=== PATIENT | female | born 1945 | race Caucasian/White ===

== ENCOUNTER → 2016-11-22 | Outpatient (CLI) | payer BC ==
[~2016-11-22] MED LIST: CLXOPS3 OP; FAMO20TA11 PO; LISI-725 PO; MULT-506 PO; SIMV20TA2 PO
[2016-11-22 11:07] LABS: ALT/SGPT 51 U/L (12-78); BLOOD UREA NITROGEN 17 mg/dl (7-18); BUN/CREATININE RATIO 21.3 (10-20); CARBON DIOXIDE 27 mmol/L (21-32); CHLORIDE 109 mmol/L (98-107); CREATININE 0.79 mg/dl (0.60-1.20); GLUCOSE 89 mg/dl (70-99); POTASSIUM 4.1 mmol/L (3.5-5.1); SODIUM 143 mmol/L (136-145); TRIGLYCERIDES 68 mg/dl (0-150); VERY LOW DENSITY LIPOPROT CALC 14 mg/dl
[2016-11-22 11:10] LABS: ALB/GLOB RATIO 0.9 (0.9-2); ALKALINE PHOSPHATASE 109 U/L (45-117); AST/SGOT 48 U/L (15-37); CHOLESTEROL 118 mg/dl (0-200); CHOLESTEROL/HDL RATIO 1.8; HDL CHOLESTEROL 66 mg/dl; LDL CHOLESTEROL CALCULATED 38 mg/dl
== END | disposition home or self-care (01) ==
LOC: C.LAB 09:26
PROVIDERS: ATTEND Family Medicine
DX: I10 Essential (primary) hypertension (principal); E78.5 Hyperlipidemia, unspecified; E55.9 Vitamin D deficiency, unspecified

== ENCOUNTER → 2017-11-28 | Outpatient (CLI) | payer BC ==
[2017-11-28 10:02] LABS: ALBUMIN 3.8 gm/dl (3.4-5.0); ALT/SGPT 71 U/L (12-78); BLOOD UREA NITROGEN 20 mg/dl (7-18); CALCIUM 9.7 mg/dl (8.5-10.1); CARBON DIOXIDE 23 mmol/L (21-32); CHOLESTEROL 106 mg/dl (0-200); CREATININE 0.81 mg/dl (0.60-1.20); GLUCOSE 88 mg/dl (70-99); POTASSIUM 3.8 mmol/L (3.5-5.1); SODIUM 139 mmol/L (136-145)
[2017-11-28 10:05] LABS: ALKALINE PHOSPHATASE 117 U/L (45-117); AST/SGOT 61 U/L (15-37); LDL CHOLESTEROL CALCULATED 32 mg/dl; TOTAL PROTEIN 7.8 gm/dl (6.4-8.2)
== END | disposition home or self-care (01) ==
LOC: C.LAB 06:45
PROVIDERS: ATTEND Nurse Practitioner Family
DX: E78.5 Hyperlipidemia, unspecified (principal); I10 Essential (primary) hypertension

== ENCOUNTER 2021-08-04 12:41 | Inpatient (IN) ==
[2021-08-04 14:44] LABS: Basophils # (auto) 0.01 K/uL (0-0.2); Basophils % (auto) 0.1 %; Eosinophils # (auto) 0.02 K/uL (0-0.5); Eosinophils % (auto) 0.2 %; Hematocrit (blood only) 35.8 % (37-47); Immature Granulocytes # (auto) 0.01 K/uL (0.00-0.02); Immature Granulocytes % (auto) 0.1 %; Lymphocytes # (auto) 1.76 K/uL (1.2-3.4); Lymphocytes % (auto) 20.7 %; Mean Corpuscular Hemoglobin 30.6 pg (25-34); Mean Corpuscular Hgb Conc 33.5 g/dL (32-36); Mean Corpuscular Volume 91.3 fL (80-100); Mean Platelet Volume 11.5 fL (7.4-10.4); Monocytes # (auto) 1.38 K/uL (0.11-0.59); Monocytes % (auto) 16.2 %; Neutrophils # (auto) 5.34 K/uL (1.4-6.5); Neutrophils % (auto) 62.7 %; Platelet Count 132 K/uL (130-400); RDW Coefficient of Variation 21.1 % (11.5-14.5); Red Blood Count 3.92 M/uL (4.2-5.4); White Blood Count 8.52 K/uL (4.8-10.8)
[2021-08-04 14:56] LABS: Alanine Aminotransferase 921 (12-78); BUN Creatinine Ratio 15.6 (10-20); Blood Urea Nitrogen 14 mg/dl (7-18); Calcium 8.1 mg/dl (8.5-10.1); Carbon Dioxide 22 mmol/L (21-32); Chloride 100 mmol/L (98-107); Est GFR (African American) 76.1 ml/min; Est GFR (Non-African American) 65.6 ml/min; Glucose 158 mg/dl (70-99); Lipase 1348 U/L (73-393); Sodium 131 mmol/L (136-145)
[2021-08-04 15:01] LABS: Albumin Globulin Ratio 0.4 (0.9-2); Alkaline Phosphatase 485 U/L (45-117); Aspartate Aminotransferase 2788 U/L (15-37); Bilirubin,Total 16.2 mg/dl (0.2-1); Globulin 4.6 gm/dl (2.5-4.0); Total Protein 6.6 gm/dl (6.4-8.2)
[2021-08-04 15:15] LABS: Anisocytosis Present; Polychromasia 1+; Target Cells 2+
--- NOTE | 2021-08-04 15:22 | Emergency Department Note ---
History of Present Illness General Chief complaint: Shortness of Breath/Dyspnea Stated complaint: WEAKNESS, SOB, CONGESTION, FEVER Time Seen by Provider: 08/04/21 14:47 Source: patient History of Present Illness Provider complaint: Shortness of breath Onset (ago): week(s) Location: chest Pain Consistency: + intermittent Maximum Pain Intensity: 0 Quality: + other (Short of breath) Relieved By: + rest Associated symptoms: + cough, + nausea/vomiting (Vomited once), + shortness of breath and + weakness; no chest pain or no fever/chills This is a 76-year-old female who presents with shortness of breath for the past week. She was diagnosed with Covid 2 weeks ago. She is vaccinated but has not received the booster shot. Her last shot was in September. She states that she developed bronchitis-like symptoms 2 weeks ago. She then developed shortness of breath about a week ago. She has been coughing throughout but denies any fever, loss of taste or smell or diarrhea. She has had no chest pain or abdominal pain. She does state that she vomited once several days ago but not since. She noted that her urine started to look very dark several days ago and then 2 days ago noticed that her skin was jaundiced. She states she does not drink alcohol regularly. Last time she had alcohol was about a month ago. She also complains of pain to her thighs. She states it feels like a cramping pain and it is worse when she tries to get up. She has difficulty walking due to the pain and also feels that her legs are weak. She has not noticed any swelling to her legs. Home Medications Medication Instructions Recorded Confirmed Type amlodipine 5 mg tablet 5 mg PO DAILY 08/04/21 08/04/21 History atorvastatin 80 mg tablet 80 mg PO DAILY 08/04/21 08/04/21 History ezetimibe 10 mg tablet 10 mg PO DAILY 08/04/21 08/04/21 History Allergies Allergy/AdvReac Type Severity Reaction Status Date / Time No Known Allergies Allergy Unknown Verified 08/04/21 16:27 Past Med/Surg History Medical History High cholesterol Hypertension Social History Smoking Status: Never smoker Feels Safe at Home: Yes Review of Systems See HPI for pertinent positives & negatives. and A total of 10 systems reviewed and were otherwise negative Physical Exam Vital Signs Vital Signs - 24 hr 08/04/21 12:53 08/04/21 16:41 08/04/21 18:00 Temperature 36.5 C 36.7 C Temperature Source Temporal Artery Scan Oral Pulse Rate 101 H Pulse Rate [Finger] 90 90 Pulse Rhythm Regular Pulse Strength Normal Respiratory Rate 20 18 18 Respiratory Effort / Characteristics Non-Labored Spontaneous Respiratory Depth Normal Respiratory Pattern Regular Blood Pressure 131/75 Blood Pressure [Right Arm] 85/42 L 85/42 L Blood Pressure Mean 93 Blood Pressure Mean [Right Arm] 56 56 Blood Pressure Position Sitting Pulse Oximetry 97 97 99 Oxygen Delivery Method Room Air Room Air Room Air Sepsis Recent Fever Within 48 Hours No Sepsis New/Unexplained Change in Mental Status N/A Sepsis Action Taken by Nursing No Action Required Constitutional: Vital signs reviewed. Eyes: Pupils are equal round reactive to light. Scleral icterus. ENT: Pharynx is clear without erythema or exudate. Mucous membranes are dry. Neck supple without meningeal signs. Respiratory: Clear to auscultation bilaterally. Breath sounds are equal bilaterally. Cardiovascular: Regular rate and rhythm. No rubs or gallops. GI: Soft, nondistended and nontender. Bowel sounds are present. Musculoskeletal: Nonpitting edema of the lower extremities. No lower extremity tenderness. Normal distal pulses. Integumentary: Jaundiced. Neurological: The patient is awake and alert. No focal deficits. Motor strength is 5 out of 5 in the distal lower extremities. Unable to assess proximal strength due to pain. Psychiatric: Normal affect. Not anxious appearing. Course Administered Medications Discontinued Medications Potassium Chloride (K Carlos / Wtr) 10 meq in 100 mls @ 100 mls/hr IV Q1H CHAUNCEY Stop: 08/04/21 18:14 Last Infusion: 08/04/21 20:41 Dose: 100 mls/hr Documented by: [id number] Admin: 08/04/21 19:10 Dose: 100 mls/hr Documented by: [id number] Infusion: 08/04/21 18:52 Dose: 100 mls/hr Documented by: [id number] Admin: 08/04/21 17:52 Dose: 100 mls/hr Documented by: [id number] Sodium Chloride (Nss 1000ml) 1,000 mls @ 999 mls/hr IV .Q1H1M ONE Stop: 08/04/21 19:25 Last Admin: 08/04/21 20:42 Dose: 999 mls/hr Documented by: [id number] Piperacillin Sod/Tazobactam (Sod 4.5 gm/ Dextrose) 120 mls @ 200 mls/hr IV NOW ONE; Protocol Stop: 08/04/21 19:00 Last Admin: 08/04/21 21:31 Dose: Not Given Documented by: [id number] Acetylcysteine 12,300 mg/ (Dextrose) 261.5 mls @ 200 mls/hr IV ONCE ONE; Protocol Stop: 08/04/21 19:46 Last Admin: 08/04/21 21:32 Dose: 200 mls/hr Documented by: [id number] Critical Care Time Critical Care Time: Yes Total Critical Care Time: 35 I have personally spent approximately 35 minutes of critical care time in the direct management of this patient. This includes bedside care, interpretation of diagnostic studies, and testing, discussion with consultants, patient, and family members, and other required patient management activities. These minutes are in excess of all separately billable procedures. Medical Decision Making Differential Diagnosis Pneumonia, dehydration, COVID-19, hepatitis, biliary obstruction, pancreatitis, choledocholithiasis Medical Records Attestation: I reviewed the patient's medical records. I did perform a limited focused review of portions of the patient's old chart on the electronic medical record. The patient has had no recent pertinent visits to this hospital. Home Medications Current Medication List: was personally reviewed by me Laboratory Data Attestation: I reviewed the patient's lab results. Result diagrams: 08/04/21 Unknown 08/04/21 Unknown Lab Results 08/04/21 08/04/21 08/04/21 Range/Units 14:19 17:43 17:43 PT (9.0-12.0) Seconds INR (0.9-1.1) APTT (21.0-31.0) Seconds PTT Ratio Phosphorus 1.4 L* (2.5-4.9) mg/dl Magnesium 2.6 H (1.8-2.4) mg/dl Acetaminophen Cancelled Hep Bs Antigen (Neg) Hepatitis C Antibody (Neg) Monoscreen Negative (Negative) SARS-CoV-2, RNA, NAAT (NEGATIVE) 08/04/21 08/04/2121 Range/Units 17:43 17:43 19:00 PT 13.4 H (9.0-12.0) Seconds INR 1.4 H (0.9-1.1) APTT 39.9 H (21.0-31.0) Seconds PTT Ratio 1.5 Phosphorus (2.5-4.9) mg/dl Magnesium (1.8-2.4) mg/dl Acetaminophen Hep Bs Antigen Neg (Neg) Hepatitis C Antibody Neg (Neg) Monoscreen (Negative) SARS-CoV-2, RNA, NAAT NEGATIVE (NEGATIVE) Imaging Data Radiologist's Impression: Chest X-Ray 08/04/21 15:18 XR chest 2V PA/lateral HISTORY: 76 years-old Female covid eval for pna acute shortness of breath COMPARISON: None TECHNIQUE: AP and lateral views of the chest FINDINGS: The cardiac mediastinal and hilar silhouettes are within normal limits. Coarse mitral annular calcifications. No pneumothorax, pleural effusion, airspace consolidation or overt pulmonary edema. No acute fracture. Degenerative changes of the shoulders and spine. IMPRESSION: No acute process. ACT 112: Negative or not required by law. The above report was generated using voice recognition software. It may contain grammatical, syntax or spelling errors. Electronically signed by: Can Oshea M.D. 08/04/2021 3:39 PM Liver Ultrasound 08/04/21 15:18 US liver HISTORY: 76 years-old Female jaundice/pancreatitis eval for bioliary obstructio acute jaundice with upper abdominal pain COMPARISON: None TECHNIQUE: Multiple real-time sonographic images of the abdominal right upper quadrant were obtained assessing grayscale appearance and color flow FINDINGS: The imaged pancreas is unremarkable. Mild nonspecific heterogeneity of the liver. Mild marginal nodularity. No hepatic mass or intrahepatic biliary ductal dilation. The common bile duct is normal measuring 4 mm. Cholecystectomy. The imaged right kidney is unremarkable without hydronephrosis. IMPRESSION: 1. Cholecystectomy. 2. No biliary ductal dilation. 3. Heterogeneity of the liver with questioned marginal nodularity. Correlate with LFTs to exclude cirrhosis. ACT 112: Negative or not required by law. The above report was generated using voice recognition software. It may contain grammatical, syntax or spelling errors. Electronically signed by: Can Oshea M.D. 08/04/2021 5:55 PM Venous Doppler Study 08/04/21 15:23 BILATERAL LOWER EXTREMITY VENOUS DOPPLER HISTORY: Acute pain and swelling of the lower legs pain eval for DVT COMPARISON STUDY: None. FINDINGS: There is normal compressibility, flow, and augmentation within the bilateral lower extremity deep venous systems. IMPRESSION: No DVT within the right or left lower extremity. ACT 112: Negative or not required by law. Electronically signed by: Can Oshea M.D. 08/04/2021 5:44 PM ECG Data Attestation: I personally reviewed and interpreted this ECG as follows: Indication: + SOB/dyspnea Rate (beats per minute): 96 Rhythm: + normal sinus ECG Intervals/blocks: + Prolonged QT ECG ST segments: no ST elevation ECG Findings: + LVH Comparison ECG Date: no prior available MDM Narrative I did evaluate the patient as noted above. The patient has contracted COVID-19 about 2 weeks ago. She is presenting here today with pain and weakness in her l egs as well as jaundice. IV access was established. I did place an order for continuous cardiac monitoring. The monitor showed normal sinus rhythm at a rate of 99 bpm. I did order and personally review the patient's 12-lead EKG as described above. She has a prolonged QT interval which may be related to her hypokalemia. No acute ischemia is noted. She does have evidence of LVH. No old EKGs available for comparison. I did order and personally reviewed the images of the patient's chest x-ray as described above. There is no evidence of pneumonia. I did order a urine analysis. I did order and review the patient's blood work as noted in the electronic medical record. CBC does not demonstrate leukocytosis or anemia. Platelet count is 132. Electrolytes demonstrate a sodium of 131 and a potassium of 3. I did treat her with IV KCl. Calcium is 8.1. LFTs are grossly abnormal with a ALT and AST of 921 and 2788 respectively. Total bili is 16.2. Alk phos is 45 and lipase is 1348. She states she is not a drinker and has not had alcohol for over a month. She denies using Tylenol or acetaminophen. She states she only takes ibuprofen. She denies taking any combination medications. Monospot is negative. Hepatitis B antigen and hepatitis C antibody are negative. INR is elevated at 1.4. I did order an ultrasound of the right upper quadrant and Doppler of the lower extremities bilaterally. I did review the images myself as well as the radiology report as described above. There is no evidence of biliary obstruction. There is no evidence of DVT in the lower extremities. I did discuss the test results with the patient. I did discuss the case with the hospitalist as well as Dr. Betancourt from gastroenterology. Dr. Betancourt recommended treating the patient with acetylcysteine. I did order Acetadote IV based on a weight-based protocol. She was given a bolus over an hour and then a subsequent infusion. She will require further imaging to evaluate for pancreatic head mass and MRCP. She had a positive home test for COVID-19 but we did test her here and it was negative. Impression & Plan Hyperbilirubinemia, Hepatitis, Acute hypokalemia, Hypocalcemia, Acute pancreatitis, Bilateral leg pain, Ambulatory dysfunction Discharge Plan Visit Data Chief Complaint: Shortness of Breath/Dyspnea Stated Complaint: WEAKNESS, SOB, CONGESTION, FEVER ED Provider: Lai Aiken Discharge Problem: Hyperbilirubinemia, Hepatitis, Acute hypokalemia, Hypocalcemia, Acute pancreatitis, Bilateral leg pain, Ambulatory dysfunction Patient Disposition: Being Evaluated by Hospitalist
--- NOTE | 2021-08-04 15:40 | XRay Report ---
XR chest 2V PA/lateral HISTORY: 76 years-old Female covid eval for pna acute shortness of breath COMPARISON: None TECHNIQUE: AP and lateral views of the chest FINDINGS: The cardiac mediastinal and hilar silhouettes are within normal limits. Coarse mitral annular calcifi cations. No pneumothorax, pleural effusion, airspace consolidation or overt pulmonary edema. No acute fracture. Degenerative changes of the shoulders and spine. IMPRESSION: No acute process. ACT 112: Negative or not required by law. The above report was generated using voice recognition software. It may contain grammatical, syntax o r spelling errors. Electronically signed by: Can Oshea M.D. 08/04/2021 3:39 PM
[2021-08-04 17:10] LABS: C Reactive Protein 4.42 mg/dl (0-0.29)
--- NOTE | 2021-08-04 17:45 | Ultrasound Report ---
BILATERAL LOWER EXTREMITY VENOUS DOPPLER HISTORY: Acute pain and swelling of the lower legs pain eval for DVT COMPARISON STUDY: None. FINDINGS: There is normal compressibility, flow, and augmentation within the bilateral lower extremit y deep venous systems. IMPRESSION: No DVT within the right or left lower extremity. ACT 112: Negative or not required by law. Electronically signed by: Can Oshea M.D. 08/04/2021 5:44 PM
[2021-08-04] MEDS: POTASSIUM CHLORIDE / WTR 10 MEQ/100 ML PLCT IV SCH ×2 (17:52→19:10)
--- NOTE | 2021-08-04 17:56 | Ultrasound Report ---
US liver HISTORY: 76 years-old Female jaundice/pancreatitis eval for bioliary obstructio acute jaundice with upper abdominal pain COMPARISON: None TECHNIQUE: Multiple real-time sonographic images of the abdominal right upper quadrant were obtained assessing grayscale appearance and color flow FINDINGS: The imaged pancreas is unremarkable. Mild nonspecific heterogeneity of the liver. Mild marginal nodul arity. No hepatic mass or intrahepatic biliary ductal dilation. The common bile duct is normal measur ing 4 mm. Cholecystectomy. The imaged right kidney is unremarkable without hydronephrosis. IMPRESSION: 1. Cholecystectomy. 2. No biliary ductal dilation. 3. Heterogeneity of the liver with questioned marginal nodularity. Correlate with LFTs to exclude cir rhosis. ACT 112: Negative or not required by law. The above report was generated using voice recognition software. It may contain grammatical, syntax o r spelling errors. Electronically signed by: Can Oshea M.D. 08/04/2021 5:55 PM
[2021-08-04 18:05] LABS: INR 1.4 (0.9-1.1); Partial Thromboplastin Ratio 1.5; Partial Thromboplastin Time 39.9 Seconds (21.0-31.0); Prothrombin Time 13.4 Seconds (9.0-12.0)
[2021-08-04] MEDS ORDERED: PIPERACILLIN/TAZOBACTAM 4.5 GM in DEXTROSE 5% 100 ML IV ONE (18:25)
[2021-08-04] MEDS ORDERED: PIPERACILL/TAZOBAC CONSULT ACTIVE PRN (18:25)
[2021-08-04] MEDS ORDERED: SODIUM CHLORIDE 0.9% 1000ML 1,000 ML IV ONE (18:25)
[2021-08-04 18:34] LABS: Hepatitis B Surf Ag Rflx Conf Neg (Neg)
[2021-08-04] MEDS ORDERED: AcetylCYSTEINE 12,300 MG in DEXTROSE 5% 200 ML IV ONE (18:47)
[2021-08-04] MEDS ORDERED: AcetylCYSTEINE 8,200 MG in DEXTROSE 5% 1,000 ML IV ONE (18:47)
[2021-08-04 19:02] LABS: Hepatitis C IgG 13Yrs+Old_Rflx Neg (Neg)
[2021-08-04 20:28] LABS: Magnesium 2.6 mg/dl (1.8-2.4); Phosphorus 1.4 mg/dl (2.5-4.9)
--- NOTE | 2021-08-04 22:13 | History & Physical Report ---
Date of Service August 04, 2021 Assessment & Plan (1) Acute liver failure: Plan: No hepatic encephalopathy Hepatitis viral panel, EBV, CMV, HSV, LANCE, anti-smooth muscle antibodies Start 21 hour acetylcysteine IV protocol Discussed with Dr Betancourt. Patient unable to tolerate MRCP therefore will get CT with and without contrast to assess for pancreatic mass Repeat INR at 10 PM to assess for acute progression. If significantly increasing will discuss with [facility] for potential transfer. (2) Hypertension: Plan: Hold amlodipine (3) High cholesterol: Plan: Hold atorvastatin and ezetimibe (4) Acute hypokalemia: Plan: KCl 10 milliequivalents x2 IV given in the ER Repeat with next labs Plan: VTE prophylaxis - deferred due to increased bleeding risk in liver failure Diet - NPO Disposition - admit to PCU pending clinical improvement Admission and Anticipated Discharge Date Admission Date: August 04, 2021 History of Present Illness Chief Complaint: Jaundice Primary Care Provider: Jasiel Sauceda MD Nasrin Ramirez is a 76-year-old female with no prior history of liver disease who presents to the ER with jaundice. She reports chronic bronchitis but possibly worsening cough and cold symptoms in the last 3 to 4 weeks. No significant sore throat. She reports having a home test for Covid 19 2 weeks ago which was positive, however PCR testing 7 days ago was negative. For the past week she is getting increasingly fatigued. Over the last 2 days she has noted significant yellowing of her skin and eyes. She reports no recent alcohol use (approximately 1 month ago). She denies any fever, chills, urinary symptoms, abdominal pain, change in bowels, melena, bright red blood in stool. In the ER LFTs noted to be significantly elevated with total bilirubin of 16.2. Fortunately platelets within normal limits, INR 1.4. Ultrasound liver did not show any obstructing cause. She was referred to medicine for admission ongoing management of acute liver failure. Allergies Allergy/AdvReac Type Severity Reaction Status Date / Time No Known Allergies Allergy Unknown Verified 08/04/21 16:27 Home Medications Medication Instructions Recorded Confirmed Type amlodipine 5 mg tablet 5 mg PO DAILY 08/04/21 08/04/21 History atorvastatin 80 mg tablet 80 mg PO DAILY 08/04/21 08/04/21 History ezetimibe 10 mg tablet 10 mg PO DAILY 08/04/21 08/04/21 History Past Med/Surg History Medical History High cholesterol Hypertension Social History Smoking Status: Never smoker Feels Safe at Home: Yes Review of Systems Review of Systems: All systems reviewed & are unremarkable except as noted in HPI & below Physical Exam Constitutional: well nourished; no acute distress Eyes: sclerae not anicteric ENMT: external ear and nose normal, oropharynx normal Neck: trachea midline, no thyromegaly Respiratory: normal respiratory effort, lungs clear to auscultation Cardiovascular: RRR, no murmur, no edema Gastrointestinal (Abdomen): Inspection/Auscultation: + hypoactive bowel sounds; abdomen not distended Percussion/Palpation: abdomen soft; abdomen nontender, no guarding and abdomen not rigid Musculoskeletal: no cyanosis or clubbing, extremities motor strength 5/5 Skin: + jaundice Neurologic: moves all extremities and awake; not confused Speech / Cognition: normal speech Motor/Sensory: no pronator drift Psychiatric: A+Ox3, euthymic affect Genitourinary: no CVA tenderness Results & Data Results & Data ([facility]) Vital Signs (Past 12 Hours) Vital Signs Temp Pulse Pulse Resp BP BP Pulse Ox 08/04/21 20:47 91 H 17 98 08/04/21 20:45 96 H 17 125/82 98 08/04/21 18:00 36.7 C 90 18 85/42 L 99 08/04/21 16:41 90 18 85/42 L 97 08/04/21 12:53 36.5 C 101 H 20 131/75 97 Diagnostic Findings XR chest 2V PA/lateral HISTORY: 76 years-old Female covid eval for pna acute shortness of breath COMPARISON: None TECHNIQUE: AP and lateral views of the chest FINDINGS: The cardiac mediastinal and hilar silhouettes are within normal limits. Coarse mitral annular calcifications. No pneumothorax, pleural effusion, airspace consolidation or overt pulmonary edema. No acute fracture. Degenerative changes of the shoulders and spine. IMPRESSION: No acute process. US liver HISTORY: 76 years-old Female jaundice/pancreatitis eval for bioliary obstructio acute jaundice with upper abdominal pain COMPARISON: None TECHNIQUE: Multiple real-time sonographic images of the abdominal right upper quadrant were obtained assessing grayscale appearance and color flow FINDINGS: The imaged pancreas is unremarkable. Mild nonspecific heterogeneity of the liver. Mild marginal nodularity. No hepatic mass or intrahepatic biliary ductal dilation. The common bile duct is normal measuring 4 mm. Cholecystectomy. The imaged right kidney is unremarkable without hydronephrosis. IMPRESSION: 1. Cholecystectomy. 2. No biliary ductal dilation. 3. Heterogeneity of the liver with questioned marginal nodularity. Correlate with LFTs to exclude cirrhosis. BILATERAL LOWER EXTREMITY VENOUS DOPPLER HISTORY: Acute pain and swelling of the lower legs pain eval for DVT COMPARISON STUDY: None. FINDINGS: There is normal compressibility, flow, and augmentation within the bilateral lower extremity deep venous systems. IMPRESSION: No DVT within the right or left lower extremity. Medications Administered ER medications given: Acetylcysteine 21-hour protocol IV ECG Indication: other (Hypokalemia) Rate (beats per minute): 96 Rhythm: normal sinus Findings: + T-wave inversion (Inferior) Comparison ECG Date: from (September 13, 2011) Change: the following changes noted (T wave inversions are new) Code Status & VTE Plan Code Status Full VTE Prophylaxis Plan VTE Prophylaxis will be ordered: Yes PG Care Time/CCT Total # of Minutes Spent Total Time Spent with Patient: Total time spent is greater than 50% in coordination of care (as documented) at patient's floor/unit and/or counseling patient: Coding Level of Care Code 80661 Initial Inpt Care Lvl 3 Diagnoses Acute liver failure K72.00 Hypertension I10 High cholesterol E78.00 Acute hypokalemia E87.6
[2021-08-04] MEDS ORDERED: OPTIRAY 320 100ml IV ONE (22:52)
--- NOTE | 2021-08-04 23:18 | CT Scan Report ---
CT abdomen pelvis wo/w con CLINICAL HISTORY: Acute liver failure, pancreatic protocol ?mass TECHNIQUE: Helical axial images of the abdomen and pelvis were obtained. Automated dose lowering tech niques and/or adjustment according to patient size were utilized for this exam. This exam was perfor med with and without intravenous contrast. COMPARISON: None available at the time of this dictation. FINDINGS: Lower chest: Bibasilar atelectasis versus scarring is seen. Liver: Nodular contour of the liver is seen compatible with cirrhosis. Gallbladder and biliary tree: Patient is status post cholecystectomy. No intra- or extrahepatic bilia ry ductal dilation. Pancreas: There is a 6 mm hypodensity in the pancreatic head which does not demonstrate significant e nhancement. No enhancing pancreatic mass is seen. The pancreatic duct is normal in caliber. Spleen: Splenule is incidentally noted. Adrenals: Unremarkable. Kidneys and ureters: Unremarkable. Bladder: Unremarkable. Reproductive organs: Unremarkable. Bowel: Diverticulosis is seen without evidence of diverticulitis. There is mild wall thickening and f at stranding about the cecum. Lymph nodes Retroperitoneal: Subcentimeter lymph nodes are noted. Mesenteric: Subcentimeter lymph nodes are noted. Pelvic: Unremarkable. Peritoneum: Mild fat stranding is seen about the right lower quadrant. Vessels: Unremarkable. Abdominal wall: Unremarkable. Bones: Unremarkable. IMPRESSION: 1. Nodular contour of the liver, compatible with cirrhosis. 2. No suspicious pancreatic mass is seen. 6 mm hypodensity in the pancreatic head may represent panc reatic cyst versus IPMN. If there is clinical concern, MRCP can be performed on a nonemergent basis. 3. Mild wall thickening and fat stranding about the cecum is nonspecific. Clinical correlation is re commended. ACT 112: Negative or not required by law. Electronically signed by: Nadeem Subramanian M.D. 08/04/2021 11:17 PM
[2021-08-04 23:36] LABS: Appearance Urine Turbid (Clear); Bacteria Urine Automated 4+ (Negative); Blood Urine 3+ (Negative); Color Urine Orange; Epithelial Cell Urine Auto >30 /lpf (0-5); Glucose Urine UA Negative (Negative); Ketones Urine Negative (Negative); Leukocyte Esterase Urine 1+ (Negative); Nitrite Urine Positive (Negative); Protein Urine 2+ (Negative); Specific Gravity Urine 1.016 (1.000-1.030); Urobilinogen Urine Negative (Negative); pH Urine 5.5 (4.5-7.5)
[2021-08-04 23:41] LABS: Bilirubin Urine 3+ (Negative)
[2021-08-04 23:55] LABS: INR 1.5 (0.9-1.1); Prothrombin Time 14.8 Seconds (9.0-12.0)
[2021-08-05 00:35] LABS: Base Excess ABG -4.2 mEq/L (-9-1.8); HCO3 ABG 18 mmol/L (19-24); Oxygen Saturation ABG 98.1 % (90-95); PCO2 ABG 26 mmHg (35-46); PO2 ABG 103 mmHg (80-95); pH ABG 7.47 (7.35-7.45)
[2021-08-05 00:37] LABS: Allen Test POS (Pos)
[2021-08-05 00:49] LABS: Albumin Level 1.6 gm/dl (3.4-5.0); BUN Creatinine Ratio 18.2 (10-20); Calcium 7.7 mg/dl (8.5-10.1); Creatinine Clr Calc Pharmacy 69.1 ml/min; Est GFR (African American) 89.6 ml/min; Est GFR (Non-African American) 77.3 ml/min; Potassium 3.4 mmol/L (3.5-5.1)
[2021-08-05] MEDS ORDERED: POTASSIUM PHOS 3 MMOL/1 ML INFUSION IV STA (00:58)
[2021-08-05 01:10] LABS: Albumin Globulin Ratio 0.4 (0.9-2); Bilirubin,Total 14.1 mg/dl (0.2-1); Globulin 4.2 gm/dl (2.5-4.0); Total Protein 5.8 gm/dl (6.4-8.2)
[2021-08-05] MEDS ORDERED: POTASSIUM PHOSPHATE 15 MMOL in SODIUM CHLORIDE 0.9% 250 ML IV ONE (01:15)
[2021-08-05 01:35] LABS: Appearance Urine Clear (Clear); Bacteria Urine Automated 4+ (Negative); Bilirubin Urine 2+ (Negative); Blood Urine 3+ (Negative); Color Urine Dark Yellow; Epithelial Cell Urine Auto 20-30 /lpf (0-5); Glucose Urine UA Negative (Negative); Ketones Urine 1+ (Negative); Leukocyte Esterase Urine 1+ (Negative); Nitrite Urine Negative (Negative); Protein Urine 2+ (Negative); Specific Gravity Urine 1.038 (1.000-1.030); Urobilinogen Urine Negative (Negative); pH Urine 6.5 (4.5-7.5)
[2021-08-05 06:45] LABS: Mean Corpuscular Hgb Conc 33.6 g/dL (32-36)
[2021-08-05 06:53] LABS: INR 1.6 (0.9-1.1)
[2021-08-05 07:12] LABS: Albumin Level 1.6 gm/dl (3.4-5.0); BUN Creatinine Ratio 18.6 (10-20); Calcium 7.9 mg/dl (8.5-10.1); Creatinine Clr Calc Pharmacy 74.8 ml/min; Est GFR (African American) 95.6 ml/min; Est GFR (Non-African American) 82.5 ml/min
[2021-08-05 07:36] LABS: Basophils # (auto) 0.01 K/uL (0-0.2); Basophils % (auto) 0.1 %; Echinocytes 1+; Eosinophils # (auto) 0.06 K/uL (0-0.5); Eosinophils % (auto) 0.9 %; Hemoglobin 11.1 g/dL (12.0-16.0); Immature Granulocytes # (auto) 0.01 K/uL (0.00-0.02); Immature Granulocytes % (auto) 0.1 %; Lymphocytes # (auto) 2.01 K/uL (1.2-3.4); Lymphocytes % (auto) 29.9 %; Mean Corpuscular Hemoglobin 30.2 pg (25-34); Mean Corpuscular Volume 89.9 fL (80-100); Monocytes # (auto) 1.26 K/uL (0.11-0.59); Monocytes % (auto) 18.8 %; Neutrophils # (auto) 3.37 K/uL (1.4-6.5); Neutrophils % (auto) 50.2 %; Platelet Count 95 K/uL (130-400); Platelet Estimate Decreased (Normal); Polychromasia 1+; RDW Coefficient of Variation 20.6 % (11.5-14.5); RDW Standard Deviation 65.9 fL (36.4-46.3); Red Blood Count 3.67 M/uL (4.2-5.4); Target Cells 1+; White Blood Count 6.72 K/uL (4.8-10.8)
[2021-08-05 08:16] LABS: Albumin Globulin Ratio 0.4 (0.9-2); Bilirubin,Total 13.3 mg/dl (0.2-1); Globulin 3.9 gm/dl (2.5-4.0); Total Protein 5.5 gm/dl (6.4-8.2)
--- NOTE | 2021-08-05 10:17 | Electrocardiogram Report ---
Test Reason : Blood Pressure : / mmHG Vent. Rate : 096 BPM Atrial Rate : 096 BPM P-R Int : 136 ms QRS Dur : 092 ms QT Int : 394 ms P-R-T Axes : 000 -09 -14 degrees QTc Int : 497 ms Normal sinus rhythm Early Transition Voltage criteria for left ventricular hypertrophy Nonspecific T wave abnormality Prolonged QT Abnormal ECG When compared with ECG of 13-SEP-2011 13:04, T wave inversion now evident in Inferior leads Nonspecific T wave abnormality now evident in Anterolateral leads QT has lengthened ?? limb lead reversal and inappropriate precordial lead placement Confirmed by Beltran Sheldon ([id number]) on 08/05/2021 10:17:18 AM Referred By: REFERRED SELF Confirmed By:Beltran Sheldon
[2021-08-05] MEDS ORDERED: POTASSIUM CHLORIDE CRTAB 20 MEQ TABCR PO STA (12:49)
--- NOTE | 2021-08-05 15:16 | Hospitalist Progress Note ---
Date of Service August 05, 2021 Assessment & Plan (1) Acute liver failure: Plan: Etiology is uncertain Patient denies significant alcohol use or any recent hepatotoxic medications Hepatitis viral panel, EBV, CMV, HSV, LANCE, anti-smooth muscle antibodies all requested CT abdomen shows evidence of cirrhosis GI on consult, appreciate recs (2) Hypertension: Plan: Hold amlodipine (3) Pancreatitis: Plan: elevated lipase could be due to gall stone pancreatitis US did not show any evidence of gall stones continue hydration (4) Rhabdomyolysis: Plan: Elevated CPK, source likely from the liver itself will monitor will obtain alpha feto proteins (5) High cholesterol: Plan: Hold atorvastatin and ezetimibe (6) Acute hypokalemia: Plan: KCl 10 milliequivalents x2 IV given in the ER Repeat with next labs Plan: VTE prophylaxis - deferred due to increased bleeding risk in liver failure Diet - NPO Disposition - admit to PCU pending clinical improvement Admission and Anticipated Discharge Date Admission Date: August 04, 2021 Subjective patient seen and examined, denies abdominal pain, nausea or vomiting Review of Systems Review of Systems: All systems reviewed are negative, apart from the ones contained in the history. Physical Exam Physical Exam: The patient is awake, alert and oriented 3, well developed and well nourished, normocephalic and atraumatic, lying in bed and in no acute distress. HEENT--PERRL, EOMI, mucous membranes and oropharynx mildly dry Neck--supple. No JVD. No bruits. Thyroid normal, trachea midline, no adenopathy. Heart--normal S1 and S2. No murmurs, rubs or gallops. Lungs--clear bilaterally, no respiratory distress, no accessory muscle use. Abdomen--normal bowel sounds and soft. Mild epigastric and left sided abdominal pain Extremities--no cyanosis or clubbing. No edema. Dermatologic--normal skin turgor, normal color, no abnormal lymph nodes, no rash. Neurologic--cranial nerves II through XII grossly intact. Rheumatologic--normal range of motion. Psychiatric--normal affect. Results & Data Results & Data ([facility]) Vital Signs (Past 12 Hours) Vital Signs Pulse Resp BP Pulse Ox 08/05/21 10:38 87 20 120/61 95 08/05/21 05:04 90 18 122/71 95 Laboratory Results Laboratory Results - last 24 hr 12/10/21 12/10/21 12/10/21 00:16 14:19 17:43 WBC 8.52 RBC 3.92 L Hgb 12.0 Hct 35.8 L MCV 91.3 MCH 30.6 MCHC 33.5 RDW Std Deviation 69.0 H RDW Coeff of Janet 21.1 H Plt Count 132 MPV 11.5 H Immature Gran % (Auto) 0.1 Neut % (Auto) 62.7 Lymph % (Auto) 20.7 [place] % (Auto) 16.2 Eos % (Auto) 0.2 Baso % (Auto) 0.1 Neut # (Auto) 5.34 Lymph # (Auto) 1.76 [place] # (Auto) 1.38 H Eos # (Auto) 0.02 Baso # (Auto) 0.01 Immature Gran # (Auto) 0.01 Platelet Estimate Polychromasia 1+ Anisocytosis Present Target Cells 2+ Echinocytes PT INR APTT PTT Ratio ABG pH ABG pCO2 ABG pO2 ABG HCO3 ABG O2 Saturation ABG Base Excess Satya Test Barometric Pressure Oxygen Given Sodium Potassium Chloride Carbon Dioxide Anion Gap BUN Creatinine Est Cr Clr Drug Dosing Est GFR ( Amer) Est GFR (Non-Af Amer) BUN/Creatinine Ratio Glucose Lactate Calcium Phosphorus 1.4 L* Magnesium 2.6 H Total Bilirubin AST ALT Alkaline Phosphatase Total Creatine Kinase C-Reactive Protein Total Protein Albumin Globulin Albumin/Globulin Ratio Specimen Hemolysis Urine Color Urine Appearance Urine pH Ur Specific Pound Urine Protein Urine Glucose (UA) Urine Ketones Urine Blood Urine Nitrite Urine Bilirubin Urine Urobilinogen Ur Leukocyte Esterase Urine WBC (Auto) Urine RBC (Auto) U Hyaline Cast (Auto) U Epithel Cells (Auto) Urine Bacteria (Auto) Granular Casts Urine Yeast Acetaminophen Screen Acetaminophen Cancelled LANCE Screen Anti-Smooth Muscle Ab CMV IgM Ab CMV IgG Ab/TORCH EBV Capsid Ag IgG Ab EBV Capsid Ag IgM Ab EBV EA Restrict+Diffuse EBV Nuclear Antigen Ab EBV Antibody Interp Hepatitis A IgM Ab Hep Bs Antigen Hep B Core IgM Ab Hepatitis C Antibody Herpes Virus Source HSV I IgG Ab HSV I IgM TORCH HSV II IgG HSV II IgM TORCH HSV I DNA PCR HSV II DNA PCR Monoscreen SARS-CoV-2, RNA, NAAT 08/04/21 08/04/21 08/04/21 17:43 17:43 17:43 WBC RBC Hgb Hct MCV MCH MCHC RDW Std Deviation RDW Coeff of Janet Plt Count MPV Immature Gran % (Auto) Neut % (Auto) Lymph % (Auto) [place] % (Auto) Eos % (Auto) Baso % (Auto) Neut # (Auto) Lymph # (Auto) [place] # (Auto) Eos # (Auto) Baso # (Auto) Immature Gran # (Auto) Platelet Estimate Polychromasia Anisocytosis Target Cells Echinocytes PT INR APTT PTT Ratio ABG pH ABG pCO2 ABG pO2 ABG HCO3 ABG O2 Saturation ABG Base Excess Satya Test Barometric Pressure Oxygen Given Sodium Potassium Chloride Carbon Dioxide Anion Gap BUN Creatinine Est Cr Clr Drug Dosing Est GFR ( Amer) Est GFR (Non-Af Amer) BUN/Creatinine Ratio Glucose Lactate Calcium Phosphorus Magnesium Total Bilirubin AST ALT Alkaline Phosphatase Total Creatine Kinase C-Reactive Protein Total Protein Albumin Globulin Albumin/Globulin Ratio Specimen Hemolysis Urine Color Urine Appearance Urine pH Ur Specific Pound Urine Protein Urine Glucose (UA) Urine Ketones Urine Blood Urine Nitrite Urine Bilirubin Urine Urobilinogen Ur Leukocyte Esterase Urine WBC (Auto) Urine RBC (Auto) U Hyaline Cast (Auto) U Epithel Cells (Auto) Urine Bacteria (Auto) Granular Casts Urine Yeast Acetaminophen Screen Acetaminophen LANCE Screen Anti-Smooth Muscle Ab CMV IgM Ab CMV IgG Ab/TORCH EBV Capsid Ag IgG Ab EBV Capsid Ag IgM Ab EBV EA Restrict+Diffuse EBV Nuclear Antigen Ab EBV Antibody Interp Hepatitis A IgM Ab Pending Hep Bs Antigen Neg Hep B Core IgM Ab Pending Hepatitis C Antibody Neg Herpes Virus Source HSV I IgG Ab HSV I IgM TORCH HSV II IgG HSV II IgM TORCH HSV I DNA PCR HSV II DNA PCR Monoscreen Negative SARS-CoV-2, RNA, NAAT 08/04/21 08/04/21 08/04/21 17:43 19:00 20:10 WBC RBC Hgb Hct MCV MCH MCHC RDW Std Deviation RDW Coeff of Janet Plt Count MPV Immature Gran % (Auto) Neut % (Auto) Lymph % (Auto) [place] % (Auto) Eos % (Auto) Baso % (Auto) Neut # (Auto) Lymph # (Auto) [place] # (Auto) Eos # (Auto) Baso # (Auto) Immature Gran # (Auto) Platelet Estimate Polychromasia Anisocytosis Target Cells Echinocytes PT 13.4 H INR 1.4 H APTT 39.9 H PTT Ratio 1.5 ABG pH ABG pCO2 ABG pO2 ABG HCO3 ABG O2 Saturation ABG Base Excess Satya Test Barometric Pressure Oxygen Given Sodium Potassium Chloride Carbon Dioxide Anion Gap BUN Creatinine Est Cr Clr Drug Dosing Est GFR ( Amer) Est GFR (Non-Af Amer) BUN/Creatinine Ratio Glucose Lactate Calcium Phosphorus Magnesium Total Bilirubin AST ALT Alkaline Phosphatase Total Creatine Kinase C-Reactive Protein Total Protein Albumin Globulin Albumin/Globulin Ratio Specimen Hemolysis Urine Color Urine Appearance Urine pH Ur Specific Pound Urine Protein Urine Glucose (UA) Urine Ketones Urine Blood Urine Nitrite Urine Bilirubin Urine Urobilinogen Ur Leukocyte Esterase Urine WBC (Auto) Urine RBC (Auto) U Hyaline Cast (Auto) U Epithel Cells (Auto) Urine Bacteria (Auto) Granular Casts Urine Yeast Acetaminophen Screen Acetaminophen Cancelled LANCE Screen Anti-Smooth Muscle Ab CMV IgM Ab CMV IgG Ab/TORCH EBV Capsid Ag IgG Ab EBV Capsid Ag IgM Ab EBV EA Restrict+Diffuse EBV Nuclear Antigen Ab EBV Antibody Interp Hepatitis A IgM Ab Hep Bs Antigen Hep B Core IgM Ab Hepatitis C Antibody Herpes Virus Source HSV I IgG Ab HSV I IgM TORCH HSV II IgG HSV II IgM TORCH HSV I DNA PCR HSV II DNA PCR Monoscreen SARS-CoV-2, RNA, NAAT NEGATIVE 08/04/21 08/04/21 08/04/21 20:10 20:44 23:25 WBC RBC Hgb Hct MCV MCH MCHC RDW Std Deviation RDW Coeff of Janet Plt Count MPV Immature Gran % (Auto) Neut % (Auto) Lymph % (Auto) [place] % (Auto) Eos % (Auto) Baso % (Auto) Neut # (Auto) Lymph # (Auto) [place] # (Auto) Eos # (Auto) Baso # (Auto) Immature Gran # (Auto) Platelet Estimate Polychromasia Anisocytosis Target Cells Echinocytes PT 14.8 H INR 1.5 H APTT PTT Ratio ABG pH ABG pCO2 ABG pO2 ABG HCO3 ABG O2 Saturation ABG Base Excess Satya Test Barometric Pressure Oxygen Given Sodium Potassium Chloride Carbon Dioxide Anion Gap BUN Creatinine Est Cr Clr Drug Dosing Est GFR ( Amer) Est GFR (Non-Af Amer) BUN/Creatinine Ratio Glucose Lactate Calcium Phosphorus Magnesium Total Bilirubin AST ALT Alkaline Phosphatase Total Creatine Kinase C-Reactive Protein Total Protein Albumin Globulin Albumin/Globulin Ratio Specimen Hemolysis Urine Color Meeker Urine Appearance Turbid A Urine pH 5.5 Ur Specific Pound 1.016 Urine Protein 2+ H Urine Glucose (UA) Negative Urine Ketones Negative Urine Blood 3+ H Urine Nitrite Positive A Urine Bilirubin 3+ H Urine Urobilinogen Negative Ur Leukocyte Esterase 1+ H Urine WBC (Auto) 1-5 Urine RBC (Auto) 5-10 H U Hyaline Cast (Auto) 10-30 H U Epithel Cells (Auto) >30 H Urine Bacteria (Auto) 4+ H Granular Casts 10-20 H Urine Yeast Not Reportable Acetaminophen Screen Pending Acetaminophen LANCE Screen Anti-Smooth Muscle Ab CMV IgM Ab CMV IgG Ab/TORCH EBV Capsid Ag IgG Ab EBV Capsid Ag IgM Ab EBV EA Restrict+Diffuse EBV Nuclear Antigen Ab EBV Antibody Interp Hepatitis A IgM Ab Hep Bs Antigen Hep B Core IgM Ab Hepatitis C Antibody Herpes Virus Source HSV I IgG Ab HSV I IgM TORCH HSV II IgG HSV II IgM TORCH HSV I DNA PCR HSV II DNA PCR Monoscreen SARS-CoV-2, RNA, NAAT 08/04/21 08/04/21 08/04/21 23:25 23:25 23:25 WBC RBC Hgb Hct MCV MCH MCHC RDW Std Deviation RDW Coeff of Janet Plt Count MPV Immature Gran % (Auto) Neut % (Auto) Lymph % (Auto) [place] % (Auto) Eos % (Auto) Baso % (Auto) Neut # (Auto) Lymph # (Auto) [place] # (Auto) Eos # (Auto) Baso # (Auto) Immature Gran # (Auto) Platelet Estimate Polychromasia Anisocytosis Target Cells Echinocytes PT INR APTT PTT Ratio ABG pH ABG pCO2 ABG pO2 ABG HCO3 ABG O2 Saturation ABG Base Excess Satya Test Barometric Pressure Oxygen Given Sodium Potassium Chloride Carbon Dioxide Anion Gap BUN Creatinine Est Cr Clr Drug Dosing Est GFR ( Amer) Est GFR (Non-Af Amer) BUN/Creatinine Ratio Glucose Lactate 1.3 Calcium Phosphorus Magnesium Total Bilirubin AST ALT Alkaline Phosphatase Total Creatine Kinase C-Reactive Protein Total Protein Albumin Globulin Albumin/Globulin Ratio Specimen Hemolysis Urine Color Urine Appearance Urine pH Ur Specific Pound Urine Protein Urine Glucose (UA) Urine Ketones Urine Blood Urine Nitrite Urine Bilirubin Urine Urobilinogen Ur Leukocyte Esterase Urine WBC (Auto) Urine RBC (Auto) U Hyaline Cast (Auto) U Epithel Cells (Auto) Urine Bacteria (Auto) Granular Casts Urine Yeast Acetaminophen Screen Acetaminophen LANCE Screen Pending Anti-Smooth Muscle Ab Pending CMV IgM Ab Pending Pending CMV IgG Ab/TORCH Pending Pending EBV Capsid Ag IgG Ab Pending EBV Capsid Ag IgM Ab Pending EBV EA Restrict+Diffuse Pending EBV Nuclear Antigen Ab Pending EBV Antibody Interp Pending Hepatitis A IgM Ab Hep Bs Antigen Hep B Core IgM Ab Hepatitis C Antibody Herpes Virus Source Pending HSV I IgG Ab Pending HSV I IgM TORCH Pending HSV II IgG Pending HSV II IgM TORCH Pending HSV I DNA PCR Pending HSV II DNA PCR Pending Monoscreen SARS-CoV-2, RNA, NAAT 08/04/21 08/05/21 08/05/21 Unknown 00:11 00:11 WBC RBC Hgb Hct MCV MCH MCHC RDW Std Deviation RDW Coeff of Janet Plt Count MPV Immature Gran % (Auto) Neut % (Auto) Lymph % (Auto) [place] % (Auto) Eos % (Auto) Baso % (Auto) Neut # (Auto) Lymph # (Auto) [place] # (Auto) Eos # (Auto) Baso # (Auto) Immature Gran # (Auto) Platelet Estimate Polychromasia Anisocytosis Target Cells Echinocytes PT INR APTT PTT Ratio ABG pH 7.47 H ABG pCO2 26 L ABG pO2 103 H ABG HCO3 18 L ABG O2 Saturation 98.1 H ABG Base Excess -4.2 Satya Test POS Barometric Pressure 730.3 Oxygen Given ROOM AIR Sodium 134 L Potassium 3.4 L Chloride 102 Carbon Dioxide 19 L Anion Gap 12.0 H BUN 14 Creatinine 0.76 Est Cr Clr Drug Dosing 69.1 Est GFR ( Amer) 89.6 Est GFR (Non-Af Amer) 77.3 BUN/Creatinine Ratio 18.2 Glucose 107 H Lactate Calcium 7.7 L Phosphorus Magnesium Total Bilirubin 14.1 H AST 2273 H ALT 827 H Alkaline Phosphatase 392 H D Total Creatine Kinase C-Reactive Protein 4.42 H Total Protein 5.8 L Albumin 1.6 L Globulin 4.2 H Albumin/Globulin Ratio 0.4 L Specimen Hemolysis Urine Color Urine Appearance Urine pH Ur Specific Pound Urine Protein Urine Glucose (UA) Urine Ketones Urine Blood Urine Nitrite Urine Bilirubin Urine Urobilinogen Ur Leukocyte Esterase Urine WBC (Auto) Urine RBC (Auto) U Hyaline Cast (Auto) U Epithel Cells (Auto) Urine Bacteria (Auto) Granular Casts Urine Yeast Acetaminophen Screen Acetaminophen LANCE Screen Anti-Smooth Muscle Ab CMV IgM Ab CMV IgG Ab/TORCH EBV Capsid Ag IgG Ab EBV Capsid Ag IgM Ab EBV EA Restrict+Diffuse EBV Nuclear Antigen Ab EBV Antibody Interp Hepatitis A IgM Ab Hep Bs Antigen Hep B Core IgM Ab Hepatitis C Antibody Herpes Virus Source HSV I IgG Ab HSV I IgM TORCH HSV II IgG HSV II IgM TORCH HSV I DNA PCR HSV II DNA PCR Monoscreen SARS-CoV-2, RNA, NAAT 08/05/21 08/05/21 08/05/21 01:25 06:03 06:03 WBC 6.72 RBC 3.67 L Hgb 11.1 L Hct 33.0 L MCV 89.9 MCH 30.2 MCHC 33.6 RDW Std Deviation 65.9 H RDW Coeff of Janet 20.6 H Plt Count 95 L MPV 12.0 H Immature Gran % (Auto) 0.1 Neut % (Auto) 50.2 Lymph % (Auto) 29.9 [place] % (Auto) 18.8 Eos % (Auto) 0.9 Baso % (Auto) 0.1 Neut # (Auto) 3.37 Lymph # (Auto) 2.01 [place] # (Auto) 1.26 H Eos # (Auto) 0.06 Baso # (Auto) 0.01 Immature Gran # (Auto) 0.01 Platelet Estimate Decreased L Polychromasia 1+ Anisocytosis Target Cells 1+ Echinocytes 1+ PT 16.0 H INR 1.6 H APTT PTT Ratio ABG pH ABG pCO2 ABG pO2 ABG HCO3 ABG O2 Saturation ABG Base Excess Satya Test Barometric Pressure Oxygen Given Sodium Potassium Chloride Carbon Dioxide Anion Gap BUN Creatinine Est Cr Clr Drug Dosing Est GFR ( Amer) Est GFR (Non-Af Amer) BUN/Creatinine Ratio Glucose Lactate Calcium Phosphorus Magnesium Total Bilirubin AST ALT Alkaline Phosphatase Total Creatine Kinase C-Reactive Protein Total Protein Albumin Globulin Albumin/Globulin Ratio Specimen Hemolysis Urine Color Dark Yellow Urine Appearance Clear Urine pH 6.5 Ur Specific Pound 1.038 H Urine Protein 2+ H Urine Glucose (UA) Negative Urine Ketones 1+ H Urine Blood 3+ H Urine Nitrite Negative Urine Bilirubin 2+ H Urine Urobilinogen Negative Ur Leukocyte Esterase 1+ H Urine WBC (Auto) 10-30 H Urine RBC (Auto) 5-10 H U Hyaline Cast (Auto) 1-5 U Epithel Cells (Auto) 20-30 H Urine Bacteria (Auto) 4+ H Granular Casts Urine Yeast Not Reportable Acetaminophen Screen Acetaminophen LANCE Screen Anti-Smooth Muscle Ab CMV IgM Ab CMV IgG Ab/TORCH EBV Capsid Ag IgG Ab EBV Capsid Ag IgM Ab EBV EA Restrict+Diffuse EBV Nuclear Antigen Ab EBV Antibody Interp Hepatitis A IgM Ab Hep Bs Antigen Hep B Core IgM Ab Hepatitis C Antibody Herpes Virus Source HSV I IgG Ab HSV I IgM TORCH HSV II IgG HSV II IgM TORCH HSV I DNA PCR HSV II DNA PCR Monoscreen SARS-CoV-2, RNA, NAAT 08/05/21 06:03 WBC RBC Hgb Hct MCV MCH MCHC RDW Std Deviation RDW Coeff of Janet Plt Count MPV Immature Gran % (Auto) Neut % (Auto) Lymph % (Auto) [place] % (Auto) Eos % (Auto) Baso % (Auto) Neut # (Auto) Lymph # (Auto) [place] # (Auto) Eos # (Auto) Baso # (Auto) Immature Gran # (Auto) Platelet Estimate Polychromasia Anisocytosis Target Cells Echinocytes PT INR APTT PTT Ratio ABG pH ABG pCO2 ABG pO2 ABG HCO3 ABG O2 Saturation ABG Base Excess Satya Test Barometric Pressure Oxygen Given Sodium 133 L Potassium 3.0 L Chloride 105 Carbon Dioxide 21 Anion Gap 7.0 BUN 13 Creatinine 0.72 Est Cr Clr Drug Dosing 74.8 Est GFR ( Amer) 95.6 Est GFR (Non-Af Amer) 82.5 BUN/Creatinine Ratio 18.6 Glucose 101 H Lactate Calcium 7.9 L Phosphorus Magnesium Total Bilirubin 13.3 H AST 2296 H ALT 798 H Alkaline Phosphatase 405 H Total Creatine Kinase 16784 H C-Reactive Protein Total Protein 5.5 L Albumin 1.6 L Globulin 3.9 Albumin/Globulin Ratio 0.4 L Specimen Hemolysis Urine Color Urine Appearance Urine pH Ur Specific Pound Urine Protein Urine Glucose (UA) Urine Ketones Urine Blood Urine Nitrite Urine Bilirubin Urine Urobilinogen Ur Leukocyte Esterase Urine WBC (Auto) Urine RBC (Auto) U Hyaline Cast (Auto) U Epithel Cells (Auto) Urine Bacteria (Auto) Granular Casts Urine Yeast Acetaminophen Screen Acetaminophen LANCE Screen Anti-Smooth Muscle Ab CMV IgM Ab CMV IgG Ab/TORCH EBV Capsid Ag IgG Ab EBV Capsid Ag IgM Ab EBV EA Restrict+Diffuse EBV Nuclear Antigen Ab EBV Antibody Interp Hepatitis A IgM Ab Hep Bs Antigen Hep B Core IgM Ab Hepatitis C Antibody Herpes Virus Source HSV I IgG Ab HSV I IgM TORCH HSV II IgG HSV II IgM TORCH HSV I DNA PCR HSV II DNA PCR Monoscreen SARS-CoV-2, RNA, NAAT PG Care Time/CCT Total # of Minutes Spent Total Time Spent with Patient: Total time spent is greater than 50% in coordination of care (as documented) at patient's floor/unit and/or counseling patient: Coding Level of Care Code 62980 Subseq Hosp Care Lvl 2 Diagnoses Acute liver failure K72.00 Hypertension I10 High cholesterol E78.00 Acute hypokalemia E87.6 Pancreatitis K85.90 Rhabdomyolysis M62.82 Time Spent (min) 35
--- NOTE | 2021-08-05 15:23 | Gastrointestinal Consultation ---
Date of Consultation August 05, 2021 Assessment & Plan (1) Acute liver failure: Unknown etiology at present (Differential includes: acute viral hepatitis, autoimmune hepatitis, drug induced, Ischemic) She did complete the NAC protocol as advised Acute liver panel pending. I would recommend continuing supportive care at present. The overwhelming majority of patients who present with KEV will resolve with supportive care, and often times a definitive diagnosis is elusive I would recommend continuing supportive care and advancing her diet as tolerated Will check stat INR now, as it has not been checked since early this AM History of Present Illness Reason for Consultation: Acute Liver Injury Attending Physician: Elias Christy MD History of Present Illness Nasrin Ramirez is a 76 yo CF who presented to the ER with jaundice. She reported recent upper respiratory symptoms over the past few weeks, however, attributed this to her history of chronic bronchitis. She did note cough and fevers, and performed a home test for Covid 19 2 weeks ago which was positive, however PCR testing 7 days ago was negative. She also reported worsening fatigue, and admits that 4 days prior to admission she felt lightheaded, but denies syncope. She states that she did not notice jaundice, however, when a friend came over to visit yesterday, she noted the significant yellowing of her skin and eyes. She denies ever having a history of heavy drinking, and denies any use of OTC tylenol or pain medications that contain tylenol. Upon arrival to the ER, she was found to have significantly elevated total bilirubin of 16.2 and an INR of 1.4. Her Transaminases were also profoundly elevated. She did undergo a RUQ US, which was negative for cholelithiasis, CBD dilation or pancreatic head mass. I discussed the case in detail with Dr. Lopez and Dr. Cruz, and advised NAC protocol, which she did start last evening. At the time I saw the patient, she was feeling slightly better, her INR did increase to 1.6 overnight, however, her AST, ALT, Alk Phos, and Tbili did slightly improve. She denies any abdominal pain, fevers, chills, nausea, vomiting, hematemesis, melena, hematochezia, or pruritus. She does complain of dark urine. Nursing reports no confusion. She underwent a CT abd/pelvis with contrast, and was noted to have cirrhotic appearing morphology of the liver, but no other findings. Allergies Allergy/AdvReac Type Severity Reaction Status Date / Time No Known Allergies Allergy Unknown Verified 08/04/21 16:27 Home Medications Medication Instructions Recorded Confirmed Type amlodipine 5 mg tablet 5 mg PO DAILY 08/04/21 08/04/21 History atorvastatin 80 mg tablet 80 mg PO DAILY 08/04/21 08/04/21 History ezetimibe 10 mg tablet 10 mg PO DAILY 08/04/21 08/04/21 History Patient History Medical History High cholesterol Hypertension Social History Smoking Status: Unknown if ever smoked Hx Alcohol Use: Yes Alcohol type: hard liquor Hx Substance Use: No Preferred Language: Macedonian Communication Ability: Effective Hand Miter Operator Required: No Current Living Situation: Alone Feels Safe at Home: Yes Assistive Devices: Glasses Review of Systems Constitutional: as per Subjective / HPI Eyes: as per Subjective / HPI Ear, Nose, Mouth, Throat: as per Subjective / HPI Respiratory: as per Subjective / HPI Cardiovascular: as per Subjective / HPI Gastrointestinal: as per Subjective / HPI Musculoskeletal: as per Subjective / HPI Integumentary: as per Subjective / HPI Neurologic: as per Subjective / HPI Psychiatric: as per Subjective / HPI Endocrine: as per Subjective / HPI Hematologic / Lymphatic: as per Subjective / HPI Allergy / Immunological: as per Subjective / HPI Physical Exam Constitutional: + ill appearing (chronic); no acute distress and no altered mental status Eyes: sclerae not anicteric ENMT: external ear and nose normal, oropharynx normal Neck: trachea midline, no thyromegaly Respiratory: normal respiratory effort, lungs clear to auscultation Cardiovascular: RRR, no murmur, no edema Gastrointestinal (Abdomen): normal bowel sounds, soft, nontender, no hepatosplenomegaly Skin: + jaundice Psychiatric: A+Ox3, euthymic affect Results & Data ([facility]) Vital Signs (Past 12 Hours) Vital Signs Pulse Resp BP Pulse Ox 08/05/21 10:38 87 20 120/61 95 08/05/21 05:04 90 18 122/71 95 PG Care Time/CCT Total # of Minutes Spent Total Time Spent with Patient: Total time spent is greater than 50% in coordination of care (as documented) at patient's floor/unit and/or counseling patient: Coding Level of Care Code 31213 Initial Inpt Care Lvl 3 Diagnoses Acute liver failure K72.00
[2021-08-05] MEDS: SODIUM CHLORIDE 0.9% 1000ML 1,000 ML IV SCH (15:35)
[2021-08-05 16:56] LABS: INR 1.5 (0.9-1.1); Prothrombin Time 14.9 Seconds (9.0-12.0)
[2021-08-06] MEDS: SODIUM CHLORIDE 0.9% 1000ML 1,000 ML IV SCH (00:18)
[2021-08-06 04:45] LABS: Hepatitis A Antibody IgM NON-REACTIVE (NON-REACTIVE); Hepatitis B Core Antibody IgM NON-REACTIVE (NON-REACTIVE)
[2021-08-06 05:33] LABS: Hematocrit (blood only) 32.1 % (37-47); Mean Corpuscular Hgb Conc 34.3 g/dL (32-36); Mean Corpuscular Volume 90.4 fL (80-100); Mean Platelet Volume 11.6 fL (7.4-10.4); Platelet Count 109 K/uL (130-400); RDW Coefficient of Variation 20.7 % (11.5-14.5); RDW Standard Deviation 68.6 fL (36.4-46.3); Red Blood Count 3.55 M/uL (4.2-5.4); White Blood Count 7.49 K/uL (4.8-10.8)
[2021-08-06 06:19] LABS: Alanine Aminotransferase 747 (12-78); Albumin Level 1.5 gm/dl (3.4-5.0); Alkaline Phosphatase 388 U/L (45-117); Aspartate Aminotransferase 1962 U/L (15-37); Bilirubin,Total 12.8 mg/dl (0.2-1); Blood Urea Nitrogen 13 mg/dl (7-18); Carbon Dioxide 21 mmol/L (21-32); Chloride 108 mmol/L (98-107); Creatinine Clr Calc Pharmacy 65.6 ml/min; Est GFR (African American) 81.7 ml/min; Est GFR (Non-African American) 70.5 ml/min; Glucose 79 mg/dl (70-99); Potassium 2.9 mmol/L (3.5-5.1); Sodium 136 mmol/L (136-145); Total Protein 5.1 gm/dl (6.4-8.2)
[2021-08-06] MEDS ORDERED: POTASSIUM CHLORIDE CRTAB 20 MEQ TABCR PO STA (07:57)
--- NOTE | 2021-08-06 10:57 | Hospitalist Progress Note ---
Date of Service August 06, 2021 Assessment & Plan (1) Acute liver failure: Plan: Etiology is uncertain, however liver enzymes trending down Hepatitis viral panel, EBV, CMV, HSV, LANCE, anti-smooth muscle antibodies, all requested, result pending CT abdomen shows evidence of cirrhosis, patient denies significant alcohol use GI on consult, appreciate recs (2) Hypertension: Plan: Hold amlodipine (3) Pancreatitis: Plan: elevated lipase could be due to gall stone pancreatitis US did not show any evidence of gall stones continue hydration (4) Rhabdomyolysis: Plan: Elevated CPK, source likely from the liver itself will monitor will obtain alpha feto proteins (5) High cholesterol: Plan: Hold atorvastatin and ezetimibe (6) Acute hypokalemia: Plan: Replace Plan: VTE prophylaxis - deferred due to increased bleeding risk in liver failure Diet - advance as tolerated Disposition - admit to PCU pending clinical improvement Admission and Anticipated Discharge Date Admission Date: August 04, 2021 Subjective patient seen and examined, denies abdominal pain, nausea or vomiting, tolerating diet Review of Systems Review of Systems: All systems reviewed are negative, apart from the ones contained in the history. Physical Exam Physical Exam: The patient is awake, alert and oriented 3, well developed and well nourished, normocephalic and atraumatic, lying in bed and in no acute distress. HEENT--PERRL, EOMI, mucous membranes and oropharynx mildly dry Neck--supple. No JVD. No bruits. Thyroid normal, trachea midline, no adenopathy. Heart--normal S1 and S2. No murmurs, rubs or gallops. Lungs--clear bilaterally, no respiratory distress, no accessory muscle use. Abdomen--normal bowel sounds and soft. Mild epigastric and left sided abdominal pain Extremities--no cyanosis or clubbing. No edema. Dermatologic--normal skin turgor, normal color, no abnormal lymph nodes, no rash. Neurologic--cranial nerves II through XII grossly intact. Rheumatologic--normal range of motion. Psychiatric--normal affect. Results & Data Results & Data ([facility]) Vital Signs (Past 12 Hours) Vital Signs Temp Pulse Pulse Resp BP BP Pulse Ox 08/06/21 07:35 97.9 F 94 H 20 116/63 97 08/06/21 03:42 98.1 F 87 16 116/62 94 08/06/21 00:00 97.7 F 102 H 110 H 18 147/84 H 95 08/05/21 23:00 103 H 19 147/79 H 96 PG Care Time/CCT Total # of Minutes Spent Total Time Spent with Patient: Total time spent is greater than 50% in coordination of care (as documented) at patient's floor/unit and/or counseling patient: Coding Level of Care Code 71939 Subseq Hosp Care Lvl 2 Diagnoses Acute liver failure K72.00 Hypertension I10 Pancreatitis K85.90 Rhabdomyolysis M62.82 High cholesterol E78.00 Acute hypokalemia E87.6 Time Spent (min) 35
--- NOTE | 2021-08-06 16:30 | Gastroenterology Progress Note ---
Date of Service August 06, 2021 Assessment & Plan (1) Acute liver failure: Plan: Numbers from liver panel have improved Continue supportive care Admission and Anticipated Discharge Date Admission Date: August 04, 2021 Subjective Feeling well today. Tolerating PO intake. She denies fevers, chills, nausea, vomiting, diarrhea, hematemesis, melena or hematochezia. Review of Systems Constitutional: as per Subjective / HPI Eyes: as per Subjective / HPI Ear, Nose, Mouth, Throat: as per Subjective / HPI Respiratory: as per Subjective / HPI Cardiovascular: as per Subjective / HPI Gastrointestinal: as per Subjective / HPI Musculoskeletal: as per Subjective / HPI Integumentary: as per Subjective / HPI Neurologic: as per Subjective / HPI Psychiatric: as per Subjective / HPI Endocrine: as per Subjective / HPI Hematologic / Lymphatic: as per Subjective / HPI Allergy / Immunological: as per Subjective / HPI Physical Exam Constitutional: + ill appearing; no acute distress Eyes: sclerae not anicteric Neck: normal visual inspection Respiratory: normal respiratory effort, lungs clear to auscultation Gastrointestinal (Abdomen): normal bowel sounds, soft, nontender, no hepatosplenomegaly Psychiatric: A+Ox3, euthymic affect Results & Data Results & Data ([facility]) Vital Signs (Past 12 Hours) Vital Signs Temp Pulse Pulse Pulse Resp BP Pulse Ox 08/06/21 12:38 36.8 C 96 H 20 126/74 95 08/06/21 11:53 99 H 08/06/21 07:35 36.6 C 94 H 20 116/63 97 PG Care Time/CCT Total # of Minutes Spent Total Time Spent with Patient: Total time spent is greater than 50% in coordination of care (as documented) at patient's floor/unit and/or counseling patient: Coding Level of Care Code 95525 Subseq Hosp Care Lvl 3 Diagnoses Acute liver failure K72.00
--- NOTE | 2021-08-07 09:45 | Gastroenterology Progress Note ---
Date of Service August 07, 2021 Assessment & Plan (1) Acute liver failure: Plan: Suspect viral vs autoimmune -Await repeat liver panel from today -Continue to follow INR -ASMA, LANCE, AMA pending -Will need outpatient follow-up for cirrhosis management Admission and Anticipated Discharge Date Admission Date: August 04, 2021 Supervising Physician Co-Signing Physician Notes Agree with LEYDA Duarte as above Abd: Soft, NT, ND, +BS Continue current therapy and supportive care Will follow clinical course and make further recommendations as indicated. Subjective Patient is a 76 yo female with acute liver failure. Patient remains jaundiced. She denies abdominal pain. She reports some shortness of breath as she was just out of bed immediately prior to my arrival. She notes that the survey cad technician tried to obtain blood this morning, unfortunately they could not get it. She is awaiting IV team to come so that repeat labs can be obtained. T bili from yesterday was 12.8. She denies new problems otherwise. AMA, JENNIA, LANCE pending. INR 1.5 on 08/06/21. Review of Systems Constitutional: + fatigue; no fever and no chills Respiratory: no cough Cardiovascular: no chest pain Gastrointestinal: no abdominal pain and no blood in stools Integumentary: + yellowing of the skin Physical Exam Constitutional: WD/WN, vitals as above Respiratory: normal respiratory effort, lungs clear to auscultation Cardiovascular: Rate/Rhythm: + tachycardic Gastrointestinal (Abdomen): Inspection/Auscultation: abdomen normal to inspection and normal bowel sounds Percussion/Palpation: abdomen soft; abdomen nontender Skin: + jaundice Results & Data Results & Data ([facility]) Vital Signs (Past 12 Hours) Vital Signs Temp Pulse Pulse Resp BP BP Pulse Ox 08/07/21 07:45 95 H 08/07/21 07:20 37.2 C 101 H 22 125/54 L 96 08/07/21 04:50 37 C 99 H 16 133/63 93 08/06/21 23:00 36.8 C 96 H 104 H 17 117/66 94 PG Care Time/CCT Total # of Minutes Spent Total Time Spent with Patient: Total time spent is greater than 50% in coordination of care (as documented) at patient's floor/unit and/or counseling patient: Coding Level of Care Code 04354 Subseq Hosp Care Lvl 3 Diagnoses Acute liver failure K72.00
[2021-08-07 09:54] LABS: Basophils # (auto) 0.04 K/uL (0-0.2); Basophils % (auto) 0.5 %; Eosinophils # (auto) 0.13 K/uL (0-0.5); Eosinophils % (auto) 1.6 %; Hematocrit (blood only) 35.9 % (37-47); Immature Granulocytes # (auto) 0.03 K/uL (0.00-0.02); Immature Granulocytes % (auto) 0.4 %; Lymphocytes # (auto) 2.45 K/uL (1.2-3.4); Lymphocytes % (auto) 29.7 %; Mean Corpuscular Hemoglobin 31.4 pg (25-34); Mean Corpuscular Hgb Conc 33.4 g/dL (32-36); Mean Platelet Volume 11.7 fL (7.4-10.4); Monocytes # (auto) 0.77 K/uL (0.11-0.59); Monocytes % (auto) 9.3 %; Neutrophils # (auto) 4.83 K/uL (1.4-6.5); Neutrophils % (auto) 58.5 %; Platelet Count 139 K/uL (130-400); RDW Coefficient of Variation 21.1 % (11.5-14.5); RDW Standard Deviation 70.9 fL (36.4-46.3); Red Blood Count 3.82 M/uL (4.2-5.4); White Blood Count 8.25 K/uL (4.8-10.8)
[2021-08-07 10:04] LABS: Anisocytosis Present
[2021-08-07 10:32] LABS: Albumin Globulin Ratio 0.4 (0.9-2); Albumin Level 1.6 gm/dl (3.4-5.0); BUN Creatinine Ratio 15.1 (10-20); Bilirubin,Total 15.1 mg/dl (0.2-1); Creatinine Clr Calc Pharmacy 53.9 ml/min; Est GFR (African American) 66.7 ml/min; Est GFR (Non-African American) 57.5 ml/min; Globulin 4.1 gm/dl (2.5-4.0); Potassium 3.3 mmol/L (3.5-5.1); Total Protein 5.7 gm/dl (6.4-8.2)
[2021-08-07 10:45] LABS: INR 1.5 (0.9-1.1); Prothrombin Time 14.8 Seconds (9.0-12.0)
--- NOTE | 2021-08-07 13:20 | Medical Student Progress Note ---
Date of Service August 07, 2021 Assessment & Plan (1) Acute liver failure: Plan: 76-year-old female with past medical history high cholesterol and hypertension admitted to the hospital for acute liver failure. -Viral workup: Hep A - non-reactive Hep B Surface Antigen - negative Hep B Core IgM - nonreactive Hep C Antibody - Negative EBV, CMV, HSV still pending -Autoimmune workup: ASMA, LANCE, AMA still pending -Liver U/S showed cirrhosis with biliary obstruction -AST increased to 2300 from 1900 -ALT increased from 901 to 747 -Bilirubin increased from 12.8 t0 15 -INR stable at 1.5 -platelet count normal -Albumin 1.6 -Discuss with GI - -Patient's labs may still be peaking, continue to monitor (2) Rhabdomyolysis: Plan: -CK elevate, source likely from the liver itself -Resume IV fluids since CPK 63906 - Recheck CPK in AM (3) UTI (urinary tract infection): Plan: -urine culture positive for Klebsiella -start Ceftriaxone 1 g daily for 3 days (4) Acute hypokalemia: Plan: -Improving, increased from 2.9 to 3.3 -Continue to replace through IV (5) Hypertension: Plan: -Holding amlodipine. Blood pressure is stable. (6) High cholesterol: Plan: -Hold atorvastatin and ezetimibe due acute liver failure and elevated CPK. Plan: VTE prophylaxis - deferred due to increased bleeding risk in liver failure Diet - advance as tolerated Disposition - admit to PCU pending clinical improvement Admission and Anticipated Discharge Date Admission Date: August 04, 2021 Supervising Attestation Medical Student Supervision Note: I was personally present during medical student patient encounter and independently interviewed and examined the patient and verified the keane history and physical, reviewed labs and image studies, discussed the case with Laura Fajardo and agree with the findings and care plan. Await lab results for work up. Follow LFT Continue IVF Subjective No events overnight. Eating and drinking well today. She continues to be fatigued and weak, notably in the legs and thighs. Still jaundiced. No abdominal pain. No nausea or vomiting. No itching. She notes darkened tea colored urine but no urinary symptoms (increased frequency, urgency, or dysuria) Review of Systems Review of Systems: All systems reviewed & are unremarkable except as noted in Subjective Physical Exam Constitutional: WD/WN, vitals as above Eyes: Scleral icterus Cardiovascular: Rate/Rhythm: regular rate and regular rhythm Heart Sounds: normal S1 and normal S2 Extremities: + edema (non-pitting, 1+) Gastrointestinal (Abdomen): normal bowel sounds, soft, nontender, no hepatosplenomegaly Skin: Jaundiced Psychiatric: A+Ox3, euthymic affect Results & Data ([place]) Vital Signs (Past 12 Hours) Vital Signs Temp Pulse Pulse Resp BP Pulse Ox 08/07/21 10:55 36.9 C 90 24 120/72 99 08/07/21 07:45 95 H 08/07/21 07:20 37.2 C 101 H 22 125/54 L 96 08/07/21 04:50 37 C 99 H 16 133/63 93 Laboratory Results Abnormal lab results 08/07/21 08/07/21 08/07/21 Range/Units 09:40 09:40 10:15 RBC 3.82 L (4.2-5.4) M/uL Hct 35.9 L (37-47) % RDW Std Deviation 70.9 H (36.4-46.3) fL RDW Coeff of Janet 21.1 H (11.5-14.5) % MPV 11.7 H (7.4-10.4) fL [place] # (Auto) 0.77 H (0.11-0.59) K/uL Immature Gran # (Auto) 0.03 H (0.00-0.02) K/uL PT 14.8 H (9.0-12.0) Seconds INR 1.5 H (0.9-1.1) Sodium 134 L (136-145) mmol/L Potassium 3.3 L (3.5-5.1) mmol/L Carbon Dioxide 19 L (21-32) mmol/L Glucose 146 H (70-99) mg/dl Total Bilirubin 15.1 H (0.2-1) mg/dl AST 2343 H (15-37) U/L ALT 901 H (12-78) Alkaline Phosphatase 466 H D (45-117) U/L Total Protein 5.7 L (6.4-8.2) gm/dl Albumin 1.6 L (3.4-5.0) gm/dl Globulin 4.1 H (2.5-4.0) gm/dl Albumin/Globulin Ratio 0.4 L (0.9-2)
[2021-08-07] MEDS ORDERED: POTASSIUM CHLORIDE CRTAB 20 MEQ TABCR PO STA (14:07)
[2021-08-07] MEDS: LACTATED RINGER'S 1,000 ML IV SCH ×2 (14:34→19:53)
[2021-08-07] MEDS: cefTRIAXone SODIUM 2,000 MG in DEXTROSE 5% 50 ML IV SCH (20:00)
[2021-08-08 04:45] LABS: Basophils # (auto) 0.03 K/uL (0-0.2); Basophils % (auto) 0.3 %; Eosinophils # (auto) 0.21 K/uL (0-0.5); Eosinophils % (auto) 2.2 %; Hematocrit (blood only) 31.8 % (37-47); Immature Granulocytes # (auto) 0.02 K/uL (0.00-0.02); Immature Granulocytes % (auto) 0.2 %; Lymphocytes # (auto) 2.66 K/uL (1.2-3.4); Lymphocytes % (auto) 27.4 %; Mean Corpuscular Hemoglobin 31.6 pg (25-34); Mean Corpuscular Hgb Conc 34.6 g/dL (32-36); Mean Corpuscular Volume 91.4 fL (80-100); Mean Platelet Volume 11.2 fL (7.4-10.4); Monocytes # (auto) 1.55 K/uL (0.11-0.59); Monocytes % (auto) 15.9 %; Neutrophils # (auto) 5.25 K/uL (1.4-6.5); Platelet Count 114 K/uL (130-400); RDW Coefficient of Variation 21.1 % (11.5-14.5); RDW Standard Deviation 68.6 fL (36.4-46.3); Red Blood Count 3.48 M/uL (4.2-5.4); White Blood Count 9.72 K/uL (4.8-10.8)
[2021-08-08 04:54] LABS: INR 1.5 (0.9-1.1); Prothrombin Time 15.1 Seconds (9.0-12.0)
[2021-08-08 05:31] LABS: Anisocytosis Present; Echinocytes 1+; Rouleaux 1+
[2021-08-08 05:53] LABS: Albumin Globulin Ratio 0.4 (0.9-2); Albumin Level 1.4 gm/dl (3.4-5.0); Bilirubin,Total 13.1 mg/dl (0.2-1); Calcium 8.6 mg/dl (8.5-10.1); Creatinine Clr Calc Pharmacy 73.7 ml/min; Est GFR (Non-African American) 81.1 ml/min; Globulin 3.5 gm/dl (2.5-4.0); Potassium 3.9 mmol/L (3.5-5.1); Total Protein 4.9 gm/dl (6.4-8.2)
--- NOTE | 2021-08-08 07:56 | Medical Student Progress Note ---
Date of Service August 08, 2021 Assessment & Plan (1) Acute liver failure: Plan: 76-year-old female with past medical history high cholesterol and hypertension admitted to the hospital for acute liver failure. -Completed NAC protocol -No concerning alcohol use. Holding statin and ezetimibe. No concern for other hepatotoxic medications/supplements. -Liver U/S showed cirrhosis without biliary obstruction -Viral workup: Hepatitis panel negative EBV: Monoscreen negative, EBV antibodies pending CMV, HSV still pending -Autoimmune workup ASMA, LANCE, AMA still pending -Considering TILLEY, viral cause following results of workup -AST decreased to 1950 from 2300 -ALT decreased to 802 from 901 -Bilirubin decreased to 13.1 from 15.1 -INR continues to be stable at 1.5 -Platelet count decreased to 114 from 139 -Albumin decreased to 1.4 from 1.6 - GI consulted Awaiting pending labs Continuing to monitor Appreciate recommendations -MELD score - 19.6% - 3 month mortality unchanged since arrival continue to calculate with labs -Child Donnelly Score - 9, Child Class B continue to evaluate with labs (2) Rhabdomyolysis: Plan: Elevated CPK -Source likely from the liver -CPK increased today to 20,400 from 13,000 -will repeat tomorrow -continue with continuous IV fluids today -Continue monitoring for metabolic abnormalities - potassium corrected and normal calcium -Will continue to monitor kidney function - BUN and Cr stable (3) UTI (urinary tract infection): Plan: Simple Cystitis -Urine culture positive for Klebsiella -Continue Ceftriaxone 1 g daily for 3 days Started 08/07 (4) Acute hypokalemia: Plan: -Improved to 3.9 -Discontinued potassium replacement (5) Hypertension: Plan: -Holding amlodipine. Blood pressure is stable. (6) High cholesterol: Plan: -Hold atorvastatin and ezetimibe due acute liver failure and elevated CPK. Plan: VTE prophylaxis - Heparin [id number] Diet - regular Disposition - admit to PCU pending clinical improvement Admission and Anticipated Discharge Date Admission Date: August 04, 2021 Supervising Attestation Medical Student Supervision Note: I was personally present during medical student patient encounter and independently interviewed and examined the patient and verified the keane history and physical, reviewed labs and image studies, discussed the case with Laura Fajardo and agree with the findings and care plan. Improving LFT. continue current management - monitoring labs. IVF IV rocephin for UTI Subjective Today Emiliana is doing well. Continues to be fatigued and weak, notably in the lower extremities. Short of breath on ambulation. Continues to be jaundiced. No abdominal pain, N/V, fever or chills. Feels improved with the addition of the antibiotic for cystitis, no difficulty voiding. Eating and drinking well. No concerns or questions. Review of Systems Review of Systems: All systems reviewed & are unremarkable except as noted in Subjective Physical Exam Constitutional: Well-developed well-nourished. No acute distress. Resting comfortably in bed. Respiratory: normal respiratory effort, lungs clear to auscultation Cardiovascular: RRR, no murmur, no edema (+ edema (non-pitting, 1+)) Gastrointestinal (Abdomen): Normal bowel sounds. Abdomen is soft and nontender. No fluid wave. Skin: Jaundice Psychiatric: A+Ox3, euthymic affect Results & Data ([facility]) Vital Signs (Past 12 Hours) Vital Signs Temp Pulse Resp BP BP Pulse Ox 08/08/21 04:29 37 C 102 H 20 135/66 96 08/08/21 00:00 36.8 C 106 H 18 125/60 94 08/07/21 20:00 116 H 20 121/70 96 Laboratory Results Abnormal lab results 08/04/21 08/07/21 08/07/21 Range/Units 20:10 09:40 09:40 RBC 3.82 L (4.2-5.4) M/uL Hgb (12.0-16.0) g/dL Hct 35.9 L (37-47) % RDW Std Deviation 70.9 H (36.4-46.3) fL RDW Coeff of Janet 21.1 H (11.5-14.5) % Plt Count (130-400) K/uL MPV 11.7 H (7.4-10.4) fL [place] # (Auto) 0.77 H (0.11-0.59) K/uL Immature Gran # (Auto) 0.03 H (0.00-0.02) K/uL PT (9.0-12.0) Seconds INR (0.9-1.1) Sodium 134 L (136-145) mmol/L Potassium 3.3 L (3.5-5.1) mmol/L Carbon Dioxide 19 L (21-32) mmol/L BUN/Creatinine Ratio (10-20) Glucose 146 H (70-99) mg/dl Total Bilirubin 15.1 H (0.2-1) mg/dl AST 2343 H (15-37) U/L ALT 901 H (12-78) Alkaline Phosphatase 466 H D (45-117) U/L Total Protein 5.7 L (6.4-8.2) gm/dl Albumin 1.6 L (3.4-5.0) gm/dl Globulin 4.1 H (2.5-4.0) gm/dl Albumin/Globulin Ratio 0.4 L (0.9-2) Acetaminophen Screen <10 L (10-20) mg/L 08/07/21 08/08/21 08/08/21 Range/Units 10:15 04:23 04:23 RBC 3.48 L (4.2-5.4) M/uL Hgb 11.0 L (12.0-16.0) g/dL Hct 31.8 L (37-47) % RDW Std Deviation 68.6 H (36.4-46.3) fL RDW Coeff of Janet 21.1 H (11.5-14.5) % Plt Count 114 L (130-400) K/uL MPV 11.2 H (7.4-10.4) fL [place] # (Auto) 1.55 H (0.11-0.59) K/uL Immature Gran # (Auto) (0.00-0.02) K/uL PT 14.8 H 15.1 H (9.0-12.0) Seconds INR 1.5 H 1.5 H (0.9-1.1) Sodium (136-145) mmol/L Potassium (3.5-5.1) mmol/L Carbon Dioxide (21-32) mmol/L BUN/Creatinine Ratio (10-20) Glucose (70-99) mg/dl Total Bilirubin (0.2-1) mg/dl AST (15-37) U/L ALT (12-78) Alkaline Phosphatase (45-117) U/L Total Protein (6.4-8.2) gm/dl Albumin (3.4-5.0) gm/dl Globulin (2.5-4.0) gm/dl Albumin/Globulin Ratio (0.9-2) Acetaminophen Screen (10-20) mg/L 08/08/21 Range/Units 04:23 RBC (4.2-5.4) M/uL Hgb (12.0-16.0) g/dL Hct (37-47) % RDW Std Deviation (36.4-46.3) fL RDW Coeff of Janet (11.5-14.5) % Plt Count (130-400) K/uL MPV (7.4-10.4) fL [place] # (Auto) (0.11-0.59) K/uL Immature Gran # (Auto) (0.00-0.02) K/uL PT (9.0-12.0) Seconds INR (0.9-1.1) Sodium 134 L (136-145) mmol/L Potassium (3.5-5.1) mmol/L Carbon Dioxide (21-32) mmol/L BUN/Creatinine Ratio 21.0 H (10-20) Glucose (70-99) mg/dl Total Bilirubin 13.1 H (0.2-1) mg/dl AST 1946 H (15-37) U/L ALT 802 H (12-78) Alkaline Phosphatase 416 H D (45-117) U/L Total Protein 4.9 L (6.4-8.2) gm/dl Albumin 1.4 L (3.4-5.0) gm/dl Globulin (2.5-4.0) gm/dl Albumin/Globulin Ratio 0.4 L (0.9-2) Acetaminophen Screen (10-20) mg/L
[2021-08-08] MEDS: LACTATED RINGER'S 1,000 ML IV SCH ×3 (10:17→23:15)
--- NOTE | 2021-08-08 10:28 | Gastroenterology Progress Note ---
Date of Service August 08, 2021 Assessment & Plan (1) Acute liver failure: Plan: -Continue to trend LFTs & INR -Supportive care -Await remainder of autoimmune & viral studies -Will continue to follow for clinical changes and intervene as appropriate Admission and Anticipated Discharge Date Admission Date: August 04, 2021 Supervising Physician Co-Signing Physician Notes Agree with LEYDA Duarte as above Abd: Soft, NT, ND, +BS Continue current therapy and supportive care Will continue to follow clinical course and make further recommendations as needed. Subjective Patient is a 76 yo female with acute liver failure. Her bilirubin has decreased today to 13.1. AST 1946, ALT 802, Alk phos 416. Her INR has remained steady at 1.5. She continues to be jaundice, but notes that she sees improvement in her lower extremity edema. She denies nausea, abdominal pain, fever, or chills. She denies other complaints at the present time. Autoimmune labs, HSV & CMV pending. Review of Systems Constitutional: no fever and no chills Respiratory: no cough and no dyspnea Cardiovascular: no chest pain Gastrointestinal: no abdominal pain Integumentary: + yellowing of the skin Physical Exam Constitutional: well developed Respiratory: normal respiratory effort, lungs clear to auscultation Cardiovascular: Rate/Rhythm: + tachycardic Extremities: + edema Gastrointestinal (Abdomen): Inspection/Auscultation: abdomen normal to inspe ction Psychiatric: Orientation: alert and oriented x 3 Results & Data Results & Data ([facility]) Vital Signs (Past 12 Hours) Vital Signs Temp Pulse Resp BP Pulse Ox 08/08/21 04:29 37 C 102 H 20 135/66 96 08/08/21 00:00 36.8 C 106 H 18 125/60 94 PG Care Time/CCT Total # of Minutes Spent Total Time Spent with Patient: Total time spent is greater than 50% in coordination of care (as documented) at patient's floor/unit and/or counseling patient: Coding Level of Care Code 35318 Subseq Hosp Care Lvl 3 Diagnoses Acute liver failure K72.00
[2021-08-08] MEDS: cefTRIAXone SODIUM 2,000 MG in DEXTROSE 5% 50 ML IV SCH (18:25)
[2021-08-08] MEDS: HEPARIN SOD 5,000 UNIT/0.5 ML VIAL SQ SCH (21:35)
[2021-08-09] MEDS: LACTATED RINGER'S 1,000 ML IV SCH ×4 (04:41→19:39)
[2021-08-09 05:01] LABS: CMV IgG Antibody <0.60 U/mL; CMV IgM Antibody <30.00 AU/mL; EBV Virus Capsid Ag IgG Ab >750.00 U/mL; HSV Type 1 DNA Not Detected (Not Detected); HSV Type 1&2 DNA Source Serum; HSV Type 2 DNA Not Detected (Not Detected)
[2021-08-09 05:09] LABS: Hematocrit (blood only) 32.5 % (37-47); Hemoglobin 10.9 g/dL (12.0-16.0); Mean Corpuscular Hemoglobin 31.4 pg (25-34); Mean Corpuscular Hgb Conc 33.5 g/dL (32-36); Mean Corpuscular Volume 93.7 fL (80-100); Mean Platelet Volume 11.1 fL (7.4-10.4); Platelet Count 136 K/uL (130-400); RDW Coefficient of Variation 21.8 % (11.5-14.5); RDW Standard Deviation 71.7 fL (36.4-46.3); Red Blood Count 3.47 M/uL (4.2-5.4); White Blood Count 11.33 K/uL (4.8-10.8)
[2021-08-09 05:27] LABS: INR 1.5 (0.9-1.1); Prothrombin Time 14.6 Seconds (9.0-12.0)
[2021-08-09 05:43] LABS: Anisocytosis Present; Basophils # (auto) 0.05 K/uL (0-0.2); Basophils % (auto) 0.4 %; Echinocytes 1+; Eosinophils # (auto) 0.26 K/uL (0-0.5); Eosinophils % (auto) 2.3 %; Immature Granulocytes # (auto) 0.05 K/uL (0.00-0.02); Immature Granulocytes % (auto) 0.4 %; Lymphocytes # (auto) 2.68 K/uL (1.2-3.4); Lymphocytes % (auto) 23.7 %; Monocytes # (auto) 1.76 K/uL (0.11-0.59); Monocytes % (auto) 15.5 %; Neutrophils # (auto) 6.53 K/uL (1.4-6.5); Neutrophils % (auto) 57.7 %; Polychromasia 1+; Target Cells 1+
[2021-08-09 06:00] LABS: Albumin Level 1.4 gm/dl (3.4-5.0); BUN Creatinine Ratio 21.1 (10-20); Calcium 8.7 mg/dl (8.5-10.1); Est GFR (African American) 100.4 ml/min; Est GFR (Non-African American) 86.6 ml/min; Potassium 3.7 mmol/L (3.5-5.1)
[2021-08-09 06:19] LABS: Albumin Globulin Ratio 0.4 (0.9-2); Bilirubin,Total 13.2 mg/dl (0.2-1); Globulin 3.5 gm/dl (2.5-4.0); Total Protein 4.9 gm/dl (6.4-8.2)
[2021-08-09] MEDS: HEPARIN SOD 5,000 UNIT/0.5 ML VIAL SQ SCH ×2 (08:06→20:25)
--- NOTE | 2021-08-09 08:06 | Medical Student Progress Note ---
Date of Service August 09, 2021 Assessment & Plan (1) Acute liver failure: Plan: 76-year-old female with past medical history high cholesterol and hypertension admitted to the hospital for acute liver failure. -Completed NAC protocol -No concerning alcohol use. Holding statin and ezetimibe. No concern for other hepatotoxic medications/supplements. 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 crossreactivity of antibodies test for HIV -AFP noted to be positive at 10, differential includes viral hepatitis, decompensated chronic liver disease, and hepatocellular carcinoma although unlikely -Considering TILLEY, viral cause following results of workup -AST increased from 1946 to 1991 -ALT increased from 858 to 802 -Bilirubin 13.2 -INR continues to be stable at 1.5 -Albumin 1.4 - GI consulted Awaiting pending labs Continuing to monitor Appreciate recommendations (2) Rhabdomyolysis: Plan: Elevated CPK -Source likely from the liver -CPK decreased today to 13,000 from 20,000 -will repeat tomorrow -continue with aggressive IV fluids today with 200 ml/hr LR -Continue monitoring for metabolic abnormalities and kidney function (3) UTI (urinary tract infection): Plan: Simple Cystitis - Resolved -Urine culture positive for Klebsiella -Continue Ceftriaxone 1 g daily for 3 days Started 08/07 Completed 08/09 (4) Acute hypokalemia: Plan: -Stable at 3.7, continue to monitor -Discontinued potassium replacement (5) GERD (gastroesophageal reflux disease): Plan: - Controlled on omeprazole at home - Started on pantoprazole 40 mg QAM and Pepcid 20 mg BID PRN (6) Hypertension: Plan: -Holding amlodipine. Blood pressure is stable. (7) High cholesterol: Plan: -Hold atorvastatin and ezetimibe due acute liver failure and elevated CPK. Plan: VTE prophylaxis - Heparin [id number] Diet - regular code status: full code Disposition - on PCU pending clinical improvement Admission and Anticipated Discharge Date Admission Date: August 04, 2021 Supervising Attestation Medical Student Supervision Note: I was personally present during medical student patient encounter and inde pendently interviewed and examined the patient and verified the keane history and physical, reviewed labs and image studies, discussed the case with Laura Fajardo and agree with the findings and care plan. Awaiting Acute liver failure etiology lab results continue supportive care Subjective Doing well this morning. Eating and drinking well - self limiting to ease. Couldn't sleep lat night due to reflux. Takes OTC antacid at home which she hasn't had here. No other concerns or changes this morning. No fever or chills. No abdominal pain or nausea. No urinary changes. Review of Systems Review of Systems: All systems reviewed & are unremarkable except as noted in Subjective Gastrointestinal: + belching, + bloating and + heartburn Physical Exam Constitutional: WD/WN, vitals as above No acute distress. Resting comfortably in bed. Cardiovascular: RRR, no murmur, no edema Skin: Jaundiced. Results & Data ([facility]) Vital Signs (Past 12 Hours) Vital Signs Temp Pulse Resp BP Pulse Ox 08/09/21 07:00 36.7 C 101 H 20 137/84 93 08/09/21 03:10 37.2 C 103 H 21 146/71 H 96 08/08/21 23:08 37.1 C 100 H 18 130/73 96 Laboratory Results Abnormal lab results 08/04/21 08/04/21 08/05/21 Range/Units 20:10 23:25 16:14 WBC (4.8-10.8) K/uL RBC (4.2-5.4) M/uL Hgb (12.0-16.0) g/dL Hct (37-47) % RDW Std Deviation (36.4-46.3) fL RDW Coeff of Janet (11.5-14.5) % MPV (7.4-10.4) fL Neut # (Auto) (1.4-6.5) K/uL [place] # (Auto) (0.11-0.59) K/uL Immature Gran # (Auto) (0.00-0.02) K/uL PT (9.0-12.0) Seconds INR (0.9-1.1) Sodium (136-145) mmol/L BUN/Creatinine Ratio (10-20) Total Bilirubin (0.2-1) mg/dl AST (15-37) U/L ALT (12-78) Alkaline Phosphatase (45-117) U/L Total Creatine Kinase (26-192) U/L Total Protein (6.4-8.2) gm/dl Albumin (3.4-5.0) gm/dl Albumin/Globulin Ratio (0.9-2) Tumor Marker AFP 10.3 H ng/mL Acetaminophen Screen <10 L (10-20) mg/L EBV Capsid Ag IgG Ab >750.00 H U/mL EBV EA Restrict+Diffuse 49.00 H U/mL EBV Nuclear Antigen Ab 539.00 H U/mL 08/08/21 08/09/21 08/09/21 Range/Units 04:23 04:23 04:23 WBC 11.33 H (4.8-10.8) K/uL RBC 3.47 L (4.2-5.4) M/uL Hgb 10.9 L (12.0-16.0) g/dL Hct 32.5 L (37-47) % RDW Std Deviation 71.7 H (36.4-46.3) fL RDW Coeff of Janet 21.8 H (11.5-14.5) % MPV 11.1 H (7.4-10.4) fL Neut # (Auto) 6.53 H (1.4-6.5) K/uL [place] # (Auto) 1.76 H (0.11-0.59) K/uL Immature Gran # (Auto) 0.05 H (0.00-0.02) K/uL PT 14.6 H (9.0-12.0) Seconds INR 1.5 H (0.9-1.1) Sodium (136-145) mmol/L BUN/Creatinine Ratio (10-20) Total Bilirubin (0.2-1) mg/dl AST (15-37) U/L ALT (12-78) Alkaline Phosphatase (45-117) U/L Total Creatine Kinase 33620 H (26-192) U/L Total Protein (6.4-8.2) gm/dl Albumin (3.4-5.0) gm/dl Albumin/Globulin Ratio (0.9-2) Tumor Marker AFP ng/mL Acetaminophen Screen (10-20) mg/L EBV Capsid Ag IgG Ab U/mL EBV EA Restrict+Diffuse U/mL EBV Nuclear Antigen Ab U/mL 08/09/21 Range/Units 04:23 WBC (4.8-10.8) K/uL RBC (4.2-5.4) M/uL Hgb (12.0-16.0) g/dL Hct (37-47) % RDW Std Deviation (36.4-46.3) fL RDW Coeff of Janet (11.5-14.5) % MPV (7.4-10.4) fL Neut # (Auto) (1.4-6.5) K/uL [place] # (Auto) (0.11-0.59) K/uL Immature Gran # (Auto) (0.00-0.02) K/uL PT (9.0-12.0) Seconds INR (0.9-1.1) Sodium 133 L (136-145) mmol/L BUN/Creatinine Ratio 21.1 H (10-20) Total Bilirubin 13.2 H (0.2-1) mg/dl AST 1992 H (15-37) U/L ALT 858 H (12-78) Alkaline Phosphatase 440 H (45-117) U/L Total Creatine Kinase 70273 H (26-192) U/L Total Protein 4.9 L (6.4-8.2) gm/dl Albumin 1.4 L (3.4-5.0) gm/dl Albumin/Globulin Ratio 0.4 L (0.9-2) Tumor Marker AFP ng/mL Acetaminophen Screen (10-20) mg/L EBV Capsid Ag IgG Ab U/mL EBV EA Restrict+Diffuse U/mL EBV Nuclear Antigen Ab U/mL
[2021-08-09] MEDS ORDERED: FAMOTIDINE 20 MG TAB PO PRN (09:53)
--- NOTE | 2021-08-09 10:21 | Gastroenterology Progress Note ---
Date of Service August 09, 2021 Assessment & Plan (1) Acute liver failure: Plan: -Continue to monitor INR, T bili, AST, & ALT -Await autoimmune work-up -Supportive care -Avoid hepatotoxic agents (2) GERD (gastroesophageal reflux disease): Plan: -Protonix 40 mg daily. -Ok to use Pepcid 20 mg BID prn Admission and Anticipated Discharge Date Admission Date: August 04, 2021 Supervising Physician Co-Signing Physician Notes Agree with LEYDA Duarte as above Abd: Soft, NT, ND, +BS Continue current therapy and supportive care Will follow clinical course and make further recommendations as needed. Subjective Patient is a 76 yo female with acute liver injury. She notes that she is experiencing heartburn today. She does take Nexium daily at home. No pruritus. Persistent jaundice. She denies other new physical complaints. INR 1.5. T Bili 13.2. AST 1992, ALT 858. AMA, LANCE, ASMA pending. Review of Systems Constitutional: no fever and no chills Respiratory: no cough and no dyspnea Cardiovascular: no chest pain Gastrointestinal: heartburn Integumentary: + yellowing of the skin; no pruritus Physical Exam Constitutional: no acute distress Respiratory: normal respiratory effort, lungs clear to auscultation Cardiovascular: Rate/Rhythm: + tachycardic Heart Sounds: + murmur Extremities: + edema (improving) Gastrointestinal (Abdomen): normal bowel sounds, soft, nontender, no hepatosplenomegaly Skin: + jaundice Results & Data Results & Data ([facility]) Vital Signs (Past 12 Hours) Vital Signs Temp Pulse Resp BP Pulse Ox 08/09/21 07:00 36.7 C 101 H 20 137/84 93 08/09/21 03:10 37.2 C 103 H 21 146/71 H 96 08/08/21 23:08 37.1 C 100 H 18 130/73 96 PG Care Time/CCT Total # of Minutes Spent Total Time Spent with Patient: Total time spent is greater than 50% in coordination of care (as documented) at patient's floor/unit and/or counseling patient: Coding Level of Care Code 70735 Subseq Hosp Care Lvl 3 Diagnoses GERD (gastroesophageal reflux disease) K21.9 Acute liver failure K72.00
[2021-08-09] MEDS: PANTOprazole 40 MG TAB PO SCH (11:30)
[2021-08-09 13:56] LABS: Anti Mitochondrial Antibody POSITIVE (NEGATIVE)
[2021-08-09] MEDS: cefTRIAXone SODIUM 2,000 MG in DEXTROSE 5% 50 ML IV SCH (18:16)
[2021-08-09 22:06] LABS: Anti Nuclear Antibody Screen POSITIVE (NEGATIVE); CMV IgG Antibody <0.60 U/mL; CMV IgM Antibody <30.00 AU/mL; Herpes Simplex Ab IgG-2 <0.90 index; Smooth Muscle Antibody NEGATIVE (NEGATIVE)
[2021-08-10] MEDS: LACTATED RINGER'S 1,000 ML IV SCH ×4 (03:42→16:22)
[2021-08-10 06:05] LABS: Basophils # (auto) 0.03 K/uL (0-0.2); Basophils % (auto) 0.3 %; Eosinophils # (auto) 0.23 K/uL (0-0.5); Eosinophils % (auto) 1.9 %; Hematocrit (blood only) 31.3 % (37-47); Hemoglobin 10.5 g/dL (12.0-16.0); Immature Granulocytes # (auto) 0.11 K/uL (0.00-0.02); Immature Granulocytes % (auto) 0.9 %; Lymphocytes # (auto) 2.49 K/uL (1.2-3.4); Mean Corpuscular Hemoglobin 31.3 pg (25-34); Mean Corpuscular Hgb Conc 33.5 g/dL (32-36); Mean Corpuscular Volume 93.2 fL (80-100); Mean Platelet Volume 10.8 fL (7.4-10.4); Monocytes # (auto) 1.74 K/uL (0.11-0.59); Monocytes % (auto) 14.7 %; Neutrophils # (auto) 7.24 K/uL (1.4-6.5); Neutrophils % (auto) 61.2 %; Platelet Count 154 K/uL (130-400); RDW Coefficient of Variation 21.8 % (11.5-14.5); RDW Standard Deviation 70.4 fL (36.4-46.3); Red Blood Count 3.36 M/uL (4.2-5.4); White Blood Count 11.84 K/uL (4.8-10.8)
[2021-08-10 06:11] LABS: INR 1.4 (0.9-1.1); Prothrombin Time 14.2 Seconds (9.0-12.0)
[2021-08-10 06:35] LABS: Albumin Globulin Ratio 0.4 (0.9-2); Albumin Level 1.3 gm/dl (3.4-5.0); BUN Creatinine Ratio 19.7 (10-20); Bilirubin,Total 13.5 mg/dl (0.2-1); Calcium 8.6 mg/dl (8.5-10.1); Creatinine Clr Calc Pharmacy 82.2 ml/min; Est GFR (African American) 100.9 ml/min; Globulin 3.4 gm/dl (2.5-4.0); Magnesium 1.8 mg/dl (1.8-2.4); Phosphorus 2.7 mg/dl (2.5-4.9); Potassium 3.9 mmol/L (3.5-5.1); Total Protein 4.7 gm/dl (6.4-8.2)
[2021-08-10 06:58] LABS: Anisocytosis Present; Polychromasia 1+; Target Cells 1+
[2021-08-10] MEDS: HEPARIN SOD 5,000 UNIT/0.5 ML VIAL SQ SCH ×2 (08:15→20:36)
[2021-08-10] MEDS: PANTOprazole 40 MG TAB PO SCH (08:15)
--- NOTE | 2021-08-10 09:15 | Gastroenterology Progress Note ---
Date of Service August 10, 2021 Assessment & Plan (1) Acute liver failure: Plan: -Continue to monitor INR, T bili, AST, & ALT -Recommend liver biopsy given positive AMA, LANCE -Await ASMA -Obtain SPEP -Obtain UPEP & anti soluble liver antibody; if unable to do as inpatient can do as outpatient -Obtain anti LKM -Start Prednisone 60 mg daily in the event this truly represents autoimmune hepatitis -Supportive care -Avoid hepatotoxic agents -Patient will need a bilingual customer service specialist upon discharge or sooner if clinical picture worsens (2) GERD (gastroesophageal reflux disease): Plan: -Protonix 40 mg daily. -Ok to use Pepcid 20 mg BID prn Admission and Anticipated Discharge Date Admission Date: August 04, 2021 Supervising Physician Co-Signing Physician Notes Agree with LEYDA Duarte as above Abd: Soft, NT, ND, +BS Continue current therapy and supportive care Prednisone 60 mg by mouth daily started today Await results of Liver biopsy now Subjective Patient is a 76 yo female with acute liver failure. INR 1.4 this AM. T Bili 13.5, AST 1700, ALT 814, AP 422. AMA returned positive as did LANCE today. She denies changes to her symptoms. She notes improvement of her reflux since PPI addition. Review of Systems Constitutional: no fever and no chills Eyes: as per Subjective / HPI Ear, Nose, Mouth, Throat: as per Subjective / HPI Respiratory: no cough and no dyspnea Cardiovascular: no chest pain Gastrointestinal: heartburn Musculoskeletal: as per Subjective / HPI Integumentary: + yellowing of the skin; no pruritus Neurologic: as per Subjective / HPI Psychiatric: as per Subjective / HPI Endocrine: as per Subjective / HPI Hematologic / Lymphatic: as per Subjective / HPI Allergy / Immunological: as per Subjective / HPI Physical Exam Constitutional: WD/WN, vitals as above well developed; no acute distress Respiratory: normal respiratory effort, lungs clear to auscultation Cardiovascular: Rate/Rhythm: + tachycardic Heart Sounds: + murmur Extremities: + edema (improving) Gastrointestinal (Abdomen): normal bowel sounds, soft, nontender, no hepatosplenomegaly Inspection/Auscultation: abdomen normal to inspection and normal bowel sounds Percussion/Palpation: abdomen soft; abdomen nontender Skin: + jaundice Psychiatric: Orientation: alert and oriented x 3 Results & Data Results & Data ([facility]) Vital Signs (Past 12 Hours) Vital Signs Temp Pulse Pulse Resp BP Pulse Ox 08/10/21 07:37 36.7 C 99 H 24 120/68 94 08/10/21 03:27 37.2 C 96 H 22 121/62 93 08/10/21 00:21 95 H 08/10/21 00:00 36.9 C 97 H 20 125/62 94 PG Care Time/CCT Total # of Minutes Spent Total Time Spent with Patient: Total time spent is greater than 50% in coordination of care (as documented) at patient's floor/unit and/or counseling patient: Coding Level of Care Code 40802 Subseq Hosp Care Lvl 3 Diagnoses Acute liver failure K72.00 GERD (gastroesophageal reflux disease) K21.9
--- NOTE | 2021-08-10 09:53 | Medical Student Progress Note ---
Date of Service August 10, 2021 Assessment & Plan (1) Acute liver failure: Plan: 76-year-old female with past medical history high cholesterol and hypertension admitted to the hospital for acute liver failure. 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 - GI consulted liver biopsy completed today for concern of autoimmune hepatitis Start Prednisone 60 mg daily for prophylactic treatment of autoimmune hepatitis SPEP, UPEP, anti-LKM pending Appreciate recommendations -Liver studies downtrending AST decreased to 1700 from 1991 ALT increased from 814 from 858 Bilirubin 13.5 from 13.2 INR 1.4 from 1.5 Albumin 1.4 to 1.3 - Autoimmune workup LANCE positive AMA positive ASMA negative -Viral workup: Hepatitis panel negative EBV: Monoscreen negative EBV antibodies: EBV Capsid antigen IgG positive, EBV Early antigen positive, EBV Nuclear Antigen antibody positive, EBV IgM negative HSV1 and 2: DNA PCR negative HIV negative CMV pending -Liver U/S showed cirrhosis without biliary obstruction -Completed NAC protocol on admission. No concerning alcohol use. Holding statin and ezetimibe. No concern for other hepatotoxic medications/supplements. -AFP noted to be positive at 10, differential includes viral hepatitis, decompensated chronic liver disease, and hepatocellular carcinoma although unlikely (2) Rhabdomyolysis: Plan: Elevated CPK -Source likely from the liver -CPK decreased from 13,000 to 6,600. -Decrease IV fluids to 125 ml/hr LR -Continue monitoring for metabolic abnormalities and kidney function (3) UTI (urinary tract infection): Plan: Simple Cystitis - Resolved -Urine culture positive for Klebsiella -Continue Ceftriaxone 1 g daily for 3 days Started 08/07 Completed 08/09 (4) Acute hypokalemia: Plan: Resolved -Stable at 3.9, continue to monitor -Discontinued potassium replacement (5) GERD (gastroesophageal reflux disease): Plan: Continue pantoprazole 40 mg QAM and Pepcid 20 mg BID PRN (6) Hypertension: Plan: -Holding amlodipine. Blood pressure is stable within normal limits. (7) High cholesterol: Plan: -Hold atorvastatin and ezetimibe due acute liver failure and elevated CPK. Plan: VTE prophylaxis - Heparin [id number] FEN/GI: regular diet, LR@125ml/hr code status: full code Disposition - transfer to med/tele Admission and Anticipated Discharge Date Admission Date: August 04, 2021 Supervising Attestation Medical Student Supervision Note: I was personally present during medical student patient encounter and independently interviewed and examined the patient and verified the keane history and physical, reviewed labs and image studies, discussed the case with Laura Fajardo and agree with the findings and care plan. LFT down trending s/p Liver biopsy started on prednisone. decrease IVF - cpk level coming down Subjective No acute events overnight. Feeling better this morning. Spending more time sitting in the chair. Reflux resolved. Fatigue and weakness slowly improving. She notes increased leg edema. No shortness of breath. No abdominal pain. No changes in urination or BM. Review of Systems Review of Systems: All systems reviewed & are unremarkable except as noted in Subjective Physical Exam Constitutional: WD/WN, vitals as above no acute distress Respiratory: normal respiratory effort, lungs clear to auscultation Cardiovascular: Rate/Rhythm: + tachycardic Extremities: + edema (bilateral lower extremitiy, nonpitting, 2+) Gastrointestinal (Abdomen): normal bowel sounds, soft, nontender, no hepatosplenomegaly Skin: + jaundice Psychiatric: A+Ox3, euthymic affect Results & Data ([facility]) Vital Signs (Past 12 Hours) Vital Signs Temp Pulse Pulse Resp BP Pulse Ox 08/10/21 07:37 36.7 C 99 H 24 120/68 94 08/10/21 03:27 37.2 C 96 H 22 121/62 93 08/10/21 00:21 95 H 08/10/21 00:00 36.9 C 97 H 20 125/62 94 Laboratory Results Abnormal lab results 08/04/21 08/07/21 08/10/21 Range/Units 23:25 09:45 05:31 WBC 11.84 H (4.8-10.8) K/uL RBC 3.36 L (4.2-5.4) M/uL Hgb 10.5 L (12.0-16.0) g/dL Hct 31.3 L (37-47) % RDW Std Deviation 70.4 H (36.4-46.3) fL RDW Coeff of Janet 21.8 H (11.5-14.5) % MPV 10.8 H (7.4-10.4) fL Neut # (Auto) 7.24 H (1.4-6.5) K/uL [place] # (Auto) 1.74 H (0.11-0.59) K/uL Immature Gran # (Auto) 0.11 H (0.00-0.02) K/uL PT (9.0-12.0) Seconds INR (0.9-1.1) Sodium (136-145) mmol/L Total Bilirubin (0.2-1) mg/dl AST (15-37) U/L ALT (12-78) Alkaline Phosphatase (45-117) U/L Total Creatine Kinase (26-192) U/L Total Protein (6.4-8.2) gm/dl Albumin (3.4-5.0) gm/dl Albumin/Globulin Ratio (0.9-2) LANCE Screen POSITIVE A (NEGATIVE) Anti-Mitochondrial Ab POSITIVE A (NEGATIVE) HSV I IgG Ab 40.00 H index 08/10/21 08/10/21 08/10/21 Range/Units 05:31 05:31 05:31 WBC (4.8-10.8) K/uL RBC (4.2-5.4) M/uL Hgb (12.0-16.0) g/dL Hct (37-47) % RDW Std Deviation (36.4-46.3) fL RDW Coeff of Janet (11.5-14.5) % MPV (7.4-10.4) fL Neut # (Auto) (1.4-6.5) K/uL [place] # (Auto) (0.11-0.59) K/uL Immature Gran # (Auto) (0.00-0.02) K/uL PT 14.2 H (9.0-12.0) Seconds INR 1.4 H (0.9-1.1) Sodium 134 L (136-145) mmol/L Total Bilirubin 13.5 H (0.2-1) mg/dl AST 1700 H (15-37) U/L ALT 814 H (12-78) Alkaline Phosphatase 422 H (45-117) U/L Total Creatine Kinase 6634 H (26-192) U/L Total Protein 4.7 L (6.4-8.2) gm/dl Albumin 1.3 L (3.4-5.0) gm/dl Albumin/Globulin Ratio 0.4 L (0.9-2) LANCE Screen (NEGATIVE) Anti-Mitochondrial Ab (NEGATIVE) HSV I IgG Ab index
[2021-08-10] MEDS: predniSONE 20 MG TAB PO SCH (11:00)
--- NOTE | 2021-08-10 14:36 | Ultrasound Report ---
ULTRASOUND-GUIDED CORE NEEDLE LIVER PARENCHYMAL BIOPSY HISTORY: Acute liver failure, Concern for autoimmune hepatitis COMPARISON: Abdomen and pelvis CT 08/04/2021 PROCEDURE: Written informed consent was obtained. The epigastric region was prepped and draped in the usual sterile fashion. 1% lidocaine was used for local anesthesia. A total of one pass using an 18-g auge by 9 cm biopsy needle was made through the left hepatic lobe under ultrasound guidance. A single specimen was obtained and sent to pathology for further evaluation. The patient tolerated the proced ure well. There were no immediate complication. IMPRESSION: Successful ultrasound-guided core needle liver parenchymal biopsy. ACT 112: Negative or not required by law. Electronically signed by: Basil Coronado M.D. 08/10/2021 2:34 PM
[2021-08-10] MEDS: cefTRIAXone SODIUM 2,000 MG in DEXTROSE 5% 50 ML IV SCH (17:47)
[2021-08-11] MEDS: LACTATED RINGER'S 1,000 ML IV SCH ×2 (04:19→09:51)
[2021-08-11 05:55] LABS: Basophils # (auto) 0.01 K/uL (0-0.2); Basophils % (auto) 0.1 %; Eosinophils # (auto) 0.01 K/uL (0-0.5); Eosinophils % (auto) 0.1 %; Hematocrit (blood only) 31.5 % (37-47); Hemoglobin 10.7 g/dL (12.0-16.0); Immature Granulocytes # (auto) 0.09 K/uL (0.00-0.02); Immature Granulocytes % (auto) 0.7 %; Lymphocytes % (auto) 17.6 %; Mean Corpuscular Hemoglobin 31.6 pg (25-34); Mean Corpuscular Volume 92.9 fL (80-100); Mean Platelet Volume 10.9 fL (7.4-10.4); Monocytes # (auto) 1.24 K/uL (0.11-0.59); Monocytes % (auto) 9.5 %; Neutrophils # (auto) 9.42 K/uL (1.4-6.5); Platelet Count 171 K/uL (130-400); RDW Coefficient of Variation 21.6 % (11.5-14.5); RDW Standard Deviation 71.7 fL (36.4-46.3); Red Blood Count 3.39 M/uL (4.2-5.4); White Blood Count 13.07 K/uL (4.8-10.8)
[2021-08-11 06:29] LABS: Anisocytosis Present; Echinocytes 1+; Hypochromasia Present; Polychromasia 1+; Target Cells 1+
[2021-08-11 06:53] LABS: Albumin Globulin Ratio 0.4 (0.9-2); Albumin Level 1.3 gm/dl (3.4-5.0); BUN Creatinine Ratio 21.8 (10-20); Bilirubin,Total 13.8 mg/dl (0.2-1); Calcium 8.7 mg/dl (8.5-10.1); Creatinine Clr Calc Pharmacy 62.4 ml/min; Est GFR (African American) 76.1 ml/min; Est GFR (Non-African American) 65.6 ml/min; Globulin 3.7 gm/dl (2.5-4.0); Magnesium 1.9 mg/dl (1.8-2.4); Phosphorus 3.1 mg/dl (2.5-4.9); Potassium 4.3 mmol/L (3.5-5.1)
[2021-08-11] MEDS: PANTOprazole 40 MG TAB PO SCH (08:02)
[2021-08-11] MEDS: HEPARIN SOD 5,000 UNIT/0.5 ML VIAL SQ SCH ×2 (08:03→20:02)
[2021-08-11] MEDS: predniSONE 20 MG TAB PO SCH (08:03)
--- NOTE | 2021-08-11 08:51 | Gastroenterology Progress Note ---
Date of Service August 11, 2021 Assessment & Plan (1) Acute liver failure: Plan: -Continue to monitor liver panel & INR -Await results of liver biopsy -Continue 60 mg Prednisone for now (would plan to taper after 1 week) -Await remaining electrophoresis studies and antigen studies -If no improvement with steroids, would recommend transfer to a tertiary liver center Admission and Anticipated Discharge Date Admission Date: August 04, 2021 Supervising Physician Co-Signing Physician Notes Agree with LEYDA Duarte as above Abd: Soft, NT, ND, +BS Up approximately 10 kg since admission, consider diuresis as per Hospitalist team Continue Prednisone 60 mg by mouth daily Liver biopsy pending Subjective Patient is a 76 yo female with acute liver failure. AFP 10. WBC count elevated >13, though patient is on steroids. T Bili 13.8. AST 1389. ALT 811. AP 446. Patient is currently on 60 mg of Prednisone daily due to positive LANCE & AMA and concerns for possible AIH. She underwent a liver biopsy on 08/10/21. She reports she thinks she is volume overloaded today. She reports SOB & worsening LE edema. No new complaints otherwise. Viral work-up negative. INR 1.4. Current MELD 24. Labs have remained level for the past 3 days. As a clinical review: -CT abd indicated cirrhotic changes of the liver -No recent antibiotic use prior to admission -NAC protocol upon admission, though Tylenol level returned negative -No alcohol consumption -Hep A, B, C testing negative -EBV, CMV, HSV, HIV, COVID19 negative -AFP 10 -US and CT imaging without evidence for biliary obstruction -T Bili has remained at 13 for 3 days -INR 1.4-1.5 -MELD presently 24 -LANCE, AMA positive -ASMA negative -SPEP & Liver-kidney microsomal antibodies pending -Unable to obtain a UPEP and anti soluble liver antigen as an inpatient Review of Systems Constitutional: no fever and no chills Respiratory: + dyspnea on exertion Cardiovascular: + edema; no chest pain Gastrointestinal: no abdominal pain Physical Exam Constitutional: well developed Respiratory: normal respiratory effort; no respiratory distress Cardiovascular: Rate/Rhythm: regular rate Heart Sounds: + murmur Extremities: + edema Gastrointestinal (Abdomen): normal bowel sounds, soft, nontender, no hepatosplenomegaly Skin: + jaundice Psychiatric: Orientation: alert and oriented x 3 Results & Data Results & Data ([facility]) Vital Signs (Past 12 Hours) Vital Signs Temp Pulse Pulse Resp BP BP Pulse Ox 08/11/21 07:56 36.7 C 92 H 21 117/67 95 08/11/21 04:00 36.6 C 93 H 24 143/91 H 94 08/11/21 00:56 85 08/10/21 23:16 36.6 C 91 H 18 114/73 94 PG Care Time/CCT Total # of Minutes Spent Total Time Spent with Patient: Total time spent is greater than 50% in coordination of care (as documented) at patient's floor/unit and/or counseling patient: Coding Level of Care Code 95194 Subseq Hosp Care Lvl 3 Diagnoses Acute liver failure K72.00
--- NOTE | 2021-08-11 10:35 | Medical Student Progress Note ---
Date of Service August 11, 2021 Assessment & Plan (1) Acute liver failure: Plan: 76-year-old female with past medical history high cholesterol and hypertension admitted to the hospital for acute liver failure. 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 Started 08/10 Plan to taper after 1 week. SPEP and liver-kidney microsomal antibodies pending Depending on response to steroid, consider transfer to tertiary liver center Appreciate recommendations -Liver studies downtrending AST decreased to 1400 from 1700 ALT decreased to 811 from 814 Bilirubin 13.8 from 13.5 INR stable at 1.4-1.5 Albumin stable at 1.3 - Autoimmune workup LANCE positive AMA positive ASMA negative -Viral workup: Negative -Liver U/S showed cirrhosis without biliary obstruction -Completed NAC protocol on admission. No concerning alcohol use. Holding statin and ezetimibe. No concern for other hepatotoxic medications/supplements. -AFP noted to be positive at 10, differential includes viral hepatitis, decompensated chronic liver disease, and hepatocellular carcinoma although unlikely (2) Rhabdomyolysis: Plan: Elevated CPK -Source likely from the liver -CPK downtrending -Recheck today -Holding IV fluids (125 ml/hr LR) for the time being due to concerns of fluid overload. Reevaluate. -Continue monitoring for metabolic abnormalities and kidney function (3) UTI (urinary tract infection): Plan: Simple Cystitis - Resolved -Urine culture positive for Klebsiella -Continue Ceftriaxone 1 g daily for 3 days Started 08/07 Completed 08/09 (4) Acute hypokalemia: Plan: Resolved -Stable at 3.9, continue to monitor -Discontinued potassium replacement (5) GERD (gastroesophageal reflux disease): Plan: Continue pantoprazole 40 mg QAM and Pepcid 20 mg BID PRN (6) Hypertension: Plan: -Holding amlodipine. Blood pressure within normal limits. (7) High cholesterol: Plan: -Hold atorvastatin and ezetimibe due acute liver failure and elevated CPK. Plan: VTE prophylaxis - Heparin [id number] FEN/GI: regular diet code status: full code Disposition - transfer to med/tele Admission and Anticipated Discharge Date Admission Date: August 04, 2021 Supervising Attestation I have seen and evaluated the patient. I have discussed the case with Laura DINERO and agree with her plan as documented. Alberto Rodriguez MD PGY-3 Attending Physicain Medical Student Supervision Note: I independently interviewed and examined the patient and verified the keane history and physical, reviewed labs and image studies, discussed the case with the medical student Laura Fajardo and the Resident physician Dr. Kenia Rodriguez and agree with the findings and care plan. Improving liver enzyme levels. out of bed as much possible. hold IVF to avoid fluid overload. Per GI - -Continue to monitor liver panel & INR -Await results of liver biopsy -Continue 60 mg Prednisone for now (would plan to taper after 1 week) -Await remaining electrophoresis studies and antigen studies -If no improvement with steroids, would recommend transfer to a tertiary liver center [facility]. Subjective Today Emiliana is doing well. Concerned she might be fluid overloaded. Shortness of breath had improved but with starting morning IV fluid bag began to increase SOB and lower extremity edema. The IV fluids were discontinued. She has no other concerns. Eating and drinking well. Sitting in chair throughout the day. Feeling short of breath and fatigued. No abdominal pain or abdominal fullness. Urinating and moving bowels with no concerns. Review of Systems Review of Systems: All systems reviewed & are unremarkable except as noted in Subjective Physical Exam Constitutional: WD/WN, vitals as above No acute distress. Resting comfortably in bed. Respiratory: Normal respiratory effort. No respiratory stress. Increased crackles at lung bases bilaterally. Cardiovascular: Rate/Rhythm: regular rate and regular rhythm Extremities: + edema (3+ pitting edema bilaterally) Gastrointestinal (Abdomen): normal bowel sounds, soft, nontender, no hepatosplenomegaly Skin: Jaundiced. Psychiatric: A+Ox3, euthymic affect Results & Data ([facility]) Vital Signs (Past 12 Hours) Vital Signs Temp Pulse Pulse Resp BP BP Pulse Ox 08/11/21 07:56 36.7 C 92 H 21 117/67 95 08/11/21 04:00 36.6 C 93 H 24 143/91 H 94 08/11/21 00:56 85 08/10/21 23:16 36.6 C 91 H 18 114/73 94
[2021-08-11 12:40] LABS: ANA Titer > OR = 1:1280 titer
[2021-08-11] MEDS: cefTRIAXone SODIUM 2,000 MG in DEXTROSE 5% 50 ML IV SCH (17:45)
[2021-08-12 05:43] LABS: Hematocrit (blood only) 32.1 % (37-47); Hemoglobin 10.8 g/dL (12.0-16.0); Mean Corpuscular Hemoglobin 31.2 pg (25-34); Mean Corpuscular Hgb Conc 33.6 g/dL (32-36); Mean Corpuscular Volume 92.8 fL (80-100); Mean Platelet Volume 10.1 fL (7.4-10.4); Platelet Count 184 K/uL (130-400); RDW Coefficient of Variation 21.8 % (11.5-14.5); RDW Standard Deviation 71.7 fL (36.4-46.3); Red Blood Count 3.46 M/uL (4.2-5.4); White Blood Count 16.46 K/uL (4.8-10.8)
[2021-08-12 05:57] LABS: INR 1.4 (0.9-1.1); Prothrombin Time 14.2 Seconds (9.0-12.0)
[2021-08-12 06:38] LABS: Albumin Globulin Ratio 0.4 (0.9-2); Albumin Level 1.4 gm/dl (3.4-5.0); BUN Creatinine Ratio 27.2 (10-20); Bilirubin,Total 12.7 mg/dl (0.2-1); Calcium 8.6 mg/dl (8.5-10.1); Creatinine Clr Calc Pharmacy 68.4 ml/min; Est GFR (African American) 81.7 ml/min; Est GFR (Non-African American) 70.5 ml/min; Globulin 3.8 gm/dl (2.5-4.0); Magnesium 2.2 mg/dl (1.8-2.4); Phosphorus 2.6 mg/dl (2.5-4.9); Potassium 4.3 mmol/L (3.5-5.1); Total Protein 5.2 gm/dl (6.4-8.2)
[2021-08-12] MEDS: PANTOprazole 40 MG TAB PO SCH (07:38)
[2021-08-12] MEDS: predniSONE 20 MG TAB PO SCH (07:38)
[2021-08-12] MEDS: HEPARIN SOD 5,000 UNIT/0.5 ML VIAL SQ SCH ×2 (07:39→20:05)
--- NOTE | 2021-08-12 10:06 | Hospitalist Progress Note ---
Date of Service August 12, 2021 Assessment & Plan (1) Acute liver failure: Plan: 76-year-old female with past medical history high cholesterol and hypertension admitted to the hospital for acute liver failure. Acute Liver Failure - Completed NAC protocol on admission. No concerning alcohol use. Holding statin and ezetimibe. No concern for other hepatotoxic medications/supplements. - Autoimmune workup: LANCE positive, AMA positive, ASMA negative - Viral workup: Negative - Liver U/S showed cirrhosis without biliary obstruction - AFP noted to be positive at 10, differential includes viral hepatitis, decompensated chronic liver disease, and hepatocellular carcinoma although unlikely - GI consulted. - Liver biopsy completed 08/10/21 for concern of autoimmune hepatitis, path report is pending - Continue Prednisone 60 mg daily for now, started 08/10. Plan to taper after 1 week. - SPEP and liver-kidney microsomal antibodies, pending. - Depending on response to steroid, may consider transfer to tertiary liver center - Patient is net + ~13L since admission. Will trial diuresis with 40mg IV lasix x1 today. - Liver studies are improving. Continue to monitor with CMP and INR qAM. Rhabdomyolysis, Elevated CPK - CPK level upto 20k - Source likely from the liver - After IV hydration - CPK down to 700 Weakness/Deconditioning - Secondary to acute liver failure and rhabdomyolysis - PT/OT ordered Simple Cystitis - Urine culture positive for Klebsiella - Tx w/ Ceftriaxone 1 g daily x5 days -- 08/07/21 to 08/12/21 Electrolyte abnormalities: Hypokalemia, resolved - Continue to monitor BMP qAM and replete as indicated Chronic Conditions Hypertension: Holding amlodipine. Blood pressure within normal limits. GERD: continue pantoprazole 40mg po qAM and pepcid 20mg BID prn Hyperlipidemia: Hold atorvastatin and ezetimibe due acute liver failure and elevated CPK. VTE prophylaxis - Heparin [id number] FEN/GI: regular diet code status: full code Disposition: continue on med/tele (2) Rhabdomyolysis: (3) UTI (urinary tract infection): (4) Acute hypokalemia: (5) GERD (gastroesophageal reflux disease): (6) Hypertension: (7) High cholesterol: Admission and Anticipated Discharge Date Admission Date: August 04, 2021 Supervising Physician Co-Signing Physician Notes Resident Physician Supervision Note: I independently interviewed and examined the patient and verified the keane his tory and physical, reviewed labs and image studies and agree with resident Dr. Trejo findings and care plan. Subjective Patient seen and evaluated at bedside this morning. No acute events overnight. States that she overall feels tired but w/ no pain. Is sleeping and eating well. Some SOB with movement and getting OOB. Denies CP, abd pain, nausea, vomiting, headache. Review of Systems Review of Systems: See HPI Physical Exam Physical Exam: GENERAL: No acute distress. Well developed and well nourished. Vital signs reviewed as above. EYES: EOMI. Anicteric sclerae. HENT: Moist mucous membranes. RESPIRATORY: Clear to auscultation bilaterally. No wheezing, rales, or rhonchi. CARDIOVASCULAR: Regular rate and rhythm. + murmur. ABDOMEN: Soft, non-tender and non-distended. No palpable masses. Normal bowel sounds. EXTREMITIES: 1-2+ BLE edema. Non-tender. SKIN: Warm, dry. NEUROLOGIC: A/O x3. No focal neurological deficits. PSYCHIATRIC: Cooperative. Appropriate mood and affect. Results & Data Results & Data ([facility]) Vital Signs (Past 12 Hours) Vital Signs Temp Pulse Pulse Resp BP Pulse Ox 08/12/21 07:47 36.4 C L 98 H 16 138/78 98 08/12/21 04:00 36.7 C 97 H 22 114/59 L 93 08/12/21 01:00 82 08/11/21 22:08 36.5 C 88 18 138/68 95 Laboratory Results 08/12/21 08/12/21 08/12/21 Range/Units 05:33 05:33 05:33 WBC 16.46 H (4.8-10.8) K/uL RBC 3.46 L (4.2-5.4) M/uL Hgb 10.8 L (12.0-16.0) g/dL Hct 32.1 L (37-47) % MCV 92.8 (80-100) fL MCH 31.2 (25-34) pg MCHC 33.6 (32-36) g/dL RDW Std Deviation 71.7 H (36.4-46.3) fL RDW Coeff of Janet 21.8 H (11.5-14.5) % Plt Count 184 (130-400) K/uL MPV 10.1 (7.4-10.4) fL PT 14.2 H (9.0-12.0) Seconds INR 1.4 H (0.9-1.1) Sodium 132 L (136-145) mmol/L Potassium 4.3 (3.5-5.1) mmol/L Chloride 102 (98-107) mmol/L Carbon Dioxide 22 (21-32) mmol/L Anion Gap 8.0 (3-11) BUN 22 H (7-18) mg/dl Creatinine 0.82 (0.6-1.2) mg/dl Est Cr Clr Drug Dosing 68.4 ml/min Est GFR ( Amer) 81.7 ml/min Est GFR (Non-Af Amer) 70.5 ml/min BUN/Creatinine Ratio 27.2 H (10-20) Glucose 109 H (70-99) mg/dl Calcium 8.6 (8.5-10.1) mg/dl Phosphorus 2.6 (2.5-4.9) mg/dl Magnesium 2.2 (1.8-2.4) mg/dl Total Bilirubin 12.7 H (0.2-1) mg/dl AST 1041 H (15-37) U/L ALT 798 H (12-78) Alkaline Phosphatase 478 H (45-117) U/L Ammonia (11-32) umol/L Total Creatine Kinase 762 H (26-192) U/L Total Protein 5.2 L (6.4-8.2) gm/dl Albumin 1.4 L (3.4-5.0) gm/dl Globulin 3.8 (2.5-4.0) gm/dl Albumin/Globulin Ratio 0.4 L (0.9-2) Mitochondrial AB Titer (<1:20) titer LANCE Screen (NEGATIVE) LANEC Titer titer LANCE Pattern Anti-Mitochondrial Ab (NEGATIVE) Anti-Smooth Muscle Ab (NEGATIVE) CMV IgM Ab AU/mL CMV IgG Ab/TORCH U/mL HSV I IgG Ab index HSV I IgM TORCH (Negative) HSV II IgG index HSV II IgM TORCH (Negative) 08/11/21 08/11/21 08/07/21 Range/Units 14:06 14:06 09:45 WBC (4.8-10.8) K/uL RBC (4.2-5.4) M/uL Hgb (12.0-16.0) g/dL Hct (37-47) % MCV (80-100) fL MCH (25-34) pg MCHC (32-36) g/dL RDW Std Deviation (36.4-46.3) fL RDW Coeff of Janet (11.5-14.5) % Plt Count (130-400) K/uL MPV (7.4-10.4) fL PT (9.0-12.0) Seconds INR (0.9-1.1) Sodium (136-145) mmol/L Potassium (3.5-5.1) mmol/L Chloride (98-107) mmol/L Carbon Dioxide (21-32) mmol/L Anion Gap (3-11) BUN (7-18) mg/dl Creatinine (0.6-1.2) mg/dl Est Cr Clr Drug Dosing ml/min Est GFR ( Amer) ml/min Est GFR (Non-Af Amer) ml/min BUN/Creatinine Ratio (10-20) Glucose (70-99) mg/dl Calcium (8.5-10.1) mg/dl Phosphorus (2.5-4.9) mg/dl Magnesium (1.8-2.4) mg/dl Total Bilirubin (0.2-1) mg/dl AST (15-37) U/L ALT (12-78) Alkaline Phosphatase (45-117) U/L Ammonia < 10.0 L (11-32) umol/L Total Creatine Kinase 1744 H (26-192) U/L Total Protein (6.4-8.2) gm/dl Albumin (3.4-5.0) gm/dl Globulin (2.5-4.0) gm/dl Albumin/Globulin Ratio (0.9-2) Mitochondrial AB Titer 1:320 H (<1:20) titer LANCE Screen (NEGATIVE) LANCE Titer titer LANCE Pattern Anti-Mitochondrial Ab POSITIVE A (NEGATIVE) Anti-Smooth Muscle Ab (NEGATIVE) CMV IgM Ab AU/mL CMV IgG Ab/TORCH U/mL HSV I IgG Ab index HSV I IgM TORCH (Negative) HSV II IgG index HSV II IgM TORCH (Negative) 08/04/21 Range/Units 23:25 WBC (4.8-10.8) K/uL RBC (4.2-5.4) M/uL Hgb (12.0-16.0) g/dL Hct (37-47) % MCV (80-100) fL MCH (25-34) pg MCHC (32-36) g/dL RDW Std Deviation (36.4-46.3) fL RDW Coeff of Janet (11.5-14.5) % Plt Count (130-400) K/uL MPV (7.4-10.4) fL PT (9.0-12.0) Seconds INR (0.9-1.1) Sodium (136-145) mmol/L Potassium (3.5-5.1) mmol/L Chloride (98-107) mmol/L Carbon Dioxide (21-32) mmol/L Anion Gap (3-11) BUN (7-18) mg/dl Creatinine (0.6-1.2) mg/dl Est Cr Clr Drug Dosing ml/min Est GFR ( Amer) ml/min Est GFR (Non-Af Amer) ml/min BUN/Creatinine Ratio (10-20) Glucose (70-99) mg/dl Calcium (8.5-10.1) mg/dl Phosphorus (2.5-4.9) mg/dl Magnesium (1.8-2.4) mg/dl Total Bilirubin (0.2-1) mg/dl AST (15-37) U/L ALT (12-78) Alkaline Phosphatase (45-117) U/L Ammonia (11-32) umol/L Total Creatine Kinase (26-192) U/L Total Protein (6.4-8.2) gm/dl Albumin (3.4-5.0) gm/dl Globulin (2.5-4.0) gm/dl Albumin/Globulin Ratio (0.9-2) Mitochondrial AB Titer (<1:20) titer LANCE Screen POSITIVE A (NEGATIVE) LANCE Titer > OR = 1:1280 A titer LANCE Pattern A Anti-Mitochondrial Ab (NEGATIVE) Anti-Smooth Muscle Ab NEGATIVE (NEGATIVE) CMV IgM Ab <30.00 AU/mL CMV IgG Ab/TORCH <0.60 U/mL HSV I IgG Ab 40.00 H index HSV I IgM TORCH Negative (Negative) HSV II IgG <0.90 index HSV II IgM TORCH Negative (Negative) Resident Activity Tracking Resident Involvement: Resident Care Provided Care Provided: Adult Hospital Medicine
[2021-08-12] MEDS ORDERED: FUROSEMIDE 40 MG/4 ML VIAL IV ONE (15:30)
[2021-08-13 05:39] LABS: Hematocrit (blood only) 32.5 % (37-47); Hemoglobin 10.9 g/dL (12.0-16.0); Mean Corpuscular Hemoglobin 31.2 pg (25-34); Mean Corpuscular Hgb Conc 33.5 g/dL (32-36); Mean Corpuscular Volume 93.1 fL (80-100); Mean Platelet Volume 10.5 fL (7.4-10.4); Platelet Count 195 K/uL (130-400); RDW Standard Deviation 73.6 fL (36.4-46.3); Red Blood Count 3.49 M/uL (4.2-5.4); White Blood Count 15.62 K/uL (4.8-10.8)
[2021-08-13 05:47] LABS: INR 1.5 (0.9-1.1); Prothrombin Time 14.5 Seconds (9.0-12.0)
[2021-08-13 06:29] LABS: Albumin Globulin Ratio 0.4 (0.9-2); Albumin Level 1.5 gm/dl (3.4-5.0); BUN Creatinine Ratio 31.2 (10-20); Bilirubin,Total 11.8 mg/dl (0.2-1); Calcium 8.5 mg/dl (8.5-10.1); Creatinine Clr Calc Pharmacy 61.6 ml/min; Est GFR (Non-African American) 62.2 ml/min; Globulin 3.6 gm/dl (2.5-4.0); Magnesium 2.2 mg/dl (1.8-2.4); Phosphorus 2.8 mg/dl (2.5-4.9); Potassium 3.9 mmol/L (3.5-5.1); Total Protein 5.1 gm/dl (6.4-8.2)
--- NOTE | 2021-08-13 06:59 | Hospitalist Progress Note ---
Date of Service August 13, 2021 Assessment & Plan (1) Acute liver failure: Plan: 76-year-old female with past medical history high cholesterol and hypertension admitted to the hospital for acute liver failure, most likely 2/2 autoimmune hepatitis. Acute Liver Failure, some improvement - Completed NAC protocol on admission. No concerning alcohol use. Holding statin and ezetimibe. No concern for other hepatotoxic medications/supplements. - Autoimmune workup: LANCE positive, AMA positive, ASMA negative - Viral workup: Negative - Liver U/S showed cirrhosis without biliary obstruction - AFP noted to be positive at 10, - W/ elevated AMA, considered PBC. May also be overlap syndrome. However, no evidence of ductal dilatation on 08/04 US liver. Less likely PBC and in setting of improvement on steroids, will not trial UDCA. - GI consulted. - Liver biopsy completed 08/10/21 for concern of autoimmune hepatitis, path report is pending - Continue Prednisone 60 mg daily for now, started 08/10. Plan to taper after 1 week. - SPEP and liver-kidney microsomal antibodies, pending. - Depending on response to steroid, may consider transfer to tertiary liver center - Liver studies are improving. Continue to monitor with CMP and INR qAM. Adding direct bili to AM lab (no previous sample 2/2 slight hemolysis). hypervolemia - no echo in records - Patient is net + ~12L since admission. Trialed diuresis with 40mg IV lasix x1 08/12 and 08/13 - continue diuresis PRN - will be challenging with low serum albumin level Rhabdomyolysis, Elevated CPK - CPK level upto 20k - Source likely from the liver - After IV hydration - CPK down in 300s Weakness/Deconditioning - Secondary to acute liver failure and rhabdomyolysis - PT/OT ordered Simple Cystitis - Urine culture positive for Klebsiella - Tx w/ Ceftriaxone 1 g daily x5 days -- 08/07/21 to 08/12/21 Electrolyte abnormalities: Hypokalemia, resolved - Continue to monitor BMP qAM and replete as indicated Chronic Conditions Hypertension: Holding amlodipine. Blood pressure within normal limits. GERD: continue pantoprazole 40mg po qAM and pepcid 20mg BID prn Hyperlipidemia: Hold atorvastatin and ezetimibe due acute liver failure and elevated CPK. VTE prophylaxis - Heparin [id number] FEN/GI: regular diet. No IV fluids code status: full code Disposition: continue on med/tele OT: inpt rehab short term if not able to achieve goals PT: eval pending (2) Rhabdomyolysis: (3) UTI (urinary tract infection): (4) Acute hypokalemia: (5) GERD (gastroesophageal reflux disease): (6) Hypertension: (7) High cholesterol: Admission and Anticipated Discharge Date Admission Date: August 04, 2021 Supervising Physician Co-Signing Physician Notes Resident Physician Supervision Note: I independently interviewed and examined the patient and verified the keane history and physical, reviewed labs and image studies and agree with resident Dr. Beckman findings and care plan. Subjective Feeling well. Intermittent CHACON. Denies other symptoms. no fever, chest pain Review of Systems Review of Systems: All systems reviewed & are unremarkable except as noted in HPI & below Physical Exam Physical Exam: General: Grossly A&O. NAD. Cooperative. HEENT: Atraumatic, normocephalic. + scleral icterus. No obvious JVD. Pulm: Crackles at LLB, fainter or RLB. No respiratory distress. Cardiac: RRR, -mrg. Radial pulses intact and symmetrical. 2+ BLE. Abdominal: Nontender, nondistended, soft. Integ: +jaundice Results & Data Results & Data ([facility]) Vital Signs (Past 12 Hours) Vital Signs HR low-mid 90s. afeb. room air. BPs acceptable. Temp Pulse Pulse Resp BP Pulse Ox 08/13/21 04:25 36.8 C 92 H 17 112/61 94 08/13/21 00:00 88 08/12/21 23:00 37.1 C 90 16 130/67 93 08/12/21 19:27 36.6 C 96 H 22 130/66 95 Laboratory Results wbc 13.07->16.46->15.62. Hb stable 10.9. INR 1.5 stable. Na 131->132->135. Cr stable .91. BUN/Cr ~20-->31.2. T bili slight downtrending 13s->12.7->11.8. d bili not performed. AST 200s->100s-> 787. ALT slight downtrending 798->712. alk phos 464 stable. CK 20k-> downtrending ->304. alb 1.5L. Diagnostic Findings 08/04 ct abd nodular contour of liver, compatible w/ cirrhosis. 6mm hypodensity at pancreatic head. 08/10 liver biopsy pending. Resident Activity Tracking Resident Involvement: Resident Care Provided Care Provided: Adult Hospital Medicine
[2021-08-13] MEDS: predniSONE 20 MG TAB PO SCH (08:06)
[2021-08-13] MEDS: PANTOprazole 40 MG TAB PO SCH (08:06)
[2021-08-13] MEDS: HEPARIN SOD 5,000 UNIT/0.5 ML VIAL SQ SCH ×3 (10:17→20:04)
[2021-08-13] MEDS ORDERED: FUROSEMIDE 40 MG/4 ML VIAL IV STA (11:19)
[2021-08-13] MEDS ORDERED: POTASSIUM CHLORIDE CRTAB 20 MEQ TABCR PO STA (11:19)
[2021-08-13] MEDS ORDERED: FUROSEMIDE 40 MG/4 ML VIAL IV ONE (14:12)
[2021-08-14 05:19] LABS: INR 1.4 (0.9-1.1); Prothrombin Time 13.5 Seconds (9.0-12.0)
[2021-08-14 05:26] LABS: Hematocrit (blood only) 32.1 % (37-47); Hemoglobin 10.9 g/dL (12.0-16.0); Mean Corpuscular Hemoglobin 32.2 pg (25-34); Mean Corpuscular Volume 94.7 fL (80-100); Mean Platelet Volume 10.8 fL (7.4-10.4); Platelet Count 191 K/uL (130-400); RDW Coefficient of Variation 22.2 % (11.5-14.5); RDW Standard Deviation 76.1 fL (36.4-46.3); Red Blood Count 3.39 M/uL (4.2-5.4); White Blood Count 16.65 K/uL (4.8-10.8)
[2021-08-14 05:47] LABS: Albumin Globulin Ratio 0.4 (0.9-2); Albumin Level 1.4 gm/dl (3.4-5.0); BUN Creatinine Ratio 33.2 (10-20); Bilirubin,Total 10.8 mg/dl (0.2-1); Calcium 8.2 mg/dl (8.5-10.1); Est GFR (Non-African American) 63.8 ml/min; Globulin 3.7 gm/dl (2.5-4.0); Potassium 3.8 mmol/L (3.5-5.1); Total Protein 5.1 gm/dl (6.4-8.2)
[2021-08-14 06:34] LABS: Basophils # (auto) 0.01 K/uL (0-0.2); Basophils % (auto) 0.1 %; Eosinophils # (auto) 0.03 K/uL (0-0.5); Eosinophils % (auto) 0.2 %; Immature Granulocytes % (auto) 1.2 %; Lymphocytes # (auto) 3.84 K/uL (1.2-3.4); Lymphocytes % (auto) 23.1 %; Monocytes # (auto) 2.37 K/uL (0.11-0.59); Monocytes % (auto) 14.2 %; Neutrophils % (auto) 61.2 %; Polychromasia 1+; Target Cells 1+
[2021-08-14] MEDS: HEPARIN SOD 5,000 UNIT/0.5 ML VIAL SQ SCH ×2 (08:39→20:53)
[2021-08-14] MEDS: predniSONE 20 MG TAB PO SCH (08:39)
[2021-08-14] MEDS: PANTOprazole 40 MG TAB PO SCH (08:39)
--- NOTE | 2021-08-14 08:41 | Gastroenterology Progress Note ---
Date of Service August 14, 2021 Assessment & Plan (1) Acute liver failure: (2) Autoimmune hepatitis: Plan: Per discussion with Dr. Garcia, patient's liver biopsy demonstrates evidence of AIH, however further testing is being added to assess for any overlapping issue contributing to acute inflammation noted on biopsy. Patient has been on Prednisone 60 mg daily since 08/10/21 and LFTs are beginning to decline. -Await formal biopsy results -Continue to treat for AIH with Prednisone 60 mg daily through 08/16. After that dose is complete, would begin tapering by changing to 40 mg daily x 1 week, 30 mg daily x 2 weeks, and then a maintenance dose of 20 mg until outpatient hepatology evaluation (can consider Imuran at that point). -Continue to follow LFTs -Treatment of volume overload & supportive care per primary team Admission and Anticipated Discharge Date Admission Date: August 04, 2021 Supervising Physician Co-Signing Physician Notes I personally evaluated the patient and agree with the findings as documented by [Tanvi Amin, LEYDA] [FAVIAN Ramírez] Exam: abd: soft, nt, nd continue steroids would check serum IgG, IgM, and IgA levels at this time and would trend them over time to monitor treatment response Subjective Patient is a 76 yo female with acute liver failure. On Saturday 08/11, I did speak with Dr. Garcia of pathology who was reviewing her liver biopsy. Per our discussion, he noted that he indeed sees features of autoimmune hepatitis. He noted he plans to do further testing because in addition to findings of AIH, there was some acute inflammation that could suggest another overlapping issue. Patient has continued on Prednisone 60 mg daily. LFTs have begun to decline finally. T Bili is 10.8. AST 630, ALT 643, AP 435. INR 1.4. Patient has been treated for volume overload as well. She notes she is breathing better than previously. She denies acute issues otherwise. Jaundice is noted but improving. MELD currently 20 based on this morning's labs. Review of Systems Constitutional: no fever and no chills Respiratory: + cough (improving) and + dyspnea Cardiovascular: no chest pain Gastrointestinal: no abdominal pain Integumentary: + yellowing of the skin Psychiatric: no problem reported Physical Exam Constitutional: WD/WN, vitals as above Respiratory: normal respiratory effort Auscultation: + crackles Cardiovascular: Rate/Rhythm: + tachycardic Extremities: + edema Gastrointestinal (Abdomen): normal bowel sounds, soft, nontender, no hepatosplenomegaly Psychiatric: Orientation: alert and oriented x 3 Results & Data Results & Data ([facility]) Vital Signs (Past 12 Hours) Vital Signs Temp Pulse Pulse Pulse Resp BP Pulse Ox 08/14/21 08:27 95 H 18 122/69 96 08/14/21 04:00 36.3 C L 92 H 18 99/64 L 96 08/14/21 00:37 92 H 08/14/21 00:00 36.3 C L 85 18 105/56 L 96 PG Care Time/CCT Total # of Minutes Spent Total Time Spent with Patient: Total time spent is greater than 50% in coordination of care (as documented) at patient's floor/unit and/or counseling patient: Coding Level of Care Code 69706 Subseq Hosp Care Lvl 3 Diagnoses Acute liver failure K72.00 Autoimmune hepatitis K75.4
[2021-08-14] MEDS ORDERED: FUROSEMIDE 40 MG/4 ML VIAL IV ONE (09:45)
--- NOTE | 2021-08-14 12:45 | Hospitalist Progress Note ---
Date of Service August 14, 2021 Assessment & Plan (1) Acute liver failure: Plan: 76-year-old female with past medical history high cholesterol and hypertension admitted to the hospital for acute liver failure, most likely 2/2 autoimmune hepatitis. Acute Liver Failure, some improvement - Completed NAC protocol on admission. No concerning alcohol use. Holding statin and ezetimibe. No concern for other hepatotoxic medications/supplements. - Autoimmune workup: LANCE positive, AMA positive, ASMA negative - Viral workup: Negative - Liver U/S showed cirrhosis without biliary obstruction - AFP noted to be positive at 10, - W/ elevated AMA, considered PBC. May also be overlap syndrome. However, no evidence of ductal dilatation on 08/04 US liver. Less likely PBC and in setting of improvement on steroids, will not trial UDCA. - GI consulted. - Liver biopsy completed 08/10/21 consistent with autoimmune hepatitis, but being sent out to ensure no other co-existing issues, path report is pending - Continue Prednisone 60 mg daily for now, started 08/10. Plan to taper to 40 mg on 08/17. - SPEP and liver-kidney microsomal antibodies, pending. - Liver studies are improving. Continue to monitor with CMP and INR qAM. Will need hepatology f/u as outpatient. Hypervolemia - No echo in records. - Patient is net + ~12L since admission. Diuresis with 40mg IV Lasix x1 08/12, 08/13, and 08/14 - Continue diuresis PRN - Will add compression stockings in the AM when swelling is lower. Rhabdomyolysis, Elevated CPK - CPK level up to 20k - Source likely from the liver - After IV hydration - CPK down in 300s Weakness/Deconditioning - Secondary to acute liver failure and rhabdomyolysis - PT/OT ordered Simple Cystitis - Urine culture positive for Klebsiella - Tx w/ Ceftriaxone 1 g daily x5 days -- 08/07/21 to 08/12/21 Electrolyte abnormalities: Hypokalemia, resolved - Continue to monitor BMP qAM and replete as indicated Chronic Conditions Hypertension: Holding amlodipine. Blood pressure within normal limits today at 140/75. GERD: Continue pantoprazole 40mg po qAM and pepcid 20mg BID prn Hyperlipidemia: Hold atorvastatin and ezetimibe due acute liver failure and elevated CPK. VTE prophylaxis - Heparin Q59tros (2) Rhabdomyolysis: (3) UTI (urinary tract infection): (4) Acute hypokalemia: (5) GERD (gastroesophageal reflux disease): (6) Hypertension: (7) High cholesterol: Admission and Anticipated Discharge Date Admission Date: August 04, 2021 Subjective Doing well today. No major issues. Feels legs are pretty good in the AM, but then swell as the day goes on. Reports no fevers/chills, chest pain, shortness of breath, abdominal pain, nausea, or vomiting. Physical Exam Constitutional: WD/WN, vitals as above Eyes: EOM intact bilaterally; no conjunctival abnormality ENMT: external ear and nose normal, oropharynx normal Neck: trachea midline, no thyromegaly normal visual inspection Respiratory: normal respiratory effort, lungs clear to auscultation no respiratory distress Cardiovascular: RRR, no murmur, no edema Gastrointestinal (Abdomen): Inspection/Auscultation: abdomen normal to inspection; abdomen not distended Musculoskeletal: no cyanosis or clubbing, extremities motor strength 5/5 Skin: no rashes, warm and dry Neurologic: moves all extremities and awake Psychiatric: Orientation: alert, oriented to person and cooperative Results & Data Results & Data ([facility]) Vital Signs (Past 12 Hours) Vital Signs Temp Pulse Pulse Resp BP Pulse Ox 08/14/21 08:41 36.7 C 08/14/21 08:27 95 H 18 122/69 96 08/14/21 04:00 36.3 C L 92 H 18 99/64 L 96 PG Care Time/CCT Total # of Minutes Spent Total Time Spent with Patient: Total time spent is greater than 50% in coordination of care (as documented) at patient's floor/unit and/or counseling patient: Coding Level of Care Code 92013 Subseq Hosp Care Lvl 2 Diagnoses Acute liver failure K72.00 Rhabdomyolysis M62.82 UTI (urinary tract infection) N39.0 Acute hypokalemia E87.6 GERD (gastroesophageal reflux disease) K21.9 Hypertension I10 High cholesterol E78.00
[2021-08-14 16:36] LABS: Alpha 1 Globulin 0.3 g/dL (0.2-0.3); Alpha 2 Globulin 0.5 g/dL (0.5-0.9); Beta-1-Globulin 0.3 g/dL (0.4-0.6); Beta-2-Globulin 0.2 g/dL (0.2-0.5); Gamma Globulin 1.2 g/dL (0.8-1.7); Liver,Kidney Microsome IgG Ab <=20.0 U (<=20.0); Monoclonal Protein Band 1 DNR g/dL (NONE DETECTED); Monoclonal Protein Band 2 DNR g/dL (NONE DETECTED); Monoclonal Protein Band 3 DNR g/dL (NONE DETECTED); Total Protein 4.5 g/dL (6.1-8.1)
[2021-08-15 05:22] LABS: Hematocrit (blood only) 31.8 % (37-47); Hemoglobin 10.7 g/dL (12.0-16.0); Mean Corpuscular Hemoglobin 31.7 pg (25-34); Mean Corpuscular Hgb Conc 33.6 g/dL (32-36); Mean Corpuscular Volume 94.1 fL (80-100); Mean Platelet Volume 10.8 fL (7.4-10.4); Platelet Count 175 K/uL (130-400); RDW Coefficient of Variation 22.2 % (11.5-14.5); RDW Standard Deviation 75.3 fL (36.4-46.3); Red Blood Count 3.38 M/uL (4.2-5.4); White Blood Count 16.61 K/uL (4.8-10.8)
[2021-08-15 05:37] LABS: INR 1.4 (0.9-1.1); Prothrombin Time 13.7 Seconds (9.0-12.0)
[2021-08-15 05:51] LABS: Albumin Globulin Ratio 0.4 (0.9-2); Albumin Level 1.4 gm/dl (3.4-5.0); BUN Creatinine Ratio 32.1 (10-20); Creatinine Clr Calc Pharmacy 56.1 ml/min; Est GFR (African American) 64.3 ml/min; Est GFR (Non-African American) 55.5 ml/min; Globulin 3.6 gm/dl (2.5-4.0); Potassium 3.5 mmol/L (3.5-5.1)
[2021-08-15] MEDS: HEPARIN SOD 5,000 UNIT/0.5 ML VIAL SQ SCH ×2 (08:32→20:59)
[2021-08-15] MEDS: predniSONE 20 MG TAB PO SCH (08:32)
[2021-08-15] MEDS: PANTOprazole 40 MG TAB PO SCH (08:32)
--- NOTE | 2021-08-15 10:17 | Gastroenterology Progress Note ---
Date of Service August 15, 2021 Assessment & Plan (1) Autoimmune hepatitis: (2) Acute liver failure: Plan: -Continue steroids as per taper outline in GI progress note on 08/14/21 -Given itching and possibility for PBC, will add Ursodiol 600 mg BID and patient can follow-up with hepatology at [place] to determine whether she has an overlap of PBC & AIH. -Continue to monitor LFTs -Volume overload treatment per primary team Admission and Anticipated Discharge Date Admission Date: August 04, 2021 Supervising Physician Co-Signing Physician Notes I personally evaluated the patient and agree with the findings as documented by Tanvi Amin, PAC Exam: abd: soft, nt, nd Subjective Patient is a 76 yo female with acute liver failure. Biopsies returned with characteristics of AIH. She has been on Steroids since 08/10/21. Her LFTs are improving. T Bili today is 10.0. AST 525. ALT 569. Alk phos 410. Discussion with pathologist Dr. Garcia--patient's biopsies have features of AIH, and though AMA is elevated, no path findings of PBC are noted. There is acute inflammation not consistent with AIH, so Dr. Garcia did raise the question of an overlap. Pathology is being sent out to [place] for another opinion and this is where the patient will be seeing hepatology in the coming weeks. Emiliana reports some itching today. Her weight is up significantly from admission. Review of Systems Constitutional: no fever and no chills Cardiovascular: no chest pain Gastrointestinal: no abdominal pain Integumentary: + yellowing of the skin Psychiatric: no problem reported Physical Exam Constitutional: WD/WN, vitals as above well developed; no acute distress Respiratory: normal respiratory effort, lungs clear to auscultation normal respiratory effort; no respiratory distress Auscultation: + crackles Cardiovascular: Rate/Rhythm: + tachycardic Heart Sounds: + murmur Extremities: + edema Gastrointestinal (Abdomen): normal bowel sounds, soft, nontender, no hepatosplenomegaly Skin: + jaundice (improving) Psychiatric: Orientation: alert and oriented x 3 Results & Data Results & Data ([facility]) Vital Signs (Past 12 Hours) Vital Signs Temp Pulse Resp BP Pulse Ox 08/15/21 07:36 36.6 C 88 21 132/63 95 08/15/21 03:46 36.5 C 91 H 18 120/61 95 08/14/21 23:18 36.5 C 88 18 118/65 93 PG Care Time/CCT Total # of Minutes Spent Total Time Spent with Patient: Total time spent is greater than 50% in coordination of care (as documented) at patient's floor/unit and/or counseling patient: Coding Level of Care Code 92564 Subseq Hosp Care Lvl 3 Diagnoses Autoimmune hepatitis K75.4 Acute liver failure K72.00
[2021-08-15 10:31] LABS: Alpha 1 Globulin 0.3 g/dL (0.2-0.3); Alpha 2 Globulin 0.5 g/dL (0.5-0.9); Beta-1-Globulin 0.3 g/dL (0.4-0.6); Beta-2-Globulin 0.2 g/dL (0.2-0.5); Gamma Globulin 1.2 g/dL (0.8-1.7); Monoclonal Protein Band 1 DNR g/dL (NONE DETECTED); Monoclonal Protein Band 2 DNR g/dL (NONE DETECTED); Monoclonal Protein Band 3 DNR g/dL (NONE DETECTED); Total Protein 4.5 g/dL (6.1-8.1)
--- NOTE | 2021-08-15 12:12 | Hospitalist Progress Note ---
Date of Service August 15, 2021 Assessment & Plan (1) Acute liver failure: Plan: 76-year-old female with past medical history high cholesterol and hypertension admitted to the hospital for acute liver failure, most likely 2/2 autoimmune hepatitis. Acute Liver Failure, some improvement - Completed NAC protocol on admission. No concerning alcohol use. Holding statin and ezetimibe. No concern for other hepatotoxic medications/supplements. - Autoimmune workup: LANCE positive, AMA positive, ASMA negative, AKL negative. - Viral workup: Negative - Liver U/S showed cirrhosis without biliary obstruction - AFP noted to be positive at 10. - W/ elevated AMA, considered PBC. May also be overlap syndrome. However, no evidence of ductal dilatation on 08/04 US liver. Less likely PBC and in setting of improvement on steroids. - GI consulted. - Liver biopsy completed 08/10/21 consistent with autoimmune hepatitis, but being sent out to ensure no other co-existing issues, path report is pending - Continue Prednisone 60 mg daily for now, started 08/10. Plan to taper to 40 mg on 08/17. - SPEP pending. - Liver studies are improving. Continue to monitor with CMP and INR qAM. Will need hepatology f/u as outpatient. Hypervolemia - No echo in records. - Patient is net + ~12L since admission. Diuresis with 40mg IV Lasix x1 08/12, 08/13, and 08/14 - Continue diuresis PRN - Added compression stockings in the AM. Rhabdomyolysis, Elevated CPK - CPK level up to 20k - Source likely from the liver - After IV hydration - CPK down in 300s Weakness/Deconditioning - Secondary to acute liver failure and rhabdomyolysis - PT/OT ordered Simple Cystitis - Urine culture positive for Klebsiella - Tx w/ Ceftriaxone 1 g daily x5 days -- 08/07/21 to 08/12/21 Electrolyte abnormalities: Hypokalemia, resolved - Continue to monitor BMP qAM and replete as indicated Chronic Conditions Hypertension: Holding amlodipine. Blood pressure within normal limits today at 120/70. GERD: Continue pantoprazole 40mg po qAM and pepcid 20mg BID prn Hyperlipidemia: Hold atorvastatin and ezetimibe due acute liver failure and elevated CPK. VTE prophylaxis - Heparin O99tusa (2) Rhabdomyolysis: (3) UTI (urinary tract infection): (4) Acute hypokalemia: (5) GERD (gastroesophageal reflux disease): (6) Hypertension: (7) High cholesterol: Admission and Anticipated Discharge Date Admission Date: August 04, 2021 Subjective Doing well today. Some itching per GI note, but not mentioned to me. Reports no fevers/chills, chest pain, shortness of breath, abdominal pain, nausea, or vomiting. Physical Exam Constitutional: WD/WN, vitals as above Eyes: EOM intact bilaterally; no conjunctival abnormality ENMT: external ear and nose normal, oropharynx normal Neck: trachea midline, no thyromegaly normal visual inspection Respiratory: normal respiratory effort, lungs clear to auscultation no respiratory distress Cardiovascular: RRR, no murmur, no edema Gastrointestinal (Abdomen): Inspection/Auscultation: abdomen normal to inspection; abdomen not distended Musculoskeletal: no cyanosis or clubbing, extremities motor strength 5/5 Skin: no rashes, warm and dry Neurologic: moves all extremities and awake Psychiatric: Orientation: alert, oriented to person and cooperative Results & Data Results & Data ([facility]) Vital Signs (Past 12 Hours) Vital Signs Temp Pulse Pulse Resp BP Pulse Ox 08/15/21 11:27 36.5 C 97 H 24 120/69 91 08/15/21 08:00 87 08/15/21 07:36 36.6 C 88 21 132/63 95 08/15/21 03:46 36.5 C 91 H 18 120/61 95 PG Care Time/CCT Total # of Minutes Spent Total Time Spent with Patient: Total time spent is greater than 50% in coordination of care (as documented) at patient's floor/unit and/or counseling patient: Coding Level of Care Code 04833 Subseq Hosp Care Lvl 2 Diagnoses Acute liver failure K72.00 Rhabdomyolysis M62.82 UTI (urinary tract infection) N39.0 Acute hypokalemia E87.6 GERD (gastroesophageal reflux disease) K21.9 Hypertension I10 High cholesterol E78.00
[2021-08-15] MEDS: ursodioL 300 MG CAP PO SCH (17:07)
[2021-08-16 06:15] LABS: Hematocrit (blood only) 32.7 % (37-47); Hemoglobin 11.2 g/dL (12.0-16.0); Mean Corpuscular Hgb Conc 34.3 g/dL (32-36); Mean Corpuscular Volume 93.4 fL (80-100); Mean Platelet Volume 10.3 fL (7.4-10.4); Platelet Count 184 K/uL (130-400); RDW Coefficient of Variation 22.1 % (11.5-14.5); RDW Standard Deviation 73.7 fL (36.4-46.3); White Blood Count 18.42 K/uL (4.8-10.8)
[2021-08-16 06:24] LABS: INR 1.3 (0.9-1.1)
[2021-08-16 07:29] LABS: Albumin Globulin Ratio 0.4 (0.9-2); Albumin Level 1.4 gm/dl (3.4-5.0); BUN Creatinine Ratio 33.8 (10-20); Calcium 8.2 mg/dl (8.5-10.1); Creatinine Clr Calc Pharmacy 63.1 ml/min; Est GFR (Non-African American) 63.8 ml/min; Globulin 3.8 gm/dl (2.5-4.0); Total Protein 5.2 gm/dl (6.4-8.2)
[2021-08-16 08:25] LABS: Potassium 3.5 mmol/L (3.5-5.1)
[2021-08-16] MEDS: ursodioL 300 MG CAP PO SCH ×2 (09:11→17:10)
[2021-08-16] MEDS: predniSONE 20 MG TAB PO SCH (09:12)
[2021-08-16] MEDS: HEPARIN SOD 5,000 UNIT/0.5 ML VIAL SQ SCH ×2 (09:12→19:56)
[2021-08-16] MEDS: PANTOprazole 40 MG TAB PO SCH (09:12)
--- NOTE | 2021-08-16 14:24 | Hospitalist Progress Note ---
Date of Service August 16, 2021 Assessment & Plan (1) Acute liver failure: Plan: 76-year-old female with past medical history high cholesterol and hypertension admitted to the hospital for acute liver failure, most likely 2/2 autoimmune hepatitis. Acute Liver Failure, some improvement - Completed NAC protocol on admission. No concerning alcohol use. Holding statin and ezetimibe. No concern for other hepatotoxic medications/supplements. - Autoimmune workup: LANCE positive, AMA positive, ASMA negative, AKL negative. - Viral workup: Negative - Liver U/S showed cirrhosis without biliary obstruction - AFP noted to be positive at 10. - W/ elevated AMA, considered PBC. May also be overlap syndrome. However, no evidence of ductal dilatation on 08/04 US liver. Less likely PBC and in setting of improvement on steroids. - GI consulted. - Liver biopsy completed 08/10/21 consistent with autoimmune hepatitis, but being sent out to ensure no other co-existing issues, path report is pending - Taper prednisone to 40 mg on 08/17. - SPEP pending. - Ursodiol is helping itching, so will continue on discharge. - Liver studies are improving. Continue to monitor with CMP and INR qAM. Will need hepatology f/u as outpatient. - At this point, GI has signed off. Medically stable for discharge. Hypervolemia - No echo in records. - Patient is net + ~12L since admission. Diuresis with 40mg IV Lasix x1 08/12, 08/13, and 08/14 - Continue diuresis PRN - Added compression stockings in the AM, but too painful. Will allow to self- diurese. Rhabdomyolysis, Elevated CPK - CPK level up to 20k - Source likely from the liver - After IV hydration - CPK down in 300s Weakness/Deconditioning - Secondary to acute liver failure and rhabdomyolysis - PT/OT ordered -> Plan for home with home health. Simple Cystitis - Urine culture positive for Klebsiella - Tx w/ Ceftriaxone 1 g daily x5 days -- 08/07/21 to 08/12/21 Electrolyte abnormalities: Hypokalemia, resolved - Continue to monitor BMP qAM and replete as indicated Chronic Conditions Hypertension: Holding amlodipine. Blood pressure within normal limits today at 120/70. GERD: Continue pantoprazole 40mg po qAM and pepcid 20mg BID prn Hyperlipidemia: Hold atorvastatin and ezetimibe due acute liver failure and elevated CPK. VTE prophylaxis - Heparin [id number] (2) Rhabdomyolysis: (3) UTI (urinary tract infection): (4) Acute hypokalemia: (5) GERD (gastroesophageal reflux disease): (6) Hypertension: (7) High cholesterol: Admission and Anticipated Discharge Date Admission Date: August 04, 2021 Subjective No change today. Legs are doing some better. Reports no fevers/chills, chest pain, shortness of breath, abdominal pain, nausea, or vomiting. Physical Exam Constitutional: WD/WN, vitals as above Eyes: EOM intact bilaterally; no conjunctival abnormality ENMT: external ear and nose normal, oropharynx normal Neck: trachea midline, no thyromegaly normal visual inspection Respiratory: normal respiratory effort, lungs clear to auscultation no respiratory distress Cardiovascular: RRR, no murmur, no edema Gastrointestinal (Abdomen): Inspection/Auscultation: abdomen normal to inspection; abdomen not distended Musculoskeletal: no cyanosis or clubbing, extremities motor strength 5/5 Skin: no rashes, warm and dry Neurologic: moves all extremities and awake Psychiatric: Orientation: alert, oriented to person and cooperative Results & Data Results & Data ([facility]) Vital Signs (Past 12 Hours) Vital Signs Temp Pulse Pulse Pulse Resp BP Pulse Ox 08/16/21 11:33 97 H 16 125/72 95 08/16/21 08:00 36.7 C 85 87 18 119/77 95 08/16/21 03:32 36.5 C 86 20 97/64 L 96 PG Care Time/CCT Total # of Minutes Spent Total Time Spent with Patient: Total time spent is greater than 50% in coordination of care (as documented) at patient's floor/unit and/or counseling patient: Coding Level of Care Code 44052 Subseq Hosp Care Lvl 2 Diagnoses Acute liver failure K72.00 Rhabdomyolysis M62.82 UTI (urinary tract infection) N39.0 Acute hypokalemia E87.6 GERD (gastroesophageal reflux disease) K21.9 Hypertension I10 High cholesterol E78.00
[2021-08-17 05:09] LABS: Hematocrit (blood only) 33.4 % (37-47); Hemoglobin 11.2 g/dL (12.0-16.0); Mean Corpuscular Hemoglobin 31.9 pg (25-34); Mean Corpuscular Hgb Conc 33.5 g/dL (32-36); Mean Corpuscular Volume 95.2 fL (80-100); Mean Platelet Volume 10.9 fL (7.4-10.4); Platelet Count 205 K/uL (130-400); RDW Coefficient of Variation 21.8 % (11.5-14.5); RDW Standard Deviation 74.4 fL (36.4-46.3); Red Blood Count 3.51 M/uL (4.2-5.4); White Blood Count 15.49 K/uL (4.8-10.8)
[2021-08-17 05:16] LABS: INR 1.3 (0.9-1.1); Prothrombin Time 13.2 Seconds (9.0-12.0)
[2021-08-17 05:55] LABS: Albumin Globulin Ratio 0.4 (0.9-2); Albumin Level 1.4 gm/dl (3.4-5.0); BUN Creatinine Ratio 33.7 (10-20); Creatinine Clr Calc Pharmacy 61.7 ml/min; Est GFR (Non-African American) 62.2 ml/min; Globulin 3.8 gm/dl (2.5-4.0); Magnesium 2.2 mg/dl (1.8-2.4); Potassium 3.7 mmol/L (3.5-5.1); Total Protein 5.2 gm/dl (6.4-8.2)
[2021-08-17] MEDS: ursodioL 300 MG CAP PO SCH (07:09)
[2021-08-17] MEDS ORDERED: predniSONE 20 MG TAB PO SCH (09:00)
[2021-08-17] MEDS: PANTOprazole 40 MG TAB PO SCH (09:04)
[2021-08-17] MEDS: HEPARIN SOD 5,000 UNIT/0.5 ML VIAL SQ SCH (09:04)
--- NOTE | 2021-08-17 18:22 | Discharge Summary ---
Date of Service August 17, 2021 Admission HPI Per Admitting Provider Nasrin Ramirez is a 76-year-old female with no prior history of liver disease who presents to the ER with jaundice. She reports chronic bronchitis but possibly worsening cough and cold symptoms in the last 3 to 4 weeks. No significant sore throat. She reports having a home test for Covid 19 2 weeks ago which was positive, however PCR testing 7 days ago was negative. For the past week she is getting increasingly fatigued. Over the last 2 days she has noted significant yellowing of her skin and eyes. She reports no recent alcohol use (approximately 1 month ago). She denies any fever, chills, urinary symp toms, abdominal pain, change in bowels, melena, bright red blood in stool. In the ER LFTs noted to be significantly elevated with total bilirubin of 16.2. Fortunately platelets within normal limits, INR 1.4. Ultrasound liver did not show any obstructing cause. She was referred to medicine for admission ongoing management of acute liver failure. Principal Diagnosis Likely autoimmune hepatitis Discharge Exam Constitutional WD/WN, vitals as above Eyes EOM intact bilaterally; no conjunctival abnormality ENMT external ear and nose normal, oropharynx normal Neck trachea midline, no thyromegaly normal visual inspection Respiratory normal respiratory effort, lungs clear to auscultation no respiratory distress Cardiovascular RRR, no murmur, no edema Gastrointestinal (Abdomen) Inspection/Auscultation: abdomen normal to inspection; abdomen not distended Musculoskeletal no cyanosis or clubbing, extremities motor strength 5/5 Skin no rashes, warm and dry Neurologic moves all extremities and awake Psychiatric Orientation: alert, oriented to person and cooperative Discharge Data Allergies Allergy/AdvReac Type Severity Reaction Status Date / Time No Known Allergies Allergy Unknown Verified 08/04/21 16:27 Consultations 08/04/21 16:17 ED Decision to Admit Stat 08/04/21 22:07 Consult Gastroenterology Routine Ordered Studies 08/04/21 15:18 US liver Stat 08/04/21 15:23 US venous doppler LE BI Stat 08/04/21 19:43 CT abdomen pelvis wo/w con Urgent 08/10/21 09:56 US biopsy liver Urgent Hospital Course (1) Acute liver failure: 76-year-old female with past medical history high cholesterol and hypertension admitted to the hospital for acute liver failure, most likely 2/2 autoimmune hepatitis. Acute Liver Failure, some improvement - Completed NAC protocol on admission. No concerning alcohol use. Holding statin and ezetimibe. No concern for other hepatotoxic medications/supplements. - Autoimmune workup: LANCE positive, AMA positive, ASMA negative, AKL negative. - Viral workup: Negative - Liver U/S showed cirrhosis without biliary obstruction - AFP noted to be positive at 10. - W/ elevated AMA, considered PBC. May also be overlap syndrome. However, no evidence of ductal dilatation on 08/04 US liver. Less likely PBC and in setting of improvement on steroids. - GI consulted. - Liver biopsy completed 08/10/21 consistent with autoimmune hepatitis, but being sent out to ensure no other co-existing issues, path report is pending - Taper prednisone to 40 mg on 08/17. - SPEP pending. - Ursodiol is helping itching, so will continue on discharge. - Liver studies are improving. Continue to monitor with CMP and INR qAM. Will need hepatology f/u as outpatient. --> Will f/u with [facility] as well as [facility]. Discharged on steroid taper per GI. Hypervolemia - No echo in records. - Patient is net + ~12L since admission. Diuresis with 40mg IV Lasix x1 08/12, 08/13, and 08/14 - Continue diuresis PRN - Added compression stockings in the AM, but too painful. Will allow to self- diurese. Rhabdomyolysis, Elevated CPK - CPK level up to 20k - Source likely from the liver - After IV hydration - CPK down in 300s Weakness/Deconditioning - Secondary to acute liver failure and rhabdomyolysis - PT/OT ordered -> Plan for home with home health. Simple Cystitis - Urine culture positive for Klebsiella - Tx w/ Ceftriaxone 1 g daily x5 days -- 08/07/21 to 08/12/21 Electrolyte abnormalities: Hypokalemia, resolved - Continue to monitor BMP qAM and replete as indicated Chronic Conditions Hypertension: Holding amlodipine. Blood pressure within normal limits today at 120/70. GERD: Continue pantoprazole 40mg po qAM and pepcid 20mg BID prn Hyperlipidemia: Hold atorvastatin and ezetimibe due acute liver failure and elevated CPK. VTE prophylaxis - Heparin [id number] (2) Rhabdomyolysis: (3) UTI (urinary tract infection): (4) Acute hypokalemia: (5) GERD (gastroesophageal reflux disease): (6) Hypertension: (7) High cholesterol: Total Time Total Time Spent Total Time Spent (In Minutes): 35 Discharge Plan Discharge Items Patient Disposition: Home - Home Health Services Reason For Visit: ACUTE LIVER FAILURE Discharge Diagnosis: Acute liver injury; likely autoimmune hepatitis Activity: Resume your previous activity Non-emergency contact: Primary Care Provider and [employer] Manager Call non-emergency contact if: your symptoms worsen Follow-up/Referrals: Antonio Betancourt DO [Physician] - (Dr. Betancourt is unavailable. Follow up appointment scheduled with FAVIAN Ramírez.) Mariel Quiroz CRNP [Nurse Practitioner] - 08/23/21 3:00 pm (Dr. Betancourt is unavailable. Please follow up with FAVIAN Ramírez on Saturday08/23/21 at 3:00 pm. Please arrive to the office at 2:45 pm for your appointment. If you are unable to keep this appointment, please call the office to reschedule at [phone].) Jasiel Sauceda MD [Primary Care Provider] - 08/24/21 1:50 pm (Please follow up with Dr. Sauceda on 08/24/21 at 1:50 pm. Please arrive to the office at 1:35 pm for your appointment. If you are unable to keep this appointment, please call the office to reschedule at [phone].) Diet: Heart Healthy Addtl Attending Provider Instructions: Ms. Ramirez, You were admitted to the hospital for liver issues that we believe are coming from autoimmune hepatitis. We started you on steroids, and luckily, your liver functions are all gradually returning to normal. Please continue the steroid taper as follows: Prednisone 40 mg (4 tabs) for 6 more days. On , reduce the dose to 30 mg (3 tabs) daily for 2 weeks. On , reduce the dose to 20 mg (2 tabs) daily until further notice. You will likely need to start an immunosuppressive medication prior to tapering the steroid dose further. Please see Dr. Betancourt and the [place] hepatology team on follow-up. Pending Studies at Discharge: No Stand-Alone Forms: My [facility], Smoking Cessation Medications and DC Order Prescriptions: New pantoprazole 40 mg Tablet,Delayed Release (Dr/Ec) 40 mg PO QAM Qty: 30 RF: 0 ursodiol 300 mg Capsule 600 mg PO BIDM Qty: 120 RF: 0 prednisone 10 mg tablet 40 mg PO DAILY Qty: 80 RF: 0 Discontinued atorvastatin 80 mg tablet 80 mg PO DAILY RF: 0 amlodipine 5 mg tablet 5 mg PO DAILY RF: 0 ezetimibe 10 mg tablet 10 mg PO DAILY RF: 0 Discharge Orders: Discharge Order (Routine); Ordered 08/17/21 Ordered By: Bro Hubbard/Other Patient Handouts: Protonix Oral Tablet 40 mg, Ursodiol Oral Capsule 300 mg Admission Data Admit Date/Time: 08/04/21 19:24 Attending Provider: Bro Dahl Admit Provider: Dominic Cruz Primary Care Provider: Jasiel Sauceda Other Providers: Antonio Betancourt ; Bro Dahl ; [place] Other Interventions: Discharge Summary Assessment (RN) Last Done: 08/17/21 14:35 Coding Level of Care Code D/C DAY MANAGEMENT >30 MINS Diagnoses Acute liver failure K72.00 Rhabdomyolysis M62.82 UTI (urinary tract infection) N39.0 Acute hypokalemia E87.6 GERD (gastroesophageal reflux disease) K21.9 Hypertension I10 High cholesterol E78.00
== END 2021-08-17 16:22 | disposition home health service (06) | DRG 441 ==
LOC: ED 12:41 → EDINP 19:24 → SUATTDRO 19:24 → 1E 08-05 23:29

== ENCOUNTER 2021-08-24 17:38 | Observation (INO) ==
--- NOTE | 2021-08-24 17:44 | Emergency Department Note ---
Impression & Plan Physical deconditioning, Autoimmune hepatitis, Edema ED Provider Note NAME: ALEKSEY DORAN AGE: 76 SEX: F ARRIVES VIA: Ambulance INFORMANT: Patient ED PROVIDER(S): Pollo Salcedo MD CHIEF COMPLAINT: Weakness, edema, shortness of breath, referred for inpatient rehab placement. PLAN: Disposition: Admit MEDICAL DECISION MAKING: The patient is a pleasant 76-year-old woman with a past medical history of hypertension, hyperlipidemia with recent Hospitalization at [facility] for newly diagnosed suspected autoimmune hepatitis from 08/04-08/17. The patient reports that since being home she has progressively become weaker and more short of breath from the baseline short of breath she had when leaving the hospital. She reports that her edema has also progressed. She reports she contacted her PCPs office today and was referred to the emergency department so she may be admitted to then be placed into rehab. She reports at the time of her discharge they were attempting to place her into rehab but there were no beds available. However, given she lives by herself and does not have family who can be present 18/03 to help her particularly since she cannot get up by herself from a chair she feels she can no longer function safely at home. She denies any fevers, chills, nausea, vomiting, diarrhea or urinary symptoms. On arrival the patient is fatigued appearing but no acute distress, afebrile with stable vital signs. Her O2 saturation is 98% on room air. She appears overtly edematous with 3+ bilateral lower extremity pitting edema and generalized abdominal anasarca. She has mild scleral icterus and jaundice she reports has improved. EKG without overt acute ischemia. Chest x-ray negative for acute cardiopul monary process. WBC 14.8K, nonspecific and in setting of the patient's recent steroid treatment. Hemoglobin and platelets within normal limits. INR is 1.2 improved from prior. LFTs are downtrending from prior admission. Troponin negative/undetectable. BNP within normal limits. Lipase is not elevated. UA without evidence of infection. Covid-19 RNA, NAAT negative. Case was discussed with Dr. Ennis, [facility] [place], who will evaluate the patient for admission. Triage Nursing notes reviewed and agree them. Prior medical records reviewed Vital Signs: reviewed and remarkable for no significant abnormalities Differential diagnosis: Infection, dehydration, metabolic abnormality, hypo/hyperglycemia, electrolyte disturbance, anemia, hypoxia, cardiac sources, intracerebral event, toxicologic, neurologic, as well as other pathologies. ER treatment provided: See below. Diagnostics interpreted by me: ECG: Normal sinus rhythm, 89 bpm, no ectopy, nonspecific ST abnormality, no overt ST elevation. QTc 428, QRS 86. Cardiac Monitoring: An order for continuous cardiac monitoring was placed and demonstrated normal sinus rhythm, 89 bpm, no ectopy. Laboratory studies: See below Imaging studies: See below Consultation(s): Case was discussed with Dr. Ennis, [facility] [place], who will evaluate the patient for admission. HPI: The patient is a pleasant 76-year-old woman with a past medical history of hypertension, hyperlipidemia with recent Hospitalization at [facility] for newly diagnosed suspected autoimmune hepatitis from 08/04-08/17. The patient reports that since being home she has progressively become weaker and more short of breath from the baseline short of breath she had when leaving the hospital. She reports that her edema has also progressed. She reports she contacted her PCPs office today and was referred to the emergency department so she may be admitted to then be placed into rehab. She reports at the time of her discharge they were attempting to place her into rehab but there were no beds available. However, given she lives by herself and does not have family who can be present / to help her particularly since she cannot get up by herself from a chair she feels she can no longer function safely at home. She denies any fevers, chills, nausea, vomiting, diarrhea or urinary symptoms. ROS: See above HPI for pertinent positives & negatives. A total of 10 systems reviewed and were otherwise negative. PAST MEDICAL HISTORY:See Below PAST SURGICAL HISTORY:See Below FAMILY HISTORY:See Below SOCIAL HISTORY:See Below HOME MEDICATIONS:See Below ALLERGIES:See Below VITALS:See Below PHYSICAL EXAMINATION: GENERAL: Awake, alert, fatigued-appearing, in no distress HENT: Normocephalic, atraumatic. Oropharynx unremarkable. EYES: Normal conjunctiva. Sclera mildly icteric. NECK: Supple. No nuchal rigidity. FROM. No JVD. RESPIRATORY: Diminished at the bases. Otherwise clear to auscultation. CARDIAC: Regular rate, normal rhythm. 3/6 systolic murmur. Extremities warm and well perfused. Pulses equal. ABDOMEN: Distended but soft. Generalized ansarca. No tenderness to palpation. No rebound or guarding. No masses. RECTAL: Deferred. MUSCULOSKELETAL: Chest examination reveals no tenderness. The back is symmetrical on inspection without obvious abnormality. There is no CVA tenderness to palpation. No joint edema. LOWER EXTREMITIES: Calves are equal size bilaterally and non-tender. 3 BLE pitting edema. No discoloration. NEURO: Normal sensorium. No sensory or motor deficits noted. SKIN: Mild scleral icterus and jaundice she reports has improved. Scattered spider angiomata. Pollo Salcedo MD Past Med/Surg History Medical History Acute hypokalemia Autoimmune hepatitis GERD (gastroesophageal reflux disease) High cholesterol Hypertension Pancreatitis Rhabdomyolysis Social History Smoking Status: Former smoker Second Hand Exposure: No; Do You Dip or Chew Tobacco: No; Tobacco Cessation Education Requested by Patient: No Hx Alcohol Use: Yes Alcohol type: hard liquor Hx Substance Use: No Preferred Language: Lao Communication Ability: Effective Marine Firer Required: No Beliefs That Will Affect Care: None marital status: Current Living Situation: Alone Other Information That Helps Us Care for You: No Feels Safe at Home: Yes Safety Concerns: Feels Safe At This Time Assistive Devices: None Allergies Allergies Allergy/AdvReac Type Severity Reaction Status Date / Time No Known Allergies Allergy Unknown Verified 08/24/21 19:17 Home Meds Previous Rx's Medication Instructions Recorded pantoprazole 40 mg tablet,delayed 40 mg PO QAM #30 tab 08/17/21 release prednisone 10 mg tablet 40 mg PO DAILY #80 tab 08/17/21 ursodiol 300 mg capsule 600 mg PO BIDM #120 cap 08/17/21 Results & Data (ED) Vital Signs Vital Signs - 24 hr 08/24/21 17:45 08/24/21 18:17 08/24/21 19:00 Temperature 36.7 C Temperature Source Oral Pulse Rate 98 H Pulse Rate [Apical] 98 H 84 Pulse Rhythm [Apical] Regular Pulse Strength [Apical] Normal Respiratory Rate 29 H 20 Respiratory Effort / Characteristics Non-Labored Non-Labored Spontaneous Respiratory Depth Normal Normal Respiratory Pattern Regular Blood Pressure 142/76 H Blood Pressure [Right Arm] 142/76 H 125/75 Blood Pressure Mean 98 Blood Pressure Mean [Right Arm] 98 91 Blood Pressure Position Sitting Blood Pressure Position [Right Arm] Sitting Pulse Oximetry 98 96 96 Oxygen Delivery Method Room Air Room Air Room Air Sepsis Recent Fever Within 48 Hours No Sepsis New/Unexplained Change in Mental Status No Sepsis Action Taken by Nursing No Action Required Laboratory Data Attestation: I reviewed the patient's lab results. Result diagrams: 08/24/21 18:02 08/24/21 18:02 Lab Results 08/24/21 08/24/21 08/24/21 Range/Units 18:02 18:02 18:02 WBC 14.89 H (4.8-10.8) K/uL RBC 3.84 L (4.2-5.4) M/uL Hgb 12.4 (12.0-16.0) g/dL Hct 36.3 L (37-47) % MCV 94.5 (80-100) fL MCH 32.3 (25-34) pg MCHC 34.2 (32-36) g/dL RDW Std Deviation 72.4 H (36.4-46.3) fL RDW Coeff of Janet 21.2 H (11.5-14.5) % Plt Count 169 (130-400) K/uL MPV 10.4 (7.4-10.4) fL Immature Gran % (Auto) 1.3 % Neut % (Auto) 87.5 % Lymph % (Auto) 6.9 % [place] % (Auto) 4.1 % Eos % (Auto) 0.1 % Baso % (Auto) 0.1 % Neut # (Auto) 13.05 H (1.4-6.5) K/uL Lymph # (Auto) 1.02 L (1.2-3.4) K/uL [place] # (Auto) 0.61 H (0.11-0.59) K/uL Eos # (Auto) 0.01 (0-0.5) K/uL Baso # (Auto) 0.01 (0-0.2) K/uL Immature Gran # (Auto) 0.19 H (0.00-0.02) K/uL Anisocytosis Present Target Cells 1+ Echinocytes 1+ PT 12.1 H (9.0-12.0) Seconds INR 1.2 H (0.9-1.1) Sodium 130 L (136-145) mmol/L Potassium 4.7 (3.5-5.1) mmol/L Chloride 101 (98-107) mmol/L Carbon Dioxide 24 (21-32) mmol/L Anion Gap 5.0 (3-11) BUN 26 H (7-18) mg/dl Creatinine 0.81 (0.6-1.2) mg/dl Est Cr Clr Drug Dosing 71.2 ml/min Est GFR ( Amer) 82.9 ml/min Est GFR (Non-Af Amer) 71.5 ml/min BUN/Creatinine Ratio 31.6 H (10-20) Glucose 127 H (70-99) mg/dl Calcium 8.7 (8.5-10.1) mg/dl Phosphorus 2.9 (2.5-4.9) mg/dl Magnesium 2.1 (1.8-2.4) mg/dl Total Bilirubin 7.8 H (0.2-1) mg/dl Direct Bilirubin 7.0 H (0-0.2) mg/dl AST 193 H (15-37) U/L ALT 250 H (12-78) Alkaline Phosphatase 308 H D (45-117) U/L Total Creatine Kinase 76 (26-192) U/L Troponin I < 0.015 (0-0.045) ng/ml NT-Pro-B Natriuret Pep 201 (0-900) pg/ml Total Protein 5.5 L (6.4-8.2) gm/dl Albumin 1.6 L (3.4-5.0) gm/dl Globulin 3.9 (2.5-4.0) gm/dl Albumin/Globulin Ratio 0.4 L (0.9-2) Lipase 380 (73-393) U/L SARS-CoV-2, RNA, NAAT (NEGATIVE) 08/24/21 Range/Units 18:20 WBC (4.8-10.8) K/uL RBC (4.2-5.4) M/uL Hgb (12.0-16.0) g/dL Hct (37-47) % MCV (80-100) fL MCH (25-34) pg MCHC (32-36) g/dL RDW Std Deviation (36.4-46.3) fL RDW Coeff of Janet (11.5-14.5) % Plt Count (130-400) K/uL MPV (7.4-10.4) fL Immature Gran % (Auto) % Neut % (Auto) % Lymph % (Auto) % [place] % (Auto) % Eos % (Auto) % Baso % (Auto) % Neut # (Auto) (1.4-6.5) K/uL Lymph # (Auto) (1.2-3.4) K/uL [place] # (Auto) (0.11-0.59) K/uL Eos # (Auto) (0-0.5) K/uL Baso # (Auto) (0-0.2) K/uL Immature Gran # (Auto) (0.00-0.02) K/uL Anisocytosis Target Cells Echinocytes PT (9.0-12.0) Seconds INR (0.9-1.1) Sodium (136-145) mmol/L Potassium (3.5-5.1) mmol/L Chloride (98-107) mmol/L Carbon Dioxide (21-32) mmol/L Anion Gap (3-11) BUN (7-18) mg/dl Creatinine (0.6-1.2) mg/dl Est Cr Clr Drug Dosing ml/min Est GFR ( Amer) ml/min Est GFR (Non-Af Amer) ml/min BUN/Creatinine Ratio (10-20) Glucose (70-99) mg/dl Calcium (8.5-10.1) mg/dl Phosphorus (2.5-4.9) mg/dl Magnesium (1.8-2.4) mg/dl Total Bilirubin (0.2-1) mg/dl Direct Bilirubin (0-0.2) mg/dl AST (15-37) U/L ALT (12-78) Alkaline Phosphatase (45-117) U/L Total Creatine Kinase (26-192) U/L Troponin I (0-0.045) ng/ml NT-Pro-B Natriuret Pep (0-900) pg/ml Total Protein (6.4-8.2) gm/dl Albumin (3.4-5.0) gm/dl Globulin (2.5-4.0) gm/dl Albumin/Globulin Ratio (0.9-2) Lipase (73-393) U/L SARS-CoV-2, RNA, NAAT NEGATIVE (NEGATIVE) Administered Medications Heparin Sodium (Porcine) (Heparin Sod 5,000 Unit/0.5 Ml Vial) 5,000 units SQ Q8 CHAUNCEY Stop: 09/23/21 21:59 Last Admin: 08/24/21 22:01 Dose: 5,000 units Documented by: [id number] Discontinued Medications Furosemide (Furosemide 40 Mg/4 Ml Vial) 40 mg IV ONE ONE Stop: 08/24/21 19:31 Last Admin: 08/24/21 19:45 Dose: 40 mg Documented by: [id number] Imaging Data Radiologist's Impression: Chest X-Ray 08/24/21 17:58 XR chest 1V portable HISTORY: Atypical Chest Pain COMPARISON: Chest 08/04/2021. FINDINGS: There are low lung volumes. No focal lung consolidations to suggest pneumonia. No evidence for pulmonary edema. No pleural effusions. No pneumothorax. The heart is normal in size. Mitral annulus calcifications are again noted. IMPRESSION: Low lung volumes. Otherwise, no acute process within the chest. ACT 112: Negative or not required by law. Electronically signed by: Basil Coronado M.D. 08/24/2021 7:36 PM Discharge Plan Visit Data Chief Complaint: Swelling/Edema to Extremity Stated Complaint: EDEMA TO BOTH LEGS, SOB ED Provider: Pollo Salcedo Discharge Problem: Physical deconditioning, Autoimmune hepatitis, Edema Patient Disposition: Admitted As Inpatient Discharge Instructions Interventions: ED Discharge Assessment Last Done: 08/24/21 21:30
--- NOTE | 2021-08-24 18:19 | History & Physical Report ---
Date of Service August 24, 2021 Assessment & Plan (1) Autoimmune hepatitis: Plan: Patient workup and diagnosis from admission 08/04 - continue with prednisone 30 mg PO Daily - Continue with Ursodiol for pruritus - 40mg IV lasix now - Her LFTs, INR, bili continue to improve - NA is lower to 130, will diurese as above - WBC 14 likely demargination with steroids- down from discharge afebrile - UA on admission (2) Edema: Plan: Lower extremity pitting edema secondary to low albumin and cirrhosis/KEV - Lasix 40mg IV now - Continue daily as needed (3) GERD (gastroesophageal reflux disease): Plan: Continue Pantoprazole 40mg daily (4) Hypertension: Plan: Controlled (5) Physical deconditioning: Plan: Secondary to acute illness and lower extremity edema leading to inability to perform ADLS - She would like to go to rehab facility- ? pending [facility] as per HPI - PT/OT evaluation - Case management consult History of Present Illness Primary Care Provider: Jasiel Sauceda MD 76 YOF recently discharged on August 15 for what appeared to be autoimmune hepatitis with KEV. She comes in today for increase in weakness and inability to continue independent care at home and is looking for possible rehab placement. Patient has neighbors that come and help her but she is very depend ent on them to help her get dressed, get up and move around, and with meals. She states that once she is up and moving, she is doing ok with her walker, but is having problems mobilizing secondary to the edema in her legs and abdomen. She is eating well with no abdominal pain or with any change in stools. She has not had any dyspnea or chest pain. She does endorse some "flightiness" from her steroid dosing. She follows with [facility]. She was discharged on steroid taper and should be transitioning to 30mg daily for 2 weeks today (which she did) and then another taper to start on Sep 07 20 mg daily with future directions from GI regarding further immunosuppressive medications. 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 Liver US was performed that revealed cirrhosis without biliary obstruction and she had a liver biopsy performed- this reportedly had evidence of AIH and possible overlap with further testing being done at [facility]. AFP was 10. She was started on steroids and had improvement of her LFTS to AST 353 (1041); ALT 464 (798), ALKPO4 390(478), Tbili 9 (12.7) and NA of 134. She remains on her Ursodiol for itching, prednisone, and pantoprazole. Patient states that she thinks she is waiting on placement at [facility] for rehab, but has not heard anything back yet. She also has not had her follow up with GI as she cancelled her appointments secondary to not being able to get out of the house. She did not reschedule at that time. Allergies Allergy/AdvReac Type Severity Reaction Status Date / Time No Known Allergies Allergy Unknown Verified 08/24/21 19:17 Home Medications Medication Instructions Recorded Confirmed Type pantoprazole 40 mg tablet,delayed 40 mg PO QAM #30 tab 08/17/21 08/24/21 Rx release prednisone 10 mg tablet 40 mg PO DAILY #80 tab 08/17/21 08/24/21 Rx ursodiol 300 mg capsule 600 mg PO BIDM #120 cap 08/17/21 08/24/21 Rx Past Med/Surg History Medical History Acute hypokalemia Autoimmune hepatitis GERD (gastroesophageal reflux disease) High cholesterol Hypertension Pancreatitis Rhabdomyolysis Social History Smoking Status: Never smoker Hx Alcohol Use: Yes Alcohol type: hard liquor Hx Substance Use: No Preferred Language: Indonesian Communication Ability: Effective 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 marital status: Current Living Situation: Alone Feels Safe at Home: Yes Assistive Devices: None Review of Systems Review of Systems: REVIEW OF SYSTEMS: Constitutional: No fever, sweats or chills Eyes: No diplopia, no worsening or blurred vision ENT: normal hearing, no trouble swallowing Respiratory: No cough, sputum, dyspnea at rest or on exertion Cardiovascular: (+) edema, No chest pain, tightness or palpitations Abdomen: No pain, nausea, vomiting, diarrhea or constipation Musculoskeletal: No joint pain, calf pain, swelling Neurologic: (+) generalized weakness from edema, No focal weakness, numbness/tingling, or balance problems Psychiatric: No anxiety or depression Skin: (+) jaundice, itching controlled Physical Exam Physical Exam: PHYSICAL EXAM: General: awake, alert, no apparent distress Head: Normocephalic, atraumatic ENT: icteric, PERRL, EOMI, no pharyngeal exudate, mucous membranes moist Neuro: AAO x 3, speech clear and appropriate, strength intact bilaterally 5/5, sensation intact and equal all extremities and dermatomes, no pronator drift Chest: equal rise and fall of the chest, no accessory muscle use, no heaves or thrills, Clear to auscultation, on room air, Cardiac: Regular rate and rhythm, telemetry reviewed-NSR, skin warm dry, cap refill <3 seconds, peripheral pulses +2 no JVD, Grade III systolic murmur best at LSB, pitting edema from feet up to abdomen and sacrum GI: NABS x 4 quadrants, soft, nontender to palpation, no rebound, guarding or tenderness : Spontaneously voiding, no pain, no CVA tenderness, Extremities: Normal inspection, no calfs nontender to palpation Psych: Normal mood and affect Skin: no rash Results & Data Results & Data ([facility]) Vital Signs (Past 12 Hours) Vital Signs Temp Pulse Pulse Resp BP BP Pulse Ox 08/24/21 17:45 36.7 C 98 H 98 H 29 H 142/76 H 142/76 H 98 Laboratory Results Abnormal lab results 08/24/21 08/24/21 08/24/21 Range/Units 18:02 18:02 18:02 WBC 14.89 H (4.8-10.8) K/uL RBC 3.84 L (4.2-5.4) M/uL Hct 36.3 L (37-47) % RDW Std Deviation 72.4 H (36.4-46.3) fL RDW Coeff of Janet 21.2 H (11.5-14.5) % Neut # (Auto) 13.05 H (1.4-6.5) K/uL Lymph # (Auto) 1.02 L (1.2-3.4) K/uL [place] # (Auto) 0.61 H (0.11-0.59) K/uL Immature Gran # (Auto) 0.19 H (0.00-0.02) K/uL PT 12.1 H (9.0-12.0) Seconds INR 1.2 H (0.9-1.1) Sodium 130 L (136-145) mmol/L BUN 26 H (7-18) mg/dl BUN/Creatinine Ratio 31.6 H (10-20) Glucose 127 H (70-99) mg/dl Total Bilirubin 7.8 H (0.2-1) mg/dl Direct Bilirubin 7.0 H (0-0.2) mg/dl AST 193 H (15-37) U/L ALT 250 H (12-78) Alkaline Phosphatase 308 H D (45-117) U/L Total Protein 5.5 L (6.4-8.2) gm/dl Albumin 1.6 L (3.4-5.0) gm/dl Albumin/Globulin Ratio 0.4 L (0.9-2) Diagnostic Findings none needed Medications Administered Lasix 40mg IV Code Status & VTE Plan Code Status CODE: FULL VTE: SCDs, Heparin 5000 units subq q12 Supervising Physician Co-Signing Physician Notes Patient seen and examined, chart reviewed, case discussed with Diego Charles and I agree with the assessment and plan as above except as otherwise noted Patient is 76-year-old female with a history of GERD, autoimmune hepatitis, liver failure, hypertension, hypercholesterolemia who presents with weakness and inability to care at home. She was recently discharged following an admission for autoimmune hepatitis with acute liver failure. General: A&Ox3. NAD. Cooperative. Generalized body edema/anasarca. HEENT: Atraumatic, normocephalic. Plus scleral icterus. Visual acuity and hearing grossly intact. Pulm: Diminished. Symmetrical chest rise. No increase work of breathing. No respiratory distress. Cardiac: RRR, systolic murmur present without rub/gallops radial pulses intact and symmetrical. Abdominal: Nontender. Extremities: Diffuse lower extremity edema. Ankle dorsiflexion/plantar flexion grossly intact. Sensation is soft touch intact in feet and hands bilaterally. All labs and images reviewed 76-year-old female with autoimmune hepatitis and worsening weakness/ability to care for self. Continue management with steroids as noted above, PT/OT pending, case management consulted for placement. Can continue Lasix for all bloody fluid overload, patient at risk for intravascular depletion due to severe hypoalbuminemia. Boost as tolerated. Troponin negative. PG Care Time/CCT Total # of Minutes Spent Total Time Spent with Patient: Total time spent is greater than 50% in coordination of care (as documented) at patient's floor/unit and/or counseling patient: Coding Level of Care Code 73639 Initial Inpt Care Lvl 3 Diagnoses Autoimmune hepatitis K75.4 GERD (gastroesophageal reflux disease) K21.9 Hypertension I10 Edema R60.9 Physical deconditioning R53.81
[2021-08-24 18:24] LABS: Basophils # (auto) 0.01 K/uL (0-0.2); Basophils % (auto) 0.1 %; Eosinophils # (auto) 0.01 K/uL (0-0.5); Eosinophils % (auto) 0.1 %; Hematocrit (blood only) 36.3 % (37-47); Hemoglobin 12.4 g/dL (12.0-16.0); Immature Granulocytes # (auto) 0.19 K/uL (0.00-0.02); Immature Granulocytes % (auto) 1.3 %; Lymphocytes # (auto) 1.02 K/uL (1.2-3.4); Lymphocytes % (auto) 6.9 %; Mean Corpuscular Hemoglobin 32.3 pg (25-34); Mean Corpuscular Hgb Conc 34.2 g/dL (32-36); Mean Corpuscular Volume 94.5 fL (80-100); Mean Platelet Volume 10.4 fL (7.4-10.4); Monocytes # (auto) 0.61 K/uL (0.11-0.59); Monocytes % (auto) 4.1 %; Neutrophils # (auto) 13.05 K/uL (1.4-6.5); Neutrophils % (auto) 87.5 %; Platelet Count 169 K/uL (130-400); RDW Coefficient of Variation 21.2 % (11.5-14.5); RDW Standard Deviation 72.4 fL (36.4-46.3); Red Blood Count 3.84 M/uL (4.2-5.4); White Blood Count 14.89 K/uL (4.8-10.8)
[2021-08-24 18:43] LABS: Anisocytosis Present; Echinocytes 1+; Target Cells 1+
[2021-08-24 18:47] LABS: INR 1.2 (0.9-1.1); Prothrombin Time 12.1 Seconds (9.0-12.0)
[2021-08-24 18:52] LABS: Alanine Aminotransferase 250 (12-78); Albumin Globulin Ratio 0.4 (0.9-2); Albumin Level 1.6 gm/dl (3.4-5.0); Alkaline Phosphatase 308 U/L (45-117); Aspartate Aminotransferase 193 U/L (15-37); BUN Creatinine Ratio 31.6 (10-20); Bilirubin,Total 7.8 mg/dl (0.2-1); Blood Urea Nitrogen 26 mg/dl (7-18); Calcium 8.7 mg/dl (8.5-10.1); Carbon Dioxide 24 mmol/L (21-32); Chloride 101 mmol/L (98-107); Creatine Kinase 76 U/L (26-192); Creatinine Clr Calc Pharmacy 71.2 ml/min; Est GFR (African American) 82.9 ml/min; Est GFR (Non-African American) 71.5 ml/min; Globulin 3.9 gm/dl (2.5-4.0); Glucose 127 mg/dl (70-99); Lipase 380 U/L (73-393); Magnesium 2.1 mg/dl (1.8-2.4); NT Pro B Type Natriuretic Pept 201 pg/ml (0-900); Phosphorus 2.9 mg/dl (2.5-4.9); Potassium 4.7 mmol/L (3.5-5.1); Sodium 130 mmol/L (136-145); Total Protein 5.5 gm/dl (6.4-8.2); Troponin I < 0.015 ng/ml (0-0.045)
[2021-08-24] MEDS ORDERED: FUROSEMIDE 40 MG/4 ML VIAL IV ONE (19:30)
--- NOTE | 2021-08-24 19:37 | XRay Report ---
XR chest 1V portable HISTORY: Atypical Chest Pain COMPARISON: Chest 08/04/2021. FINDINGS: There are low lung volumes. No focal lung consolidations to suggest pneumonia. No evidence for pulmonary edema. No pleural effusions. No pneumothorax. The heart is normal in size. Mitral annul us calcifications are again noted. IMPRESSION: Low lung volumes. Otherwise, no acute process within the chest. ACT 112: Negative or not required by law. Electronically signed by: Basil Coronado M.D. 08/24/2021 7:36 PM
[2021-08-24] MEDS: HEPARIN SOD 5,000 UNIT/0.5 ML VIAL SQ SCH (22:01)
[2021-08-24 22:17] LABS: Appearance Urine Clear (Clear); Bilirubin Urine Negative (Negative); Blood Urine Negative (Negative); Color Urine Yellow; Glucose Urine UA Negative (Negative); Ketones Urine Negative (Negative); Leukocyte Esterase Urine Negative (Negative); Nitrite Urine Negative (Negative); Protein Urine Negative (Negative); Specific Gravity Urine 1.006 (1.000-1.030); Urobilinogen Urine Negative (Negative)
[2021-08-25 05:39] LABS: Basophils # (auto) 0.01 K/uL (0-0.2); Basophils % (auto) 0.1 %; Eosinophils # (auto) 0.09 K/uL (0-0.5); Eosinophils % (auto) 0.7 %; Hematocrit (blood only) 35.4 % (37-47); Immature Granulocytes # (auto) 0.22 K/uL (0.00-0.02); Immature Granulocytes % (auto) 1.6 %; Lymphocytes # (auto) 1.46 K/uL (1.2-3.4); Lymphocytes % (auto) 10.7 %; Mean Corpuscular Hemoglobin 32.3 pg (25-34); Mean Corpuscular Hgb Conc 33.9 g/dL (32-36); Mean Corpuscular Volume 95.2 fL (80-100); Mean Platelet Volume 9.9 fL (7.4-10.4); Monocytes % (auto) 8.8 %; Neutrophils # (auto) 10.72 K/uL (1.4-6.5); Neutrophils % (auto) 78.1 %; Platelet Count 129 K/uL (130-400); RDW Coefficient of Variation 20.8 % (11.5-14.5); RDW Standard Deviation 72.7 fL (36.4-46.3); Red Blood Count 3.72 M/uL (4.2-5.4)
[2021-08-25 06:03] LABS: Anisocytosis Present; Echinocytes 1+; Target Cells 1+
[2021-08-25 06:04] LABS: INR 1.2 (0.9-1.1); Prothrombin Time 12.3 Seconds (9.0-12.0)
[2021-08-25] MEDS: HEPARIN SOD 5,000 UNIT/0.5 ML VIAL SQ SCH (06:18)
[2021-08-25] MEDS ORDERED: ursodioL 300 MG CAP PO SCH (08:00)
[2021-08-25] MEDS ORDERED: PANTOprazole 40 MG TAB PO SCH (09:00)
[2021-08-25] MEDS ORDERED: predniSONE 10 MG TABLET PO SCH (09:00)
--- NOTE | 2021-08-25 16:18 | Discharge Summary ---
Date of Service August 25, 2021 Admission HPI Per Admitting Provider 76 YOF recently discharged on August 15 for what appeared to be autoimmune hepatitis with KEV. She comes in today for increase in weakness and inability to continue independent care at home and is looking for possible rehab placement. Patient has neighbors that come and help her but she is very dependent on them to help her get dressed, get up and move around, and with meals. She states that once she is up and moving, she is doing ok with her walker, but is having problems mobilizing secondary to the edema in her legs and abdomen. She is eating well with no abdominal pain or with any change in stools . She has not had any dyspnea or chest pain. She does endorse some "flightiness" from her steroid dosing. She follows with [facility]. She was discharged on steroid taper and should be transitioning to 30mg daily for 2 weeks today (which she did) and then another taper to start on Sep 07 20 mg daily with future directions from GI regarding further immunosuppressive medications. 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 Liver US was performed that revealed cirrhosis without biliary obstruction and she had a liver biopsy performed- this reportedly had evidence of AIH and possible overlap with further testing being done at [facility]. AFP was 10. She was started on steroids and had improvement of her LFTS to AST 353 (1041); ALT 464 (798), ALKPO4 390(478), Tbili 9 (12.7) and NA of 134. She remains on her Ursodiol for itching, prednisone, and pantoprazole. Patient states that she thinks she is waiting on placement at [facility] for rehab, but has not heard anything back yet. She also has not had her follow up with GI as she cancelled her appointments secondary to not being able to get out of the house. She did not reschedule at that time. Principal Diagnosis Deconditioning due to Autoimmune Hepatitis and Lower Extremity Edema Discharge Exam PHYSICAL EXAM General Appearance: WDWN in NAD who is A&O x 3 HEENT: Head is normocephalic/atraumatic; Hearing grossly intact; Mucous membranes moist; icteric Neck: Supple; Trachea midline; Neg JVD Heart: RRR with murmur III/ systolic Lungs: CTA in all lung cruz bilaterally; Respirations unlabored Abdomen: Soft, non-tender, non-distended; Positive BS x 4 quadrants Extremities: Bilateral pitting edema extending to abdomen/sacrum Neurological: Speech clear; Gross motor/sensory function intact; Neg focal neurologic deficits Psychiatric: Appropriate mood/affect Skin: Jaundiced Discharge Data Allergies Allergy/AdvReac Type Severity Reaction Status Date / Time No Known Allergies Allergy Unknown Verified 08/24/21 19:17 Consultations 08/24/21 18:59 ED Decision to Admit Stat Ordered Studies Chest X-Ray 08/24/21 17:58 XR chest 1V portable HISTORY: Atypical Chest Pain COMPARISON: Chest 08/04/2021. FINDINGS: There are low lung volumes. No focal lung consolidations to suggest pneumonia. No evidence for pulmonary edema. No pleural effusions. No pneumothorax. The heart is normal in size. Mitral annulus calcifications are again noted. IMPRESSION: Low lung volumes. Otherwise, no acute process within the chest. ACT 112: Negative or not required by law. Electronically signed by: Basil Coronado M.D. 08/24/2021 7:36 PM Hospital Course (1) Autoimmune hepatitis: - Patient workup and diagnosis from admission 08/04 but upon return home she had more difficulty performing ADLs and managing at home and requested rehab - suspect a mixture of deconditioning and her edema factoring into this - Continue Prednisone 30 mg daily and on September 07 she would transition to 20 mg daily then will need F/U with GI team to discuss further treatment/management - Continue with Ursodiol for pruritus - Her LFTs, INR, bili continue to improve - NA is lower to 130, will diurese as above - WBC 14 likely demargination with steroids- down from discharge afebrile - UA unremarkable (2) Edema: - Lower extremity pitting edema secondary to low albumin and cirrhosis/FDC - Lasix 40mg IV given in-house; Continue Lasix 40 mg po daily x 3 days with outpatient CMP to assess renal and liver function -- Suspect will need possibly more days to assist with diuresis but will need to monitor labs closely (3) GERD (gastroesophageal reflux disease): Continue Pantoprazole 40mg daily (4) Hypertension: Controlled -- On previous admission amlodipine was stopped (5) Physical deconditioning: Secondary to acute illness and lower extremity edema leading to inability to perform ADLS - D/C to [facility] for acute rehab - Will need CMP and INR check in 2-3 days - F/U with [facility] [place] [facility] GI team given steroid taper and continued treatment - Monitor lower extremity edema and can use Lasix intermittently pending labs Total Time Total Time Spent Total Time Spent (In Minutes): Spent greater than 30 minutes preparing patient for discharge. This includes discussion with patient/family, assessment, intervention, medication reconciliation, and coordination of care. Discharge Plan Discharge Items Patient Disposition: Transfer Inpatient Rehab Fac Reason For Visit: DIFFICULTY WITH SELF CARE, LEG EDEMA Discharge Diagnosis: Difficulty with Ambulation; Autoimmune Hepatitis Activity: Resume your previous activity Non-emergency contact: Primary Care Provider Call non-emergency contact if: you have any medication questions, your symptoms worsen and you have a fever Follow-up/Referrals: Jasiel Sauceda MD [Primary Care Provider] - Diet: Low Sodium (2gm) Addtl Attending Provider Instructions: Autoimmune Hepatitis: - You were previously admitted due to autoimmune hepatitis but unfortunately you were having issues at home due to weakness - You will continue your Prednisone at 30 mg daily for the next 2 weeks and then on September 07 transition to Prednisone 20 mg daily then have further direction by your GI doctors for further treatment/management - Your liver numbers continue to improve -- AST down to 193 from 353 -- ALT down to 250 from 464 -- Alk phos down to 308 from 390 -- Bilirubin down to 7.8 from 9 Lower Extremity Edema: - This is likely in the setting of low albumin (protein stores) and your liver issues. Likely contributing to her difficulties with ADLs - You were given Lasix in the hospital which did produce some diuresis (removal of fluid) - Recommend Lasix 40 mg daily x 3 days with a CMP (lab work) to assess renal function and electrolytes (recommend draw on or 27 of August) -- Suspect given the level of edema may need more than 3 days but would await lab monitoring GERD: - Continue Pantoprazole 40 mg daily Disposition: - Recommend CMP and INR on the or 27 of August to reassess liver tests and renal function in setting of Lasix - Follow-up with GI providers ([facility]) as previously arranged On previous admission. Amlodipine, Ezetimibe, and Atorvastatin were held due to liver numbers and would recommend continuing to hold for now. Pending Studies at Discharge: No Stand-Alone Forms: My [facility] Skilled Items Patient informed of condition?: Yes DNR: No Discharge Level of Care: Acute rehab Communicable Disease: No Discharge Prognosis: Stable Lines: None Urinary Catheter: No Medications and DC Order Prescriptions: Continued pantoprazole 40 mg Tablet,Delayed Release (Dr/Ec) 40 mg PO QAM Qty: 30 RF: 0 ursodiol 300 mg Capsule 600 mg PO BIDM Qty: 120 RF: 0 Changed prednisone 10 mg tablet 30 mg PO DAILY Qty: 80 RF: 0 Discharge Orders: Discharge Order (Routine); Ordered 08/25/21 Ordered By: Nancy Radford Admission Data Admit Date/Time: 08/24/21 19:11 Attending Provider: Nadeem Hoyt Admit Provider: Emory Ennis Primary Care Provider: Jasiel Sauceda Other Providers: Emory Ennis ; [facility] Other Interventions: Discharge Summary Assessment (RN) Last Done: 08/25/21 14:35 Supervising Physician Co-Signing Physician Notes Attending note: patient seen and examined with Nancy Radford PA-C. I agree with her discharge summary. I personally reviewed the labs and imaging findings. patient is breathing well, eating well, still feels weak and happy she is going to [facility] - Deconditioning, autoimmune hepatitis transfer to [facility] for rehabilitation Coding Level of Care Code D/C DAY MANAGEMENT >30 MINS Diagnoses Autoimmune hepatitis K75.4 Edema R60.9 GERD (gastroesophageal reflux disease) K21.9 Hypertension I10 Physical deconditioning R53.81
--- NOTE | 2021-08-26 10:22 | Electrocardiogram Report ---
Test Reason : Blood Pressure : / mmHG Vent. Rate : 089 BPM Atrial Rate : 089 BPM P-R Int : 146 ms QRS Dur : 086 ms QT Int : 352 ms P-R-T Axes : 053 008 020 degrees QTc Int : 428 ms Poor data quality, interpretation may be adversely affected Normal sinus rhythm Nonspecific ST abnormality Abnormal ECG When compared with ECG of 04-AUG-2021 16:23, T wave inversion no longer evident in Inferior leads Nonspecific T wave abnormality no longer evident in Anterolateral leads QT has shortened Confirmed by Ricci Chavez ([id number]) on 08/26/2021 10:21:51 AM Referred By: REFERRED SELF Confirmed By:Ricci Chavez
== END 2021-08-25 14:35 ==
LOC: ED 17:38 → SUATTDRO 19:11 → EDINP 19:11 → INTOOBSV 19:11 → EDINP 21:30